=== PATIENT | male | born 1940 | race Caucasian/White ===

== ENCOUNTER 2020-08-05 11:58 | Outpatient (REF) | payer MEDICARE, SELFPAY | END 2020-08-05 11:59 | disposition home or self-care (01) | LOC: HO.LAB 11:58 | PROVIDERS: PCP Internal Medicine; Visit Provider Internal Medicine | DX: Z20.828 Contact with and (suspected) exposure to other viral communicable diseases (principal) | CPT/HCPCS: 87635 ==

== ENCOUNTER → 2020-08-10 12:46 | Outpatient (BNVA) | payer MEDICARE, SELFPAY | PROVIDERS: PCP Internal Medicine; Referring Provider Internal Medicine; Visit Provider Orthopaedic Surgery | DX: Z47.1 Aftercare following joint replacement surgery (principal); Z96.652 Presence of left artificial knee joint | CPT/HCPCS: 99212 ==

== ENCOUNTER 2020-08-11 08:59 | Outpatient (REF) | payer MEDICARE, SELFPAY ==
[2020-08-11 10:17] LABS: Hematocrit 42.2 % (42-52); Mean Corpuscular HGB Conc 33.2 g/dl (31.0-36.0); Mean Corpuscular Hemoglobin 32.9 pg (27.0-33.0); Mean Corpuscular Volume 99.1 fL (80-98); Mean Platelet Volume 9.6 fL (9.4-12.4); Platelet Count 250 X10*3/uL (160-400); Red Blood Count 4.26 X10*6/uL (4.60-5.80); Red Cell Distribution Width 12.8 % (11.0-16.0)
[2020-08-11 11:07] LABS: Anion Gap 12 (12-20); Blood Urea Nitrogen 12 mg/dL (9-16); Carbon Dioxide 28 mmol/L (22-29); Chloride 103 mmol/L (96-108); Estimated Glomerular Filt Rate > 60; Glucose Random 94 mg/dL (60-115); Potassium 4.2 mmol/l (3.3-5.1); Sodium 139 mmol/L (135-145)
== END 2020-08-11 09:00 | disposition home or self-care (01) ==
LOC: HO.LAB 08:59
PROVIDERS: PCP Internal Medicine; Visit Provider Physician Assistant
DX: R42 Dizziness and giddiness (principal)
CPT/HCPCS: 36415; 80048; 85027

== ENCOUNTER 2020-08-24 15:00 | Outpatient (RCR) | payer MEDICARE, SELFPAY ==
--- NOTE | 2020-07-27 14:00 | MHC.PT.EP ---
[facility] [place] [facility] [place] [facility] [place] [facility] [address] Gutierrez Oquendo [address] [phone] F: [phone] F: [phone] F: [phone] F: [phone] Physical Therapy Plan of Care Date of Evaluation: 07/27/20 Date of Surgery: 06/27/20 Diagnosis: s/p L TKA Assessment: 79 y/o male s/p L TKA 06/27/2020. Currently reports difficulty with ambulating > 0.5miles, ascending/descending stairs, and running. Examination shows decreased knee AROM 0-102, decreased L knee HS/quad/hip strength, increased swelling, and decreased patella mobility. Recommend PT 2x/week for 4 weeks to address impairments, implement HEP, and optimize functional mobility. Frequency and Duration: The patient will be seen 2x/week for 4 weeks Short Term Goals: 2 weeks: 1. I with HEP 2. Demonstrate 0-120 L knee AROM Tool Specialist Goals: 4 weeks: 1. Pt will ambulate >2miles with L knee pain < 3/10 2. Pt will ascend/descend stairs in step through pattern with pain < 3/10 Treatment Plan: Modalities to reduce pain, spasms and effusion. Manual therapy to restore motion and function. Therapeutic exercise to improve strength and flexibility. Neuromuscular re-education for posture and balance. Therapeutic activities to return to functional activities of daily living. Please sign and return to therapist. Thank you for your referral.
--- NOTE | 2020-08-24 15:55 | MHC.PT.DC ---
[facility] [place] Office [place] [facility] [place] [facility] [address] Gutierrez Oquendo [address] [phone] F: [phone] F: [phone] F: [phone] F: [phone] Physical Therapy Discharge Report Diagnosis: L TKA Date of Surgery: 06/27/20 Date of Evaluation: 07/27/20 Date of Discharge: 08/24/20 Treatments to Date: 4 Cancellations to Date: 4 No Shows to Date: 0 Discharge Status: Achieved Goals Discharge Summary: Pt has been making good progress and is now able to ascend/descend stairs in step through pattern and is walking over a mile/day. He has no pain in L knee, AROM 0-118 and I with HEP. We reviewed importance of continuing with strengthening and performing HEP with intent (slowly emphasizing eccentric control.) Electronically signed by: Roxane Bernstein, PT, DPT Please sign and return to therapist. Thank you for your referral.
== END 2020-08-24 15:56 | disposition other institution (70) ==
LOC: HO.PT 15:00
PROVIDERS: PCP Internal Medicine; Visit Provider Orthopaedic Surgery
DX: Z47.1 Aftercare following joint replacement surgery (principal); Z96.652 Presence of left artificial knee joint
CPT/HCPCS: 97110; 97161; 97530

== ENCOUNTER 2020-09-21 09:00 | Outpatient (REF) | payer MEDICARE, SELFPAY ==
--- NOTE | 2020-09-21 09:16 | XR_ITS ---
EXAMINATION: BILATERAL AP KNEE STANDING AND LEFT KNEE CLINICAL INFORMATION: Pain right knee. COMPARISON: AP bilateral knee 06/28/2020 and left knee 06/22/2020 TECHNIQUE: AP bilateral knee standing and left knee 1 view. FINDINGS: AP bilateral knee: There is a total left knee prosthesis with prosthetic components in satisfactory alignment. There is moderate loss of medial and mild loss of lateral compartment joint space right knee with periarticular spurring. No loose bodies or bony erosive changes seen. Left knee: There is mild suprapatellar joint effusion left knee on lateral view with superior and inferior cartilage heights. There is mild infrapatellar soft tissue swelling.. XR/XR knee standing BI IMPRESSION: Left knee prosthesis in satisfactory alignment. Moderate to severe degenerative arthritic changes medial compartment and mild arthritic changes lateral compartment right knee. There is moderate joint effusion left knee. The prosthetic components in satisfactory alignment. Also visualized is mild and inferior patellar soft tissue swelling.
--- NOTE | 2020-09-21 09:16 | XR_ITS ---
EXAMINATION: BILATERAL AP KNEE STANDING AND LEFT KNEE CLINICAL INFORMATION: Pain right knee. COMPARISON: AP bilateral knee 06/28/2020 and left knee 06/22/2020 TECHNIQUE: AP bilateral knee standing and left knee 1 view. FINDINGS: AP bilateral knee: There is a total left knee prosthesis with prosthetic components in satisfactory alignment. There is moderate loss of medial and mild loss of lateral compartment joint space right knee with periarticular spurring. No loose bodies or bony erosive changes seen. Left knee: There is mild suprapatellar joint effusion left knee on lateral view with superior and inferior cartilage heights. There is mild infrapatellar soft tissue swelling.. XR/XR knee LT 2V IMPRESSION: Left knee prosthesis in satisfactory alignment. Moderate to severe degenerative arthritic changes medial compartment and mild arthritic changes lateral compartment right knee. There is moderate joint effusion left knee. The prosthetic components in satisfactory alignment. Also visualized is mild and inferior patellar soft tissue swelling.
== END 2020-09-21 09:01 | disposition home or self-care (01) ==
LOC: HO.HOSX 09:00
PROVIDERS: Visit Provider Orthopaedic Surgery
DX: M25.562 Pain in left knee (principal); M25.561 Pain in right knee; Z96.652 Presence of left artificial knee joint
CPT/HCPCS: 73560; 73565; 99212

== ENCOUNTER → 2021-03-24 09:26 | Outpatient (BNVA) | payer MEDICARE, SELFPAY | PROVIDERS: PCP Internal Medicine; Visit Provider Orthopaedic Surgery | DX: M17.11 Unilateral primary osteoarthritis, right knee (principal) | CPT/HCPCS: 99212 ==

== ENCOUNTER → 2021-05-17 11:55 | Outpatient (BNVA) | payer MEDICARE, SELFPAY | PROVIDERS: PCP Internal Medicine; Visit Provider Physician Assistant | DX: M17.11 Unilateral primary osteoarthritis, right knee (principal) | CPT/HCPCS: 99212 ==

== ENCOUNTER 2021-05-22 05:55 | Day surgery (SDC) | payer MEDICARE, SELFPAY ==
--- NOTE | 2021-05-09 10:42 | ECG_ITS ---
Test Reason : PREOP Blood Pressure : / mmHG Vent. Rate : 062 BPM Atrial Rate : 062 BPM P-R Int : 208 ms QRS Dur : 096 ms QT Int : 406 ms P-R-T Axes : 060 -43 042 degrees QTc Int : 412 ms Normal sinus rhythm Left axis deviation Abnormal ECG When compared with ECG of 27-MAY-2020 13:10, No significant change was found Referred By: Syeda Instrum Electronically Signed By:KAHLIL SCHNEIDER
[2021-05-09 11:41] LABS: MANUAL DIFF FLAG NO
[2021-05-09 11:49] LABS: Basophils Percent Auto 0.7 % (0-2); Eosinophils Absolute Auto 0.1 X10*3/uL (0.0-0.4); Eosinophils Percent Auto 1.3 % (0-4); Hematocrit 41.2 % (42-52); Hemoglobin 14.1 g/dl (14.0-18.0); Imm Gran Abs Auto 0.01 X10*3/uL (0.00-0.03); Imm Gran Pct Auto 0.2 % (0.0-0.4); Lymphocytes Absolute Auto 1.5 X10*3/uL (1.2-4.9); Lymphocytes Percent Auto 26.8 % (20-40); Mean Corpuscular HGB Conc 34.2 g/dl (31.0-36.0); Mean Corpuscular Hemoglobin 33.3 pg (27.0-33.0); Mean Corpuscular Volume 97.2 fL (80-98); Mean Platelet Volume 10.4 fL (9.4-12.4); Monocytes Absolute Auto 0.5 X10*3/uL (0.1-1.2); Monocytes Percent Auto 9.2 % (2-11); Neutrophils Absolute Auto 3.4 X10*3/uL (2.0-8.3); Neutrophils Percent Auto 61.8 % (45-73); Platelet Count 176 X10*3/uL (160-400); Red Blood Count 4.24 X10*6/uL (4.60-5.80); Red Cell Distribution Width 12.5 % (11.0-16.0); White Blood Count 5.6 X10*3/uL (4.8-10.8)
[2021-05-09 12:08] LABS: Alanine Aminotransferase 20 U/L (0-40); Albumin Level 4.3 g/dL (3.5-5.0); Alkaline Phosphatase 72 U/L (39-117); Anion Gap 11 (12-20); Aspartate Amino Transferase 19 U/L (5-37); Bilirubin Total 0.7 mg/dL (0.0-1.0); Blood Urea Nitrogen 17 mg/dL (9-16); Calcium 9.3 mg/dL (8.4-10.2); Carbon Dioxide 27 mmol/L (22-29); Chloride 107 mmol/L (96-108); Cholesterol 163 mg/dL; Estimated Glomerular Filt Rate > 60; Glucose Random 92 mg/dL (60-115); HDL Cholesterol 34 mg/dL; LDL Cholesterol Calculated 80 mg/dl; Potassium 4.9 mmol/L (3.3-5.1); Sodium 140 mmol/L (135-145); Total Protein 7.4 g/dL (6.5-8.0); Triglycerides 245 mg/dL; Uric Acid 5.6 mg/dL (3.4-7.0)
[2021-05-09 12:29] LABS: Free T4 (Free Thyroxine) 0.95 ng/dL (0.71-1.85); Thyroid Stimulating Hormone 2.81 uIU/mL (0.32-4.0)
[2021-05-09 13:20] LABS: Folate 18.1 ng/mL (> or = 4.0); Vitamin B12 635 pg/mL (200-900)
[2021-05-11 11:45] VITALS: BP 119/69; PULSE 76; RESP 16; O2SAT 98; BMI 24.7
--- NOTE | 2021-05-11 12:12 | P.CONAN_ITS ---
Documented by User: Florinda Brittney 05/19/21 08:12 HPI - Anesthesia Eval Consult details Narrative: 80yo M for Right Total Knee Replacement No blood or blood products r/t gnosticism* [facility] Active Problems Active Problems: All Active Problems (Updated 03/24/21 @ 09:53 by Syeda Butts MD) Status post total knee replacement, left (Acute) Dizziness (Acute) BPPV (benign paroxysmal positional vertigo) (Acute) Primary osteoarthritis of right knee (Acute) Past Medical History Medical History Ganglion cyst of wrist Osteoarthritis of right knee Family History Family History Father No problems noted. Mother Diabetes Family history of problems with anesthesia: No Surgical History Surgical History H/O wrist surgery History of blepharoplasty History of inguinal hernia repair History of lumbar surgery Hx of colonoscopy Status post total left knee replacement (~06/27/20) History of Problems with Anesthesia: No Social History Social History Housing: House Are you a primary resident care spec to a significant other at home: No Do you presently have visiting nurse or other home services: No Alcohol intake: current Alcohol intake frequency: holidays/special occasions only Patient Tobacco Use Status: Former Tobacco user Quit Date: 1966 Tobacco use type: Cigarette e-Cigarette/Vaping Use: Never Used Second Hand Smoke Exposure: No Have you been hit, kicked, punched, or otherwise hurt by someone within the past year? If so, by whom?: No Yazdanism Healthcare Practices: Yarsanism-no blood products Are you DNR?: No Advance Directives: Yes Advance Directives Information Provided: Yes Advance Directives on File: Yes Advance Directives Date on File: 07/27/20 Recently lost weight without trying: No Poor oral hygiene: No service: Yes Current occupational status: retired Current occupation: Right Handed Narrative Narrative: No recent illness >4 mets with walking or stationar bike regularly No recent vertigo symptoms Meds Allergies Allergy/AdvReac Type Severity Reaction Status Date / Time naproxen [Aleve] Allergy Unknown nausea and Verified 05/22/21 06:07 vomiting Home Medications Medication Instructions Recorded Confirmed Last Taken Type celecoxib 200 mg capsule (Celebrex) 200 mg PO DAILY PRN 05/11/21 05/11/21 Unknown History glucosamine 750 mg-chondroitin 600 1 tab PO DAILY 05/11/21 05/11/21 Unknown History mg chewable tablet iron 18 mg tablet 18 mg PO DAILY 05/11/21 05/11/21 Unknown History axkbshonyyva-ytw-xbfpp acid-vit 1 tab PO DAILY 05/11/21 05/11/21 Unknown History K-lycop 400 mcg-20 mcg-370 mcg tablet (One-A-Day Amiato's 50 Plus) Exam Exam Date and Time: May 11, 2021 1212 Height,Weight and Vital Signs: Height 5 ft 5 in Weight 67.3 kg Last Vital Signs Pulse 76 05/11/21 11:45 Resp 16 05/11/21 11:45 BP 119/69 05/11/21 11:45 Pulse Ox 98 05/11/21 11:45 Pertinent Lab Results Pertinent Lab Results: Laboratory Tests 05/09/21 05/09/21 05/09/21 11:01 11:01 11:01 WBC 5.6 RBC 4.24 L Hgb 14.1 Hct 41.2 L MCV 97.2 MCH 33.3 H MCHC 34.2 RDW 12.5 Plt Count 176 D MPV 10.4 Immature Gran % (Auto) 0.2 Neut % (Auto) 61.8 Lymph % (Auto) 26.8 [place] % (Auto) 9.2 Eos % (Auto) 1.3 Baso % (Auto) 0.7 Lymph # (Auto) 1.5 [place]eman # (Auto) 0.5 Eos # (Auto) 0.1 Baso # (Auto) 0.0 Abs Immat Gran (auto) 0.01 Absolute Neuts (auto) 3.4 Absolute Nucleated RBC 0.000 Nucleated RBC % (auto) 0.0 Sodium 140 Potassium 4.9 Chloride 107 Carbon Dioxide 27 Anion Gap 11 L BUN 17 H Creatinine 0.86 Estim Creat Clear Calc TNP Estimated GFR > 60 Random Glucose 92 Uric Acid 5.6 Calcium 9.3 Total Bilirubin 0.7 AST 19 ALT 20 Alkaline Phosphatase 72 Total Protein 7.4 Albumin 4.3 Triglycerides 245 Cholesterol 163 LDL Cholesterol, Calc 80 HDL Cholesterol 34 Vitamin B12 635 Folate 18.1 TSH 2.81 Free T4 0.95 Narrative Narrative: EKG 04/2021 NSR @ 62 LAD No change from 05/2020 Airway Mallampati Class: I Neck ROM: Full Loose/Missing/Broken Teeth: No Heart: RRR Lungs: CTAB Assessment and Plan Assessment Anesthesia Assessment: Anesthesia Plan Discussed and PAT Visit Final Anesthetic Review Family History of Problems with Anesthesia: No History of Problems with Anesthesia: No Documented by User: Tamiko Fisher MD 05/22/21 07:11 [facility] Past Medical History Medical History Ganglion cyst of wrist Osteoarthritis of right knee Family History Family History Father No problems noted. Mother Diabetes Surgical History Surgical History H/O wrist surgery History of blepharoplasty History of inguinal hernia repair History of lumbar surgery Hx of colonoscopy Status post total left knee replacement (~06/27/20) Social History Social History Housing: House Are you a primary resident care spec to a significant other at home: No Do you presently have visiting nurse or other home services: No Alcohol intake: current Alcohol intake frequency: holidays/special occasions only Patient Tobacco Use Status: Former Tobacco user Quit Date: 1966 Tobacco use type: Cigarette e-Cigarette/Vaping Use: Never Used Second Hand Smoke Exposure: No Have you been hit, kicked, punched, or otherwise hurt by someone within the past year? If so, by whom?: No Yazdanism Healthcare Practices: Yarsanism-no blood products Are you DNR?: No Advance Directives: Yes Advance Directives Information Provided: Yes Advance Directives on File: Yes Advance Directives Date on File: 07/27/20 Recently lost weight without trying: No Poor oral hygiene: No service: Yes Current occupational status: retired Current occupation: Right Handed Meds Allergies Allergy/AdvReac Type Severity Reaction Status Date / Time naproxen [Aleve] Allergy Unknown nausea and Verified 05/22/21 06:07 vomiting Home Medications Medication Instructions Recorded Confirmed Last Taken Type celecoxib 200 mg capsule (Celebrex) 200 mg PO DAILY PRN 05/11/21 05/11/21 Unknown History glucosamine 750 mg-chondroitin 600 1 tab PO DAILY 05/11/21 05/11/21 Unknown History mg chewable tablet iron 18 mg tablet 18 mg PO DAILY 05/11/21 05/11/21 Unknown History cezaqoyxqpdp-zda-zlyam acid-vit 1 tab PO DAILY 05/11/21 05/11/21 Unknown History K-lycop 400 mcg-20 mcg-370 mcg tablet (One-A-Day Men's 50 Plus) Assessment and Plan Final Anesthetic Review NPO: Yes ASA Class: II Final Preanesthetic Review: No Changes in Pt Med Stat, Meds/Allgs Chart Reviewed, Consent Obtained/Reviewed and Anes Risks/Benef Reviewed Patient Risk: Low Procedure Risk: Intermediate Assessment/Block/Sedation in SS: Assess/Block/Sedation-SS Anesthetic Plan Anesthetic Plan: Spinal and Regional Block
[2021-05-11 15:15] LABS: MRSA Nasal PCR NEGATIVE (Negative); SA Nasal PCR NEGATIVE (Negative)
[2021-05-22] VITALS (12 sets, daily range): BP systolic 89–149; BP diastolic 60–81; PULSE 56–79; RESP 16–20; TEMP 35.8–37; O2SAT 96–100
--- NOTE | ~2021-05-22 | XR_ITS ---
EXAMINATION: XR KNEE, RIGHT CLINICAL INFORMATION: Postop. COMPARISON: Standing AP knees 09/21/2020, radiographs right knee 05/12/2019 TECHNIQUE: Portable AP and portable cross-table lateral views of the right knee. FINDINGS: There has been total knee arthroplasty. Hardware is intact. There is no acute fracture or dislocation or destructive process. There are overlying skin ilana. Knee effusion and subcutaneous emphysema is present, as expected. XR/XR knee RT 2V IMPRESSION: Status post right total knee arthroplasty.
[2021-05-22 06:50] LABS: COVID-19 Test Negative (Negative); IDNOW Serial# 9DD0AD1C
[2021-05-22] MEDS: Lactated Ringers 1,000 ML 80 ML IVCONT ×2 (06:59→21:35)
--- NOTE | 2021-05-22 07:36 | MHC.SHP ---
Pre-Procedural Eval Section A Date of Service: 05/22/21 The patient is an INPATIENT: No The History & Physical has been completed within 30 days and I have reviewed it.: Yes Section B Chief Complaint: Osteoarthritis Right knee Allergies: Allergies Allergy/AdvReac Type Severity Reaction Status Date / Time naproxen [Aleve] Allergy Unknown nausea and Verified 05/22/21 06:07 vomiting Plan I have reviewed the history and physical and performed a pertinent physical examination on my patient. No changes have occurred unless specified.
--- NOTE | 2021-05-22 09:16 | W.PM.OPN ---
Operative Note Operative Note Date of Service: 05/22/21 Narrative: SURGEON: Dr Syeda Scanlon) Beckie HEATON DRUM HANDLER: Lacey ANAND PREOP DIAGNOSIS: Osteoarthritis right knee POSTOP DIAGNOSIS: Same OPERATIVE PROCEDURE: Right Total knee arthroplasty - TARUN NEXGEN CRFlex size F, 6 x 12 mmtibial component, 32 mm mm patella component CLINICAL NOTE: This individual comes in today in regards to their knee. Has osteoarthritis. Has failed non operative management. Therefore after explaining the risks benefits and alternatives and answering all the questions it was mutually agreed upon care following procedure OPERATIVE DETAILS With of regional and spinal anesthetic the patient was placed supine on the operating table. Pneumatic tourniquet cuff was placed around the upper thigh and inflated to 300 mm of mercury at the beginning of the case. The leg was then prepped and draped in standard fashion with the leg free. Surgical time-out was then performed. The patient was identified. He is noted to be a Restorationism and therefore no blood products. confirmed. Site confirmed. Medical and allergy history reviewed. Preoperative antibiotics were given. Standard DVT prophylaxis in place. Transexamic acid was given as well. All other items were discussed and agreed upon. Standard small midline incision was made. Was taken down through the subcutaneous tissues. Hemostasis achieved along the way using electrocautery. This brought us to the extensor mechanism where a medial parapatellar arthrotomy in a subvastus technique was performed. The patella was retracted into the lateral gutter. The soft tissues were elevated from the anterior aspect of the femur. At the level of the tibia the soft tissue elevated medially excising a portion of the meniscus as well as protecting the medial-sided soft tissues. Similarly on the lateral side a portion of the fat pad, portion of the meniscus were excised. The lateral-sided soft tissues were elevated protecting them as well. The ACL was resected. We turned our attention then to the femur. Standard Intermedullary hole was established. The cutting guide was set for 5 degrees of valgus with a standard cut. It was held in place with pins and the surface resected flat. The sizing guide was then used. The femur was sized to a F. The 3 degree external rotation pins were set. The all in 1 cutting guide for this size was placed the pins and centered over the distal cut. Following this the anterior and anterior chamfer cuts, the posterior and posterior chamfer cuts, the patellar recess cuts, as well as the lug holes were made. The guide was removed. The bony fragments removed and we turned our attention to the tibia. The remainder of the medial and lateral menisci were excised. The extramedullary guide was then used in standard fashion referencing the tibial tubercle, the subcutaneous border of the tibia, and the middle of the ankle. The slope was then set. The cut was referenced from the more worn size for a minimal cut. The surface was then resected. The bony segment removed. The tibia was then trialed to a size 6. It was aligned as the extramedullary guide had been. A 12 mm trial insert was put into place. The femoral trial was also applied with good fit. The alignment of the leg was excellent. The knee was then placed through a range of motion which demonstrated full extension full flexion stable medially and laterally at 0, 30, 60, and 90 degrees of flexion. Patella tracked centrally. Turning our attention to the patella. The soft tissues were elevated circumferentially. The surface was resected flat. It sized to 32 mm . the lug hole was drilled in standard fashion. The trial component was put into place with excellent fit. It tracked nicely through flexion and extension. Therefore the trial sizes were appropriate and therefore the permanent components were selected and brought up onto the table. The trial components were then all removed after the peg holes for the tibia were made. The Aqua Mantis was then used in order to try and cauterize all potential bleeders up. The tourniquet was then let down with total tourniquet time of 49. The area of the lateral geniculate artery was identified and cauterized. Any excessive bleeding points were also cauterized. The knee was then thoroughly irrigated. The permanent components were brought up onto the table. The tibia followed by the femur followed by the patella were all Press-Fit into place. The knee was placed through range of motion. It had full flexion and extension. It was stable medial and laterally in all positions. Patella tracked centrally. And therefore we proceeded to closure. Wound was thoroughly irrigated. The extensor mechanism was closed with #2 Quill suture. The skin was approximated with 2-0 Polysorb suture. The skin was closed with ilana. Sterile dressing was then applied. The patient was then transferred supine to the room bed and taken to the recovery room in good condition. Intraoperatively a 2nd unit a transxemic acid was given at the time of closure. There was approximately 50 cc blood loss. No intraop transfusions or complications. .
[2021-05-22] MEDS: oxyCODONE HCl Immed Release 5 MG TABLET 10 MG PO ×3 (10:35→22:48)
--- NOTE | 2021-05-22 12:02 | P.CONIM_ITS ---
History of Present Illness Data of Consult Service Date: 05/22/21 Primary Care Provider: Maribell Jacinto MD [facility] Reason for consult: Medical evaluation 80 year old male with no singicant medicl problem other that what is listed below. He undewent elective knee replacement today due to OA that has not responded to conservative management. Presently without any complaint. Review of Systems Review of Systems: Gen: no fever Resp: no sob, no cough CV: no chest, no CHAN, no leg edema GI: No n/v, no abd pain Neuro: No confusion [facility] Medical History Ganglion cyst of wrist Osteoarthritis of right knee Family History Father No problems noted. Mother Diabetes Surgical History H/O wrist surgery History of blepharoplasty History of inguinal hernia repair History of lumbar surgery Hx of colonoscopy Status post total left knee replacement (~06/27/20) Social History Housing: House Are you a primary day care aide to a significant other at home: No Do you presently have visiting nurse or other home services: No Alcohol intake: current Alcohol intake frequency: holidays/special occasions only Patient Tobacco Use Status: Former Tobacco user Quit Date: 1966 Tobacco use type: Cigarette e-Cigarette/Vaping Use: Never Used Second Hand Smoke Exposure: No Have you been hit, kicked, punched, or otherwise hurt by someone within the past year? If so, by whom?: No Congregation Healthcare Practices: Church-no blood products Are you DNR?: No Advance Directives: Yes Advance Directives Information Provided: Yes Advance Directives on File: Yes Advance Directives Date on File: 07/27/20 Recently lost weight without trying: No Poor oral hygiene: No service: Yes Current occupational status: retired Current occupation: Right Handed Meds Allergies Allergy/AdvReac Type Severity Reaction Status Date / Time naproxen [Aleve] Allergy Unknown nausea and Verified 05/22/21 06:07 vomiting Active Medications: Current Medications Generic Name Dose Route Start Last Admin Trade Name Freq PRN Reason Stop Dose Admin Acetaminophen 650 mg 05/22/21 15:00 Acetaminophen 325 Mg Tablet PO Q6H [facility] Aspirin 325 mg 05/23/21 10:00 Aspirin 325 Mg Tablet PO BID@1000,2200 [facility] Lactated Ringer's 1,000 mls @ 80 mls/hr 05/22/21 06:00 05/22/21 10:11 Lr IVCONT Infused .[id number] [facility] Infusion Cefazolin Sodium 2 gm/ Sodium 50 mls @ 100 mls/hr 05/22/21 14:00 Chloride IV 05/22/21 14:29 POSTOP ONE Ketorolac Tromethamine 15 mg 05/22/21 15:00 Ketorolac Tromethamine 15 Mg/Ml Vial IVPUSH Q6H [facility] Morphine Sulfate 2 mg 05/22/21 09:23 Morphine Sulfate 2 Mg/Ml Cartridge IVPUSH Q2H PRN Pain, Severe (Pain Scale 7-10) Naloxone HCl 0.2 mg 05/22/21 09:23 Naloxone Hcl 0.4 Mg/Ml Vial IVPUSH Q2M PRN Excessive sedation or RR < 8 Ondansetron HCl 4 mg 05/22/21 09:23 Ondansetron Hcl 4 Mg/2 Ml Vial IVPUSH Q8H PRN Nausea and Vomiting Oxycodone HCl 10 mg 05/22/21 10:00 05/22/21 10:35 Oxycodone Hcl Immed Release 5 Mg Tablet PO 10 mg Q6H [facility] Administration Sodium Chloride 3 ml 05/22/21 16:00 0.9 % Sodium Chloride Flush 3 Ml Syringe IVFLUSH QSHIFT [facility] Home Medications Medication Instructions Recorded Confirmed Last Taken Type celecoxib 200 mg capsule (Celebrex) 200 mg PO DAILY PRN 05/11/21 05/11/21 Unknown History glucosamine 750 mg-chondroitin 600 1 tab PO DAILY 05/11/21 05/11/21 Unknown History mg chewable tablet iron 18 mg tablet 18 mg PO DAILY 05/11/21 05/11/21 Unknown History ajdsjhyanhqj-vse-xftzs acid-vit 1 tab PO DAILY 05/11/21 05/11/21 Unknown History K-lycop 400 mcg-20 mcg-370 mcg tablet (One-A-Day Men's 50 Plus) Physical Exam Vital Signs and Narrative: Vital Signs: Last Vital Signs Temp 96.8 F 05/22/21 10:45 Pulse 79 05/22/21 10:45 Resp 18 05/22/21 10:45 BP 116/63 05/22/21 10:45 Pulse Ox 100 05/22/21 10:45 Body Mass Index 24.7 Results Labs CBC and Chem 7: 05/09/21 11:01 05/09/21 11:01 Labs: Laboratory Results - last 24 hr 05/22/21 06:10 COVID-19 ([facility]ÍAS) Negative COVID-19 Clin Com See Note Assessment and Plan (1) Primary osteoarthritis of right knee: Status: Acute s/p Right TKR, no no medical issues. Continue post op care. Will sing off at this time.
--- NOTE | 2021-05-22 13:09 | MHC.CM.PN ---
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 PT HAS A CANE AND A WALKER BUT DOES NOT USUALLY NEED TO USE THEM. PT CONFIRMS HIS PCP IS JAYDE BEAR AND HE HAS A HCP ON FILE. PER PT, PT WILL NEED HOME PT AT DC. [facility] PER PT STATED PREFERENCE. DCP IS HOME WITH [facility] FOR PT FAMILY TO TRANPSORT
[2021-05-22] MEDS: Acetaminophen 325 MG TABLET 650 MG PO ×2 (14:17→21:18)
[2021-05-22] MEDS: Ketorolac Tromethamine 15 MG/ML VIAL IVPUSH ×2 (14:18→21:19)
[2021-05-22] MEDS: Morphine Sulfate 2 MG/ML CARTRIDGE IVPUSH (15:47)
[2021-05-23] VITALS (8 sets, daily range): BP systolic 108–136; BP diastolic 54–65; PULSE 53–63; RESP 18–20; TEMP 36.6–36.9; O2SAT 96–100
[2021-05-23] MEDS: Ketorolac Tromethamine 15 MG/ML VIAL IVPUSH ×2 (03:19→09:07)
[2021-05-23] MEDS: Acetaminophen 325 MG TABLET 650 MG PO ×2 (03:20→09:00)
[2021-05-23] MEDS: oxyCODONE HCl Immed Release 5 MG TABLET 10 MG PO ×2 (04:59→09:01)
[2021-05-23 07:43] LABS: Hematocrit 29.7 % (42-52); Hemoglobin 10.3 g/dl (14.0-18.0)
--- NOTE | 2021-05-23 07:58 | P.PNOP_ITS ---
Subjective Subjective Date of Service: 05/23/21 Interval history: POD1 s/p RTKA with Dr. Butts. No overnight events. Pain is well managed. No additional complaints. Physical Exam Vital Signs: Vital Signs: Last Vital Signs Temp 98.5 F 05/23/21 07:55 Pulse 53 05/23/21 07:55 Resp 20 05/23/21 07:55 BP 136/65 05/23/21 07:55 Pulse Ox 100 05/23/21 07:55 Body Mass Index 24.7 Const: General: cooperative, healthy appearing and no acute distress Resp: Effort & Inspection: normal respiratory effort and able to speak in comp lete sentences Cardio: Rate: regular rate Peripheral pulses: Peripheral pulses 2+ throughout GI: Palpation (GI): Soft to palpation Skin: Lesions: no lesions Rashes: no rashes Extrem: Other: Right knee no ecchymosis, redness, or drainage. Aquacel dressing is clean, dry, and intact. NVI. Procedures Date of Service Date of Service: 05/23/21 Progress Note: A&P Assessment and plan (1) Status post total knee replacement, right: Status: Acute Assessment and Plan: Continue pain mgmnt Begin ASA for dvt ppx begin PT for RTKA Dispo planning-Pending PT eval, pain mgmnt Fall Risk Details Current Medications: Current Medications Generic Name Dose Route Start Last Admin Trade Name Freq PRN Reason Stop Dose Admin Acetaminophen 650 mg 05/22/21 15:00 05/23/21 03:20 Acetaminophen 325 Mg Tablet PO 650 mg Q6H SAMANTA Administration Aspirin 325 mg 05/23/21 10:00 Aspirin 325 Mg Tablet PO BID@1000,2200 SAMANTA Lactated Ringer's 1,000 mls @ 80 mls/hr 05/22/21 06:00 05/22/21 21:35 Lr IVCONT 80 mls/hr .[id number] SAMANTA Administration Ketorolac Tromethamine 15 mg 05/22/21 15:00 05/23/21 03:19 Ketorolac Tromethamine 15 Mg/Ml Vial IVPUSH 15 mg Q6H SAMANTA Administration Morphine Sulfate 2 mg 05/22/21 09:23 05/22/21 15:47 Morphine Sulfate 2 Mg/Ml Cartridge IVPUSH 2 mg Q2H PRN Administration Pain, Severe (Pain Scale 7-10) Naloxone HCl 0.2 mg 05/22/21 09:23 Naloxone Hcl 0.4 Mg/Ml Vial IVPUSH Q2M PRN Excessive sedation or RR < 8 Ondansetron HCl 4 mg 05/22/21 09:23 Ondansetron Hcl 4 Mg/2 Ml Vial IVPUSH Q8H PRN Nausea and Vomiting Oxycodone HCl 10 mg 05/22/21 10:00 05/23/21 04:59 Oxycodone Hcl Immed Release 5 Mg Tablet PO 10 mg Q6H SAMANTA Administration Sodium Chloride 3 ml 05/22/21 16:00 05/23/21 00:49 0.9 % Sodium Chloride Flush 3 Ml Syringe IVFLUSH Not Given QSHIFT SAMANTA Time Spent With Patient Time: Total time spent is greater than 50% in coordination of care (as documented) at patient's floor/unit and/or counseling patient: Time with patient: less than 15 minutes Quality Stroke Does the patient have a stroke diagnosis?: No VTE Prior VTE?: No VTE Risk Level:: Surgical - high VTE Device Contraindication: N/A - Device Ordered VTE Drug Contraindication: N/A - Med Ordered
--- NOTE | 2021-05-23 08:18 | PM.DS ---
DS: Providers Provider Date of Service: 05/23/21 Primary care physician: Maribell Jacinto MD Consults: 05/22/21 09:23 Consult to Hospitalist Routine Consulting Provider: Hospitalist Reason For Exam: medical issues DS: Diagnosis Discharge Diagnosis (1) Status post total knee replacement, right: Status: Acute DS: Medications Discharge Medications Home Medications: Home Medications Medication Instructions Recorded Confirmed celecoxib 200 mg capsule (Celebrex) 200 mg PO DAILY PRN 05/11/21 05/11/21 glucosamine 750 mg-chondroitin 600 1 tab PO DAILY 05/11/21 05/11/21 mg chewable tablet iron 18 mg tablet 18 mg PO DAILY 05/11/21 05/11/21 [id number] acid-vit 1 tab PO DAILY 05/11/21 05/11/21 K-lycop 400 mcg-20 mcg-370 mcg tablet (One-A-Day Men's 50 Plus) Previous Rx's Medication Instructions Recorded acetaminophen 325 mg tablet 650 mg PO Q6H 30 Days #240 tab 05/23/21 aspirin 325 mg tablet 325 mg PO BID@1000,2200 14 Days 05/23/21 #28 tab docusate sodium 100 mg capsule 100 mg PO BID 30 Days #60 cap 05/23/21 (Colace) oxycodone 5 mg tablet 10 mg PO Q6H 7 Days #56 tab 05/23/21 DS: Summary Hospital Course Hospital Course: Mr Perez is a 81 yo male who presented to the office with ongoing right knee pain. 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 He continued to have difficulty with ambulation and daily activities; therefore he consented to move forward with Right total knee arthroplasty.? The patient underwent a successful Right total knee arthroplasty, she was transferred to PACU and then to the floor to recover. During their stay, their vitals were stable, afebrile at 98.2.. Labs were unremarkable, H/H 10.3/29.7. POD 1 he was started on Aspirin 325mg po bid for DVT ppx, they also received PhysicalTherapy services twice a day. Prior to discharge, their dressing was changed, incision clean dry and intact, new Aquacel dressing applied and the plan was to be discharged home with VNA services. Time Spent with Patient Time attestation: Total time spent providing and/or coordinating discharge services: Discharge coordination time: Less than 30 minutes Quality: Stroke Does the patient have a stroke diagnosis?: No Physical Exam Vital Signs: Vital Signs: Last Vital Signs Temp 98.5 F 05/23/21 07:55 Pulse 53 05/23/21 08:04 Resp 20 05/23/21 07:55 BP 136/65 05/23/21 08:04 Pulse Ox 100 05/23/21 08:04 Body Mass Index 24.7 Const: General: cooperative, healthy appearing and no acute distress Resp: Effort & Inspection: normal respiratory effort and able to speak in complete sentences Cardio: Rate: regular rate Peripheral pulses: Peripheral pulses 2+ throughout GI: Palpation (GI): Soft to palpation Skin: Lesions: no lesions Rashes: no rashes Extrem: Other: Right knee no ecch ymosis, redness, o r drainage. Aquace l dressing is caden n, dry, and intact . NVI. DS: Data Data Completed and Pending Pending studies at discharge: Pending at discharge 05/22/21 08:57 Surgical [PTH] Routine Labs on day of discharge: Laboratory Results - last 24 hr 05/23/21 07:06 Hgb 10.3 L D Hct 29.7 L D Discharge Plan Discharge Patient Disposition: Home, Self-Care Referrals: Lacey Netwon PA-C [Physician Plastic Surgery Manager] - 1 Week (06/07/21 @ 1:00pm) Po,Maribell Stein MD [Primary Care Provider] - 1 Week Discharge Medications: New acetaminophen 325 mg Tablet 650 mg PO Q6H 30 Days Qty: 240 RF: 0 aspirin 325 mg Tablet 325 mg PO BID@1000,2200 14 Days Qty: 28 RF: 0 oxycodone 5 mg Tablet 10 mg PO Q6H 7 Days Qty: 56 RF: 0 docusate sodium [Colace] 100 mg capsule 100 mg PO BID 30 Days Qty: 60 RF: 0 Continued celecoxib [Celebrex] 200 mg capsule 200 mg PO DAILY PRN (Reason: Pain) RF: 0 iron 18 mg Tablet 18 mg PO DAILY RF: 0 One-A-Day Men's 50 Plus 400-20-370 mcg Tablet 1 tab PO DAILY RF: 0 glucosamine-chondroitin 750-600 mg Tablet,Chewable 1 tab PO DAILY RF: 0 Discharge Orders: Discharge Order (Routine); Ordered 05/23/21 Ordered By: Nury Dangelo Activity Restrictions/Additional Instructions: Physical Therapy for ROM 0-120, quad strength, gait training. Use walker for ambulation Limit stair climbing, No shower, No tub bath, No driving Continue anticoagulant Keep Aquacel dressing clean, dry and intact. Follow up with orthopedics in 2 weeks
--- NOTE | 2021-05-23 08:44 | MHC.CM.PN ---
PT DISCHARGING TODAY HOME W/HVNA FOR PT, FAMILY FOR TRANSPORT, PT WILL D/C'D ON ASA 325MG BID X 14DAYS.
--- NOTE | 2021-05-23 08:47 | P.F2F_ITS ---
Service Date Service Date: 05/23/21 Encounter Date of encounter: 05/23/21 Reasons for Services Reason for physical therapy: home safety and mobility, therapeutic exercises, restore joint function, gait/transfer training, assess need for DME and ADL training Reason for occupational therapy: home safety and mobility, therapeutic exercises, restore joint function, gait/transfer training, assess need for DME and ADL training Homebound: Leaving the home is medically contraindicated at this time without the asist of a device and/or another person due th the listed conditions above and below. Reason homebound: unsteady gait / fall risk, leg weakness, pain with ambulation, pain with transfers and unable to drive Homebound supporting statement: Pt. is considered homebound due to recent surgery. Unable to drive, poor balance, poor gait mechanics. Certification: Based on the above findings, I certify that this patient is confined to the home and needs intermittent [facility] care, physical therapy and/or speech therapy, or continues to need occupational therapy. The patient is under my care, and I have initiated the establishment of the plan of care. The patient will be followed by a physician who will periodically review the plan of care.
[2021-05-23] MEDS: Aspirin 325 MG TABLET PO (09:02)
[2021-05-23] MEDS: 0.9 % Sodium Chloride Flush 3 ML SYRINGE IVFLUSH (09:07)
--- NOTE | 2021-05-23 11:12 | HO.POSTANES ---
Post Anesthesia Evaluation Post Anesthesia Evaluation Vital Signs: Vital Signs Temp Pulse Resp BP Pulse Ox 05/23/21 09:52 53 136/65 100 05/23/21 08:04 53 136/65 100 05/23/21 07:55 98.5 F 53 20 136/65 100 05/23/21 06:25 18 05/23/21 04:26 18 05/23/21 04:00 98.2 F 59 18 111/57 L 97 05/23/21 00:36 20 05/23/21 00:00 97.9 F 63 19 108/54 L 96 Anesthesia: Spinal and Nerve Block Mental Status: Awake Pain Control: Satisfactory Nausea/Vomiting: None Hydration: Adequate Anesthesia-Related Issues: No Anes. Related Issues
--- NOTE | 2021-05-23 11:58 | PC.NURSE ---
pt discharged home . Iv removed instructions given and understood. pt agrees with discharge plan
== END 2021-05-23 11:58 | disposition home or self-care (01) ==
LOC: HO.SSS 05:55 → HO.S3 09:21
PROVIDERS: Physician Assistant; PCP Internal Medicine; Visit Provider Orthopaedic Surgery
PROC: (CPT 27447; principal; 2021-05-22 07:30)
DX: M17.11 Unilateral primary osteoarthritis, right knee (principal); M25.561 Pain in right knee; Z96.652 Presence of left artificial knee joint; Z79.899 Other long term (current) drug therapy; Z20.822 Contact with and (suspected) exposure to COVID-19; Z87.891 Personal history of nicotine dependence
CPT/HCPCS: 27447; 36415; 73560; 80053; 80061; 82607; 82746; 84439; 84443; 84550; 85014; 85018; 85025; 87635; 87640; 87641; 88305; 88311; 93005; 97110; 97116; 97162; 97165; C1776; J0131; J0690; J1100; J1885; J2250; J2270; J2370; J2405; J3010

== ENCOUNTER → 2021-05-30 11:09 | Outpatient (BNVA) | payer MEDICARE, SELFPAY | PROVIDERS: PCP Internal Medicine; Visit Provider Orthopaedic Surgery ==

== ENCOUNTER → 2021-06-07 12:51 | Outpatient (BNVA) | payer MEDICARE, SELFPAY | PROVIDERS: PCP Internal Medicine; Visit Provider Orthopaedic Surgery | DX: Z47.1 Aftercare following joint replacement surgery (principal); Z96.651 Presence of right artificial knee joint | CPT/HCPCS: 99212 ==

== ENCOUNTER 2021-07-03 08:00 | Outpatient (RCR) | payer MEDICARE, SELFPAY ==
--- NOTE | 2021-06-16 16:22 | MHC.PT.EP ---
[facility] [place] Office [place] Office [place] Office [address] [phone] F: [phone] F: [phone] F: [phone] F: [phone] Physical Therapy Plan of Care Date of Evaluation: Date of Surgery: 05/22/21 Diagnosis: RIGHT TKA Assessment: Pt IS 80 YO M S/P R TKR ON 05/22/[address] MAR. IN HOSPITAL OVERNIGHT THEN HOME AND HOME PT. PRESENTS WITHOUT AD WITH ONLY MINIMAL LIMP, GOOD ROM WITHOUT SIGNIF SWELLING, DECENT QUAD CONTRACTION (ABLE TO PERF SLR WITHOUT QUAD LAG). HD L TKR ABOUT 2 YEARS AGO. GOOD PT CANDIDATE FOR PT TO PROGRESS EX AND PROPRIOCEPTION. Pt WOULD LIKE TO GET BACK TO USING STATIONARY BIKE AND TM Frequency and Duration: The patient will be seen 2X/WK X 3 WEEKS THEN 1X/WK X 2 WKS Short Term Goals: 1. I HEP WITH DC EX PLAN 2. R KNEE ROM 0-120 3. INCREASED AWARENESS KNEE CARE 4. NEG LIMP WITH GT 5. STAIR NEGOTIATION STEP OVER STEP (Pt REPORTS ONE STEP AT A TIME) Fpc Goals: 1. DECREASED R KNEE PAIN AT LEAST 50% WITH ADLS 2. DECREASED R KNEE SWELLING 1/4 INCH 3. R KNEE ROM 0-125 Treatment Plan: Modalities to reduce pain, spasms and effusion. Manual therapy to restore motion and function. Therapeutic exercise to improve strength and flexibility. Neuromuscular re-education for posture and balance. Therapeutic activities to return to functional activities of daily living. Electronically signed by: ANJALI GILLESPIE PT Please sign and return to therapist. Thank you for your referral.
--- NOTE | 2021-07-26 15:51 | MHC.PT.DC ---
[facility] [place] Office [place] Office [place] Office [address] Gutierrez Oquendo [address] [phone] F: [phone] F: [phone] F: [phone] F: [phone] Physical Therapy Discharge Report Diagnosis: RIGHT TKA Date of Surgery: 05/22/21 Date of Evaluation: 06/16/21 Date of Discharge: 07/26/21 Treatments to Date: 4 Cancellations to Date: No Shows to Date: Discharge Status: Achieved Goals Improved Function Independent with HEP Discharge Summary: HAS MET PT GOALS, HAS HEP, TO SEE ORTHO ON SAT. PLAN IS TO DC ( LONG OK WITH ORTHO (Pt TO CALL TO CX LAST APPT IF OK WITH ORTHO). NO FURTHER APPTS PER Pt Electronically signed by: ANJALI GILLESPIE PT Please sign and return to therapist. Thank you for your referral.
== END 2021-07-26 15:52 | disposition home or self-care (01) ==
LOC: HO.PT 08:00
PROVIDERS: PCP Internal Medicine; Visit Provider Orthopaedic Surgery
DX: Z96.651 Presence of right artificial knee joint (principal)
CPT/HCPCS: 97110; 97161; 97530

== ENCOUNTER → 2021-07-05 10:32 | Outpatient (BNVA) | payer MEDICARE, SELFPAY | PROVIDERS: PCP Internal Medicine; Visit Provider Physician Assistant | DX: Z47.1 Aftercare following joint replacement surgery (principal); Z96.651 Presence of right artificial knee joint | CPT/HCPCS: 99212 ==

== ENCOUNTER 2021-08-17 09:53 | Outpatient (REF) | payer MEDICARE, SELFPAY ==
--- NOTE | ~2021-08-17 | XR_ITS ---
EXAMINATION: XR KNEE, BILATERAL AP STANDING XR KNEE, RIGHT CLINICAL INFORMATION: Pain. COMPARISON: Right knee radiographs dated 05/23/2021. Left knee radiographs dated 09/21/2020. TECHNIQUE: Standing AP view of both knees and lateral and sunrise views of the right knee. FINDINGS: RIGHT KNEE: Total right knee arthroplasty. No acute hardware or osseous fracture. No perihardware lucency to suggest loosening or infection. Small joint effusion. Small focus of dystrophic ossification versus an ossified loose body along the posterior aspect of the tibial plateau measuring up to 1.2 cm. LEFT KNEE: Total left knee arthroplasty. No acute hardware or osseous fracture. No perihardware lucency to suggest loosening or infection. No abnormal soft tissue calcification. XR/XR knee RT 2V IMPRESSION: Right knee: Total right knee arthroplasty without evidence of hardware complication. Posterior dystrophic ossification versus loose body measuring 1.2 cm. Small joint effusion. Left knee: Total left knee arthroplasty without evidence of complication.
--- NOTE | ~2021-08-17 | XR_ITS ---
EXAMINATION: XR KNEE, BILATERAL AP STANDING XR KNEE, RIGHT CLINICAL INFORMATION: Pain. COMPARISON: Right knee radiographs dated 05/23/2021. Left knee radiographs dated 09/21/2020. TECHNIQUE: Standing AP view of both knees and lateral and sunrise views of the right knee. FINDINGS: RIGHT KNEE: Total right knee arthroplasty. No acute hardware or osseous fracture. No perihardware lucency to suggest loosening or infection. Small joint effusion. Small focus of dystrophic ossification versus an ossified loose body along the posterior aspect of the tibial plateau measuring up to 1.2 cm. LEFT KNEE: Total left knee arthroplasty. No acute hardware or osseous fracture. No perihardware lucency to suggest loosening or infection. No abnormal soft tissue calcification. XR/XR knee standing BI IMPRESSION: Right knee: Total right knee arthroplasty without evidence of hardware complication. Posterior dystrophic ossification versus loose body measuring 1.2 cm. Small joint effusion. Left knee: Total left knee arthroplasty without evidence of complication.
== END 2021-08-17 09:54 | disposition home or self-care (01) ==
LOC: HO.HOSX 09:53
PROVIDERS: PCP Internal Medicine; Visit Provider Orthopaedic Surgery
DX: Z47.1 Aftercare following joint replacement surgery (principal); Z96.651 Presence of right artificial knee joint
CPT/HCPCS: 73560; 73565; 99212

== ENCOUNTER 2021-09-18 07:33 | Outpatient (REF) | payer MEDICARE, SELFPAY ==
[2021-09-18 08:40] LABS: Baso%MD 0.5 %; Eos%MD 1.4 %; Hematocrit 43.8 % (42.0-52.0); Hemoglobin 14.8 g/dl (14.0-18.0); IG%MD 0.2 %; Lymph%MD 27.6 %; Mean Corpuscular HGB Conc 33.8 g/dl (31.0-36.0); Mean Corpuscular Hemoglobin 32.4 pg (27.0-33.0); Mean Corpuscular Volume 95.8 fL (80.0-98.0); Mean Platelet Volume 9.8 fL (9.4-12.4); Mono%MD 9.2 %; Neut%MD 61.1 %; Platelet Count 206 X10*3/uL (160-400); Red Blood Count 4.57 X10*6/uL (4.60-5.80); Red Cell Distribution Width 12.2 % (11.0-16.0); White Blood Count 5.8 X10*3/uL (4.8-10.8)
[2021-09-18 08:48] LABS: Estimated Average Glucose 103 mg/dL; Hemoglobin A1C 124.5905 umol/L; Hemoglobin A1c % 5.2 %
[2021-09-18 09:11] LABS: Alanine Aminotransferase 20 U/L (0-40); Albumin Level 4.2 g/dL (3.5-5.0); Alkaline Phosphatase 80 U/L (39-117); Anion Gap 11 (12-20); Aspartate Amino Transferase 22 U/L (5-37); Bilirubin Total 0.7 mg/dL (0.0-1.0); Blood Urea Nitrogen 14 mg/dL (9-16); Calcium 9.7 mg/dL (8.4-10.2); Carbon Dioxide 30 mmol/L (22-29); Chloride 105 mmol/L (96-108); Cholesterol 157 mg/dL; Estimated Glomerular Filt Rate > 60; Glucose Fasting 90 mg/dL (60-99); HDL Cholesterol 32 mg/dL; LDL Cholesterol Calculated 73 mg/dl; Sodium 141 mmol/L (135-145); Total Protein 7.4 g/dL (6.5-8.0); Triglycerides 264 mg/dL
[2021-09-18 09:22] LABS: Band Neutrophils Percent 0 % (3-5); Basophils Abs Manual 0.2 X10*3/uL (0.0-0.2); Basophils Percent Manual 3 % (0-2); Eosinophils Absolute Manual 0.2 X10*3/uL (0.0-0.4); Eosinophils Percent Manual 3 % (0-4); Lymphocytes Percent Manual 18 % (20-40); Monocytes Absolute Manual 0.2 X10*3/uL (0.1-1.2); Monocytes Percent Manual 4 % (2-11); Neutrophils Absolute Manual 4.2 X10*3/uL (2.0-8.3); Neutrophils Percent Manual 72 % (45-73)
[2021-09-18 09:23] LABS: Platelet Estimate NORMAL (NORMAL); Platelet Morphology Comment NORMAL; RBC Morphology NORMAL
[2021-09-18 09:34] LABS: Prostate Specific Antigen Scr 0.74 ng/mL (<0.05-4.0)
== END 2021-09-18 07:34 | disposition home or self-care (01) ==
LOC: HO.LAB 07:33
PROVIDERS: PCP Internal Medicine; Visit Provider Nurse Practitioner Acute Care
DX: Z01.812 Encounter for preprocedural laboratory examination (principal); Z13.1 Encounter for screening for diabetes mellitus; Z13.220 Encounter for screening for lipoid disorders; Z12.5 Encounter for screening for malignant neoplasm of prostate
CPT/HCPCS: 36415; 80048; 80053; 80061; 83036; 84153; 85007; 85027

== ENCOUNTER 2021-09-28 09:44 | Outpatient (REF) | payer MEDICARE, SELFPAY ==
--- NOTE | ~2021-09-28 | MM_ITS ---
EXAMINATION: BONE DENSITOMETRY CLINICAL INDICATION: Encounter for screening for osteoporosis. COMPARISON: This is the patient's baseline examination. TECHNIQUE: Using a [employer] DXA System (software version: 13.1) manufactured by [employer], dual-energy x-ray absorptiometry was performed of the lumbar spine and left hip. The images are of good technical quality. Summary results are attached. FINDINGS: AP SPINE L1-L3 (excluding L4): The data of L1-L4 has been changed to exclude the L4 vertebral body, because hardware or other artifact at this level may cause overestimation of lumbar spine density. BMD 1.044 g/cm2, Z-score -0.3, T-score -1.4, osteopenia. LEFT FEMUR, NECK: BMD 0.829 g/cm2, Z-score 0.0, T-score -1.9, osteopenia. LEFT FEMUR, TOTAL: BMD 0.996 g/cm2, Z-score 0.6, T-score -0.7, normal. IDENTIFIED RISK FACTORS: None listed. HISTORY OF FRACTURE: None listed. MEDICATIONS: Calcium supplements or multivitamin, vitamin D. MM/XR DEXA axial skeleton IMPRESSION: 1. DIAGNOSIS: Osteopenia based on the lowest T-score value of -1.9 in the femoral neck applying World Health Organization criteria. 2. 10-YEAR FRACTURE RISK PREDICTION, FRAX: Major osteoporotic fracture (clinical spine, forearm, hip or shoulder) 5.3%. Hip fracture 2.0%. 3. Treatment Recommendations: NOF guidelines recommend consideration for treatment in postmenopausal women and men age 50 and older presenting with the following: -A hip or vertebral (clinical or morphometric) fracture. -T-score less than or equal to -2.5 at the femoral neck or spine after appropriate evaluation to exclude secondary causes. -Low bone mass at the hip or spine and a 10-year fracture probability by FRAX of greater than or equal to 3% for hip fracture or greater than or equal to 20% for major osteoporotic fracture based on the [place] adapted WHO algorithm. 4. Other Recommendations: All treatment decisions require clinical judgment and consideration of individual patient factors, including patient preferences, comorbidities, previous drug use, risk factors not captured in the FRAX model (e.g. frailty, falls, vitamin D deficiency, increased bone turnover, interval significant decline in bone density) and possible under or overestimation of fracture risk by FRAX. Additional medical evaluation for secondary cause of low bone mineral density may be appropriate. FUTURE SCAN RECOMMENDATION: People with diagnosed cases of osteoporosis or at high risk for fracture should have regular bone mineral density tests. For patients eligible for Medicare, routine testing is allowed once every 2 years. The testing frequency can be increased to one year for patients who have rapidly progressing disease, those who are receiving or discontinuing medical therapy to restore bone mass, or have additional risk factors.
== END 2021-09-28 09:45 | disposition home or self-care (01) ==
LOC: HO.MAMMO 09:44
PROVIDERS: PCP Internal Medicine; Visit Provider Nurse Practitioner Acute Care
DX: Z13.820 Encounter for screening for osteoporosis (principal); M85.80 Other specified disorders of bone density and structure, unspecified site; Z79.899 Other long term (current) drug therapy
CPT/HCPCS: 77080

== ENCOUNTER 2022-07-03 06:49 | Outpatient (REF) | payer MEDICARE, SELFPAY ==
[2022-07-03 06:59] LABS: MANUAL DIFF FLAG NO
[2022-07-03 07:17] LABS: Basophils Absolute Auto 0.1 X10*3/uL (0.0-0.2); Basophils Percent Auto 0.8 % (0-2); Eosinophils Absolute Auto 0.1 X10*3/uL (0.0-0.4); Eosinophils Percent Auto 1.2 % (0-4); Hematocrit 43.4 % (42.0-52.0); Hemoglobin 15.1 g/dl (14.0-18.0); Imm Gran Abs Auto 0.02 X10*3/uL (0.00-0.03); Imm Gran Pct Auto 0.3 % (0.0-0.4); Immature Retic Fraction 12.2 % (2.3-13.4); Lymphocytes Absolute Auto 1.7 X10*3/uL (1.2-4.9); Lymphocytes Percent Auto 26.2 % (20-40); Mean Corpuscular HGB Conc 34.8 g/dl (31.0-36.0); Mean Corpuscular Hemoglobin 33.2 pg (27.0-33.0); Mean Corpuscular Volume 95.4 fL (80.0-98.0); Mean Platelet Volume 9.4 fL (9.4-12.4); Monocytes Absolute Auto 0.5 X10*3/uL (0.1-1.2); Monocytes Percent Auto 7.7 % (2-11); Neutrophils Absolute Auto 4.1 x10*3/uL (2.0-8.3); Neutrophils Percent Auto 63.8 % (45-73); Platelet Count 212 X10*3/uL (160-400); Red Blood Count 4.55 X10*6/uL (4.60-5.80); Red Cell Distribution Width 12.5 % (11.0-16.0); Retic HGB Equivalent 38.7 pg (30.0-35.0); Reticulocyte Percent 1.4 % (0.5-1.8); Reticulocytes Absolute 0.064 X10*6/uL (0.026-0.095); White Blood Count 6.5 X10*3/uL (4.8-10.8)
[2022-07-03 07:57] LABS: Alanine Aminotransferase 23 U/L (0-40); Albumin Level 4.3 g/dL (3.5-5.0); Alkaline Phosphatase 76 U/L (39-117); Anion Gap 14 (12-20); Aspartate Amino Transferase 25 U/L (5-37); Blood Urea Nitrogen 13 mg/dL (9-16); Calcium 9.4 mg/dL (8.4-10.2); Carbon Dioxide 28 mmol/L (22-29); Chloride 103 mmol/L (96-108); Cholesterol 157 mg/dL; Estimated Glomerular Filt Rate > 60; Glucose Random 98 mg/dL (60-115); HDL Cholesterol 35 mg/dL; Iron 140 mcg/dL (45-160); LDL Cholesterol Calculated 82 mg/dl; Potassium 4.3 mmol/L (3.3-5.1); Sodium 141 mmol/L (135-145); Total Protein 7.5 g/dL (6.5-8.0); Triglycerides 202 mg/dL
[2022-07-03 08:09] LABS: Percent Iron Saturation 42 % (15-50); Total Iron Binding Capacity 337 mcg/dL (228-428); Unsaturated Iron Binding 197 ug/dL
[2022-07-03 08:15] LABS: Ferritin 63 ng/mL (20-250); Free T4 (Free Thyroxine) 0.91 ng/dL (0.71-1.85); Thyroid Stimulating Hormone 2.63 uIU/mL (0.32-4.0)
[2022-07-03 08:25] LABS: Folate 16.5 ng/mL (> or = 4.0); Vitamin B12 841 pg/mL (200-900)
== END 2022-07-03 06:50 | disposition home or self-care (01) ==
LOC: HO.LAB 06:49
PROVIDERS: Orthopaedic Surgery; PCP Internal Medicine; Visit Provider Internal Medicine
DX: Z01.812 Encounter for preprocedural laboratory examination (principal); E78.00 Pure hypercholesterolemia, unspecified; Z96.651 Presence of right artificial knee joint
CPT/HCPCS: 36415; 80053; 80061; 82607; 82728; 82746; 83540; 84439; 84443; 85025; 85045

== ENCOUNTER 2022-09-17 | Outpatient (REF) | payer MEDICARE, SELFPAY ==
--- NOTE | ~2022-09-17 | XR_ITS ---
EXAMINATION: XR KNEE, STANDING AP XR KNEE, RIGHT CLINICAL INFORMATION: Knee pain COMPARISON: Standing AP knees and right knee radiographs 08/17/2021. TECHNIQUE: Standing AP view of both knees is performed. Additional lateral and axial patella views of the right knee are also obtained. FINDINGS: Right: There is been prior total knee arthroplasty. Hardware is intact. There is no fracture, dislocation, destructive process, or osteolysis. Axial view patella shows no lateralization or tilting. There is moderate suprapatellar effusion. Small oval corticated ossicle again is seen overlying the posterior central knee joint similar in location to prior exam. Left: Status post prior knee arthroplasty. Hardware intact. No destructive process or osteolysis. XR/XR knee RT 2V IMPRESSION: Right: -Status post total knee arthroplasty. Hardware intact. No destructive process or osteolysis. -Corticated ossicle or dystrophic ossification posterior central joint, stable. -Moderate suprapatellar effusion. No lateralization or tilting patella. Left: -Status post knee arthroplasty. Hardware intact. No destructive process or osteolysis.
--- NOTE | ~2022-09-17 | XR_ITS ---
EXAMINATION: XR KNEE, STANDING AP XR KNEE, RIGHT CLINICAL INFORMATION: Knee pain COMPARISON: Standing AP knees and right knee radiographs 08/17/2021. TECHNIQUE: Standing AP view of both knees is performed. Additional lateral and axial patella views of the right knee are also obtained. FINDINGS: Right: There is been prior total knee arthroplasty. Hardware is intact. There is no fracture, dislocation, destructive process, or osteolysis. Axial view patella shows no lateralization or tilting. There is moderate suprapatellar effusion. Small oval corticated ossicle again is seen overlying the posterior central knee joint similar in location to prior exam. Left: Status post prior knee arthroplasty. Hardware intact. No destructive process or osteolysis. XR/XR knee standing BI IMPRESSION: Right: -Status post total knee arthroplasty. Hardware intact. No destructive process or osteolysis. -Corticated ossicle or dystrophic ossification posterior central joint, stable. -Moderate suprapatellar effusion. No lateralization or tilting patella. Left: -Status post knee arthroplasty. Hardware intact. No destructive process or osteolysis.
== END 2022-09-17 00:01 | disposition home or self-care (01) ==
LOC: HO.HOSX
PROVIDERS: Visit Provider Orthopaedic Surgery
DX: T84.84XA Pain due to internal orthopedic prosthetic devices, implants and grafts, initial encounter (principal); Z96.651 Presence of right artificial knee joint
CPT/HCPCS: 73560; 73565; 99212

== ENCOUNTER 2022-11-05 08:00 | Outpatient (RCR) | payer OTHER, SELFPAY ==
[2022-11-02 08:01] VITALS: BP 130/72; PULSE 79
--- NOTE | 2022-11-02 08:55 | MHC.PT.EP ---
[facility] [place] Office [place] Office [place] Office [address] Gutierrez Oquendo [address] [phone] F: [phone] F: [phone] F: [phone] F: [phone] Physical Therapy Plan of Care Date of Evaluation: Date of Surgery: NA Diagnosis: BPPV Assessment: Onel is a 82 year old male who is referred to PT for BPPV . He reports of having sudden onset of room spinning dizziness about 3 weeks back. His symptoms are present with rolling to R, looking up and down. They last only for a few seconds. Denies any nausea or vomiting. On PT examination he presented with intact smooth pursuit, visual tracking, saccades, DVA and negative VBI. He presented with good static and dynamic balance. He was positive for nystagmus and vertigo in R christina pike. L christina pike and B roll test not tested. He is independent with ADLS however moves slowly through certain position to avoid dizziness. He would benefit from skilled PT to address the aforementioned impairments and improve tolerance to functional activities. Frequency and Duration: The patient will be seen 2/week for 4 weeks Short Term Goals: Long-Term Goals: Patient to be educated on symptoms and indications to return to therapy when needed min 4 weeks. Pt will be negative for nystagmus or reports of vertigo in all diagnostic positions bilaterally to resolution of BPPV in 4 weeks. Patient to be able to functionally move in all planes and directions without provocation of dizziness to show return to PLOF in 4 weeks. Treatment Plan: Modalities to reduce pain, spasms and effusion. Manual therapy to restore motion and function. Therapeutic exercise to improve strength and flexibility. Neuromuscular re-education for posture and balance. Therapeutic activities to return to functional activities of daily living. Electronically signed by: Flores Alfaro PT DPT Please sign and return to therapist. Thank you for your referral.
--- NOTE | 2022-12-10 11:52 | MHC.PT.DC ---
[facility] [place] Office [place] Office [place] Office [address] [phone] F: [phone] F: [phone] F: [phone] F: [phone] Physical Therapy Discharge Report Diagnosis: BPPV Date of Surgery: NA Date of Evaluation: 11/02/22 Date of Discharge: 12/10/22 Treatments to Date: 2 Cancellations to Date: 0 No Shows to Date: 0 Discharge Status: Achieved Goals Improved Function Independent with HEP Discharge Summary: Onel has not had symptoms of vestibular dysfunction in over a month. He has therefore been d/c from PT. Electronically signed by: Flores Alfaro PT DPT Please sign and return to therapist. Thank you for your referral.
== END 2022-12-10 11:52 | disposition home or self-care (01) ==
LOC: HO.PT 08:00
PROVIDERS: PCP Internal Medicine; Visit Provider Otolaryngology
DX: H81.10 Benign paroxysmal vertigo, unspecified ear (principal)
CPT/HCPCS: 95992; 97112; 97161

== ENCOUNTER 2023-04-11 07:50 | Emergency (ER) | payer OTHER, MEDICARE, SELFPAY ==
--- NOTE | ~2023-04-11 | US_ITS ---
EXAMINATION: US VENOUS ULTRASOUND WITH DOPPLER LOWER EXTREMITY, LEFT CLINICAL INFORMATION: Left lower extremity pain. COMPARISON: None available. TECHNIQUE: Ultrasound of the deep veins is performed from the hip to the calf with compression sonography and color and pulse Doppler assessment. Spectral analysis with color-flow imaging is performed. FINDINGS: There is normal venous compression and respiratory variation and augmented flow. The visualized common femoral vein, superficial femoral vein, profunda femoral vein, popliteal vein, and the trifurcation region shows no evidence of deep venous thrombosis. A probable small anechoic left popliteal cyst measures approximately 2.5 x 0.3 x 2.1 cm. Color Doppler showed no abnormal vascular flow. The subcutaneous soft tissues are unremarkable. If the patient's symptoms persist, followup ultrasound in 5 days 7 days might be of value to exclude proximal propagation from a non-visualized calf vein. US/US venous duplex LE IMPRESSION: 1. No evidence for deep venous thrombosis in the visualized veins of the left lower extremity. 2. Probable small left popliteal cyst.
--- NOTE | ~2023-04-11 | US_ITS ---
EXAMINATION: NONINVASIVE ASSESSMENT OF THE ARTERIES OF BOTH LOWER EXTREMITIES INCLUDING BILATERAL LOWER EXTREMITY DUPLEX. CLINICAL INFORMATION: Grayscale, pain, decreased pulses COMPARISON: None TECHNIQUE: duplex Doppler techniques with wave form analysis and measurement of velocities in the left common femoral, profunda femoral, superficial femoral, popliteal, tibial and peroneal arteries. The study was performed only at rest. FINDINGS: There is atherosclerotic disease. LEFT LEG: Common femoral artery: 109 cm/s, Multiphasic Profunda femoris artery: 73 cm/s, Multiphasic Superficial femoral artery (proximal): 101 cm/s, Multiphasic Superficial femoral artery (mid): 75 cm/s, Multiphasic Superficial femoral artery (distal): 63 cm/s, Multiphasic Proximal Popliteal artery: 73 cm/s, Multiphasic Mid posterior tibial artery: 55 cm/s, Multiphasic US/US arterial duplex LE LT IMPRESSION: No hemodynamically significant stenosis in the left lower extremity.
[2023-04-11 08:05] VITALS: BP 115/74; PULSE 74; RESP 16; TEMP 36.7; O2SAT 99; BMI 24.1
--- NOTE | 2023-04-11 09:05 | ED_ITS ---
HPI - Extremity Injury (Lower) General Chief Complaint: Extremity Injury, Lower Stated Complaint: left leg pain Time Seen by Provider: 04/11/23 09:04 Source: patient, RN notes reviewed and old records reviewed Mode of arrival: ambulatory History of Present Illness HPI Narrative: 82-year-old male with a past medical history of osteoarthritis, HLD, BPPV, presenting to the ED complaining of left lower extremity pain x months worsening over the past week. Admits was seen by his PCP at the [facility] & told he has poor circulation in his leg and was going to be referred for ultrasound. Admits to intermittent left foot erythema and looking pale. Denies pain being worse with exertion, fever/chills, injury, numbness, tingling, weakness, history of clots. Denies taking AC Related Data Home Medications Medication Instructions Recorded Confirmed iron 18 mg tablet 18 mg PO DAILY 05/11/21 01/23/22 [id number]-sgx-tsura acid-vit 1 tab PO DAILY 05/11/21 01/23/22 K-lycop 400 mcg-20 mcg-370 mcg tablet (One-A-Day Men's 50 Plus (with vitamin K)) Previous Rx's Medication Instructions Recorded amoxicillin 500 mg tablet 2,000 mg PO ONCE 1 day #4 tabs 12/24/22 Allergies Allergy/AdvReac Type Severity Reaction Status Date / Time naproxen [Aleve] Allergy Unknown nausea and Verified 04/11/23 08:09 vomiting Review of Systems Review of Systems: Constitutional: No Fever, No Chills ENT/Mouth: No Ear Pain, No Nasal Congestion, No sore throat, No Rhinorrhea, No Swallowing Difficulty Cardiovascular: No Chest Pain, No SOB Respiratory: No Cough, No Sputum Gastrointestinal: No Nausea, No Vomiting, No Abdominal pain Genitourinary: No Dysuria, No Urinary Frequency, No Flank Pain Musculoskeletal: + joint pain, No Myalgias, No Joint Swelling, +intermittent pale LLE Skin: No Skin Lesions, No rash Neuro: No Weakness, No Numbness, No Paresthesias Yes all other systems are reviewed and are negative Constitutional: Constitutional: Reports as per [facility] Past Medical History Attestation statement: The following information was validated with the patient. Source: old records reviewed Medical History Ganglion cyst of wrist Osteoarthritis of right knee Primary osteoarthritis of right knee Surgical History H/O wrist surgery History of blepharoplasty History of inguinal hernia repair History of knee replacement procedure of left knee History of knee replacement procedure of right knee History of lumbar surgery Hx of colonoscopy Status post total left knee replacement (~06/27/20) Family History Family History Father No problems noted. Mother Diabetes Social History Social History Housing: House Are you a primary post acute care nurse practitioner to a significant other at home: No Do you presently have visiting nurse or other home services: No Alcohol intake: current Alcohol intake frequency: does not drink Patient Tobacco Use Status: Former Tobacco user Quit Date: 1966 Tobacco use type: Cigarette Years Smoked: quit 26 years old Smoked in Last 30 Days: No e-Cigarette/Vaping Use: Never Used Second Hand Smoke Exposure: No Use of substances other than those prescribed or required for medical reasons: No Advance Directives: Yes Advance Directives on File: Yes Advance Directives Date on File: 07/27/20 service: Yes Current occupational status: retired Current occupation: Right Handed Cognitive needs: No Hearing needs: No Vision needs: Yes Physical Exam Vital Signs: Vital Signs: Last Vital Signs Temp 98.1 F 04/11/23 08:05 Pulse 65 04/11/23 09:13 Resp 18 04/11/23 09:13 BP 138/74 04/11/23 09:13 Pulse Ox 99 04/11/23 08:05 O2 Del Method Room Air 04/11/23 08:05 BMI result Body Mass Index 24.1 Const: General: cooperative, healthy appearing, no acute distress, alert and awake Orientation/consciousness: patient oriented x3 Limitations: no limitations HEENT: Head: Yes normal to inspection and Yes atraumatic Ears: hearing grossly normal bilaterally General nose exam: Normal external nose present Face and sinus: Yes normal facial exam Eyes: General: appearance normal, both eyes and all related structures EOM: EOMs intact bilaterally Neck: Neck: Yes normal visual inspection and Yes no meningeal signs Resp: Effort & Inspection: normal respiratory effort and no respiratory distress Cardio: Rate: regular rate Heart sounds: S1 normal heart sound present and S2 normal heart sound present Peripheral pulses: posterior tibial pulses present on the left (Decreased compared to right) and dorsalis pedis present on the left (Decreased compared to right) GI: Inspection: Yes normal to inspection Skin: Rashes: no rashes Wounds: no wounds Neuro: General: patient oriented x3, tone normal and no meningeal signs Gait exam (Neuro): Normal gait present Extrem: Other: Left lower extremity pink, warm, no mottling, not pale, cap refill WNL, no josue ing edema General: Yes normal to inspection Course Course Course Narrative: US venous duplex LE LT IMPRESSION: 1.? No evidence for deep venous thrombosis in the visualized veins of the left lower extremity. 2.? Probable small left popliteal cyst. 1207--US arterial duplex LE LT IMPRESSION: No hemodynamically significant stenosis in the left lower extremity. Results discussed with patient including worrisome signs and symptoms and strict return precautions, and when to return to the emergency department. They verbalized understanding and feel safe for discharge at this time. Medical Decision Making Medical Decision Making MDM Narrative: 82-year-old male with a past medical history of osteoarthritis, HLD, BPPV, presenting to the ED complaining of left lower extremity pain x months worsening over the past week. On exam vital signs stable, NAD, nontoxic appearing, physical exam as above. Left lower extremity without appreciable edema, erythema/warmth, paleness or pallor. Distal pulses intact, slightly decreased from contralateral side. Concern for PAD vs possible DVT. Lower suspicion for cellulitis, fracture, CHF Plan: Arterial and venous duplex ultrasound Please refer to course for remaining clinical decision making, interpretation of labs/imaging results, and discussions with consultants and/or family members. Differential Diagnosis Differential Diagnoses: The differential diagnosis associated with the presentation includes As above Admission/Observation Consideration of admission/observation: Escalation of care including admission/observation considered Independent Interpretation I performed an independent interpretation of an: Ultrasound Radiology Impression Discussion of test interpretation with radiology: I have reviewed the radiologist's reading. External Record Review External record reviewed: Inpatient record, Office record, Outpatient record, Prior outpatient labs, Prior outpatient radiology, Primary care record and Outside ED record Tests considered The following testing was considered but not selected: Labs considered although not needed at this time Discharge Plan Discharge Clinical Impression: Pain in left lower leg Patient Disposition: Home, Self-Care Instructions: Leg Pain (ED) Additional Instructions: Your ultrasounds do not show any evidence of a blood clot or significant stenosis in your extremity Please close follow-up with your doctor If symptoms persist or worsen you develop constant/unbearable pain, swelling, redness, fever, or weakness return to the ED Prescriptions: No Action amoxicillin 500 mg tablet 2,000 mg PO ONCE 1 Days Qty: 4 3RF Rx Instructions: take 4 capsules 1 hr prior to dental procedure iron 18 mg Tablet 18 mg PO DAILY Patient Comments: takes in liquid form One-A-Day Men's 50 Plus(vit K) 400-20-370 mcg Tablet 1 tab PO DAILY Referrals: [facility] [Provider Group] Po,Maribell Stein MD [Primary Care Provider] - Interventions: ED Discharge Assessment Last Done: 04/11/23 12:16 Discharge Date/Time: 04/11/23 12:16
[2023-04-11 09:13] VITALS: BP 138/74; PULSE 65; RESP 18
== END 2023-04-11 12:16 | disposition home or self-care (01) ==
PROVIDERS: Emergency Provider Emergency Medicine; PCP Internal Medicine
DX: M79.605 Pain in left leg (principal); R60.0 Localized edema
CPT/HCPCS: 93926; 93971; 99284

== ENCOUNTER 2023-06-04 09:10 | Outpatient (AMB) | payer OTHER, MEDICARE, SELFPAY ==
[2023-06-04 09:10] VITALS: BP 138/80; PULSE 71; O2SAT 96; BMI 24.1
--- NOTE | 2023-06-04 09:10 | A.OFFVIS_ITS ---
Intake Vital Signs 06/04/23 09:10 Height 5 ft 5 in Weight 145 lb BMI 24.1 BP 138/80 Blood Pressure Location Lt brachial Position Sitting Pulse 71 Pulse Source Pulse Oximeter Pulse Oximetry (%) 96 Oxygen Delivery Method Room Air Intake Visit Reasons: ED referral PVD Intake Note: Pt presents to the office today for a ED referral for PVD. Pt states that his left is feeling better since his ER visit. He states he has tingling in his lower left leg but denies numbness and swelling in his left leg.Pt states he has no concerns with his right leg. Pt states the tingling occurs after he sits for a while but it doesn't happen everytime. He does not wear compression stockings. Allergies naproxen [Aleve] Allergy (Unknown, Verified 06/04/23 09:10) nausea and vomiting HPI ED referral PVD HPI Details Very pleasant 82-year-old gentleman presents for evaluation regarding his lower extremities. He had actually received in insurance well check where they did a home portable STERLING which was done on 03/11/2023. STERLING at that time on the left was noted to be 0.22 and on the right of 1.09. The became extremely concerned about his left lower extremity. He got to the point where he developed some leg cramps and went to the emergency room. He underwent left lower extremity arterial ultrasound. He now presents to us for vascular evaluation. Of note he has had bilateral knee replacements. In addition upon discussion with him he is very active and actually walks to and 1/2 miles 4 times a week. [facility] Medical History Ganglion cyst of wrist Osteoarthritis of right knee Primary osteoarthritis of right knee Surgical History H/O wrist surgery History of blepharoplasty History of inguinal hernia repair History of knee replacement procedure of left knee History of knee replacement procedure of right knee History of lumbar surgery Hx of colonoscopy Status post total left knee replacement (~06/27/20) Family History Father No problems noted. Mother Diabetes Social History Housing: House Are you a primary chronic care nurse to a significant other at home: No Do you presently have visiting nurse or other home services: No Alcohol intake: current Alcohol intake frequency: does not drink Patient Tobacco Use Status: Former Tobacco user Quit Date: 1966 Tobacco use type: Cigarette Years Smoked: quit 26 years old e-Cigarette/Vaping Use: Never Used Second Hand Smoke Exposure: No Advance Directives Date on File: 07/27/20 service: Yes Current occupational status: retired Current occupation: Right Handed Cognitive needs: No Hearing needs: No Vision needs: Yes Review of Systems Const All systems reviewed & are unremarkable except as noted in HPI and below Reports no additional complaints ENT Reports Normal hearing present Card Denies chest pain, Denies chest pain at rest, Denies chest pain with activity and Denies pedal edema Resp Denies cough GI Denies abdominal pain Musc Denies abnormal gait, Denies muscle cramps and Denies radiating pain into limb Skin/Breast Denies skin ulcer and Denies wounds Neuro Reports Normal hearing present and Denies abnormal gait Psych Reports no additional complaints Physical Exam Vital Signs: Last Vital Signs Pulse 71 06/04/23 09:10 BP 138/80 06/04/23 09:10 Pulse Ox 96 06/04/23 09:10 Oxygen Delivery Method Room Air 06/04/23 09:10 BMI result Body Mass Index 24.1 Const General: cooperative, healthy appearing and comfortable Orientation/consciousness: oriented to person, oriented to place and oriented to time HEENT Head: Yes normal to inspection Neck Neck: Yes normal visual inspection Carotids: no bruits Chest Chest palpation & inspection: normal inspection of the chest Resp Effort & Inspection: normal respiratory effort and able to speak in complete sentences Auscultation: clear to auscultation bilaterally, no crackles, no rales, no rhonchi and no wheezes Cardio Rate: regular rate Rhythm: regular rhythm Heart sounds: S1 normal heart sound present and S2 normal heart sound present Bruits: no carotid bruits Peripheral pulses: Peripheral pulses 2+ throughout GI Inspection: Yes normal to inspection Skin Wounds: no wounds Hair: normal Neuro General: oriented to person, oriented to place and oriented to time Cranial nerves: Yes CN's II-XII intact bilaterally and Yes Normal hearing present Cognition (Neuro): normal cognition Motor exam (neuro): 5/5 motor strength present throughout Extrem Other: venous exam: No significant superficial varicosities or spider telangiectasias, minimal edema General: No clubbing, No cyanosis and No edema Psych Appearance: grossly normal Mental Status: mental status grossly normal Speech and movement: Normal speech and movement present Results Reviewed Results Reviewed: Noninvasive arterial testing dated 04/11/2023 was negative for any significant hemodynamic stenosis of the left lower extremity. Written report and images were reviewed. Assessment & Plan Assessment & Plan (1) PAD (peripheral artery disease): Code(s): I73.9 - Peripheral vascular disease, unspecified Plan: In short the patient is negative for any significant PA D. Our ultrasound along with palpable arterial pulses bilaterally DP does not indicate any significant arterial disease. In addition he is quite an active healthy gentleman. I do believe that the insurance read was a false-positive. Thigh did discuss the pathophysiology and did reassure him that he did not have any significant arterial disease. We did go over risk factor modification and the importance of exercise. He will follow up with us on an as-needed basis. Thank you for allowing us to assist in his care. If there are any questions or concerns please do not hesitate to contact us. Coding Level of Care Code New Pt Level 4 (28522) Diagnoses PAD (peripheral artery disease) I73.9
== END 2023-06-04 09:36 | disposition home or self-care (01) ==
PROVIDERS: PCP Internal Medicine; Visit Provider Surgery Vascular Surgery
DX: R20.2 Paresthesia of skin (principal)
CPT/HCPCS: 99203

== ENCOUNTER → 2023-06-04 09:10 | Outpatient (BNVA) | payer OTHER, MEDICARE, SELFPAY | PROVIDERS: PCP Internal Medicine; Visit Provider Surgery Vascular Surgery | DX: I73.9 Peripheral vascular disease, unspecified (principal) | CPT/HCPCS: 99202 ==

== ENCOUNTER 2023-06-13 07:01 | Outpatient (REF) | payer MEDICARE, SELFPAY ==
[2023-06-13 07:11] LABS: MANUAL DIFF FLAG NO
[2023-06-13 08:02] LABS: Basophils Percent Auto 0.6 % (0-2); Eosinophils Absolute Auto 0.1 X10*3/uL (0.0-0.4); Eosinophils Percent Auto 1.3 % (0-4); Hematocrit 43.5 % (42.0-52.0); Hemoglobin 14.8 g/dl (14.0-18.0); Imm Gran Abs Auto 0.02 X10*3/uL (0.00-0.03); Imm Gran Pct Auto 0.3 % (0.0-0.4); Lymphocytes Absolute Auto 1.5 X10*3/uL (1.2-4.9); Lymphocytes Percent Auto 24.6 % (20-40); Mean Corpuscular Hemoglobin 33.4 pg (27.0-33.0); Mean Corpuscular Volume 98.2 fL (80.0-98.0); Monocytes Absolute Auto 0.5 X10*3/uL (0.1-1.2); Monocytes Percent Auto 7.2 % (2-11); Neutrophils Absolute Auto 4.1 x10*3/uL (2.0-8.3); Platelet Count 240 X10*3/uL (160-400); Red Blood Count 4.43 X10*6/uL (4.60-5.80); Red Cell Distribution Width 12.8 % (11.0-16.0); White Blood Count 6.2 X10*3/uL (4.8-10.8)
[2023-06-13 09:37] LABS: Alanine Aminotransferase 19 U/L (0-40); Albumin Level 4.1 g/dL (3.5-5.0); Alkaline Phosphatase 60 U/L (39-117); Anion Gap 10 (12-20); Aspartate Amino Transferase 23 U/L (5-37); Bilirubin Total 0.7 mg/dL (0.0-1.0); Blood Urea Nitrogen 18 mg/dL (9-16); Calcium 9.5 mg/dL (8.4-10.2); Carbon Dioxide 28 mmol/L (22-29); Chloride 106 mmol/L (96-108); Cholesterol 142 mg/dL (<200); Estimated Glomerular Filt Rate > 60; Glucose Random 82 mg/dL (60-115); HDL Cholesterol 36 mg/dL (>40); LDL Cholesterol Calculated 79 mg/dL (<100); Potassium 4.4 mmol/L (3.3-5.1); Sodium 140 mmol/L (135-145); Total Protein 7.3 g/dL (6.5-8.0); Triglycerides 137 mg/dL (<150)
[2023-06-13 09:52] LABS: Free T4 (Free Thyroxine) 0.95 ng/dL (0.71-1.85); Thyroid Stimulating Hormone 2.64 uIU/mL (0.32-4.0)
[2023-06-13 10:08] LABS: Folate 12.7 ng/mL (> or = 4.0); Vitamin B12 1276 pg/mL (200-900)
== END 2023-06-13 07:02 | disposition home or self-care (01) ==
LOC: HO.LAB 07:01
PROVIDERS: PCP Internal Medicine; Visit Provider Internal Medicine
DX: E78.00 Pure hypercholesterolemia, unspecified (principal)
CPT/HCPCS: 36415; 80053; 80061; 82607; 82746; 84439; 84443; 85025

== ENCOUNTER 2023-06-20 09:54 | Outpatient (AMB) | payer MEDICARE, SELFPAY ==
--- NOTE | 2023-06-20 10:01 | A.OFFPC_ITS ---
Vital Signs 06/20/23 10:14 Height 5 ft 5 in Weight 1432 lb BMI 238.3 BP 100/70 Blood Pressure Location Lt brachial Position Sitting Pulse 59 Pulse Source Pulse Oximeter Pulse Oximetry (%) 94 Oxygen Delivery Method Room Air Intake Visit Reasons: PE Intake Note: Patient is here today for a physical. Fur Stretcher Required: No Administrative Operations Coordinator: Not Required per policy Accompanied by: Self / Same As Patient Allergies naproxen [Aleve] Allergy (Unknown, Verified 06/20/23 10:02) nausea and vomiting Tobacco use date assessed: 06/20/23 Fall risk assessment: No Falls in past year Last assessed Fall Risk: 06/20/23 HPI HPI Comments History of Present Illness Details 82-year-old male past medical history si gnificant for PAD, BPPV, hypercholesteremia. Patient of Dr. Jacinto presents today for physical exam. Review of the notes patient insurance company ultrasound completed suggest PAD, patient subsequently went to the emergency room for leg cramping venous Duplex scan unremarkable. Patient was seen by Dr. Rey vascular surgery stating patient is negative for any significant PAD, patient has palpable bilateral pedal pulses and ultrasound unremarkable. Believes insurance read was false positive. Complete blood work reviewed with patient in office. Eye exam: September 2022 Immunizations: [facility] Medical History (Updated 06/20/23 @ 10:50 by MINI Chaidez) PAD (peripheral artery disease) Primary osteoarthritis of right knee Osteoarthritis of right knee Ganglion cyst of wrist Surgical History History of knee replacement procedure of left knee History of knee replacement procedure of right knee Hx of colonoscopy History of blepharoplasty History of lumbar surgery H/O wrist surgery History of inguinal hernia repair Status post total left knee replacement (~06/27/20) Family History Father No problems noted. Mother Diabetes Social History Housing: House Are you a primary career based intervention coordinator to a significant other at home: No Do you presently have visiting nurse or other home services: No Alcohol intake: current Alcohol intake frequency: does not drink Patient Tobacco Use Status: Former Tobacco user Quit Date: 1964 Tobacco use type: Cigarette Years Smoked: quit 26 years old e-Cigarette/Vaping Use: Never Used Second Hand Smoke Exposure: No Advance Directives Date on File: 07/27/20 service: Yes Current occupational status: retired Current occupation: Right Handed Cognitive needs: No Hearing needs: No Vision needs: Yes Questionnaire Thrive Questionnaire Date Thrive assessed: 01/23/22 MAYRA-7 AMB Questionnaire MAYRA-7 Date MAYRA - 7 assessed: 01/23/22 Source: Developed by Drs. Roni Amaya, Maricruz Farah, Denzel Easton and colleagues, with an educational keri from [employer]. Review of Systems Const Denies chills, Denies fatigue, Denies fever(s) and Denies poor appetite Eyes Denies no additional complaints ENT Reports Normal hearing present Card Denies chest pain, Denies syncope, Denies rapid heart rate and Denies dyspnea Resp Denies cough and Denies dyspnea GI Denies change in stool character, Denies constipation, Denies diarrhea, Denies nausea and Denies vomiting Denies dysuria, Denies urinary frequency and Denies urinary urgency Neuro Reports Normal hearing present, Denies confusion and Denies syncope Psych Denies confusion Endo Denies fatigue Physical exam (Primary Care) Vital Signs: Last Vital Signs Pulse 59 06/20/23 10:14 BP 100/70 06/20/23 10:14 Pulse Ox 94 06/20/23 10:14 Oxygen Delivery Method Room Air 06/20/23 10:14 BMI result Body Mass Index 238.3 Tobacco/Smoking Status: Tobacco use Status Tobacco use date assessed 06/20/23 06/20/23 10:03 Patient Tobacco Use Status Former Tobacco user 06/20/23 10:01 Tobacco use type Cigarette 06/20/23 10:01 e-Cigarette/Vaping Use Never Used 06/20/23 10:01 Thrive Assessment: Date of Thrive Assessment Date Thrive assessed 01/23/22 06/20/23 10:01 Const General: No confusion Orientation/consciousness: No confusion HENMT Head: Yes normocephalic and Yes atraumatic Ears: external ears normal and TM's normal bilaterally General nose exam: Normal external nose present and Normal nasal mucous membranes and turbinates present Face and sinus: Yes normal facial exam and Yes sinuses nontender Mouth: moist mucous membranes Throat: Yes tonsils normal Eyes Conjunctivae: conjunctivae normal Sclerae: sclerae normal Pupils: Equal, round and reactive pupils present and Pupils normal by confrontation EOM: EOMs intact bilaterally Direct Ophthalmoscopy: normal light reflex Neck Neck: Yes no lymphadenopathy and Yes supple Thyroid: Thyroid normal Chest Chest palpation & inspection: normal inspection of the chest Resp Effort & Inspection: normal respiratory effort Auscultation: clear to auscultation bilaterally, no crackles, no rhonchi and no wheezes Cardio Rate: regular rate Rhythm: regular rhythm Peripheral pulses: radial pulses present and dorsalis pedis present GI Inspection: Yes normal to inspection Palpation (GI): Soft to palpation, nontender and No hepatosplenomegaly present Auscultation: normoactive bowel sounds Skin General skin exam: no rashes or lesions noted Neuro General: No confusion Cranial nerves: Yes Equal, round and reactive pupils present and Yes Normal hearing present Cognition (Neuro): normal cognition Gait exam (Neuro): Normal gait present Motor exam (neuro): 5/5 motor strength present throughout Deep tendon reflexes (DTR's): Right brachioradialis reflex intensity grade: 2+, Left brachioradialis reflex intensity grade: 2+, Right patellar reflex intensity grade: 2+ and Left patellar reflex intensity grade: 2+ Extrem General: No edema Assessment and Plan Assessment & Plan (1) Hypercholesterolemia: Code(s): E78.00 - Pure hypercholesterolemia, unspecified Plan: Avoid fried foods, chicken skin, eggs, butter,margarine, pastries and? red meat. LDL: 73 (2) Annual physical exam: Code(s): Z00.00 - Encounter for general adult medical examination without abnormal findings Plan: Follow-up in 1 year Plan Follow-up in 1 year sooner needed. Coding Level of Care Code Est Pt Prev Care >65y(02331) Diagnoses Hypercholesterolemia E78.00 Annual physical exam Z00.00
[2023-06-20 10:14] VITALS: BP 100/70; PULSE 59; O2SAT 94; BMI 238.3
== END 2023-06-20 10:49 | disposition home or self-care (01) ==
PROVIDERS: PCP Internal Medicine; Visit Provider Nurse Practitioner Family
DX: E78.00 Pure hypercholesterolemia, unspecified (principal); Z00.00 Encounter for general adult medical examination without abnormal findings
CPT/HCPCS: 99397

== ENCOUNTER 2024-06-11 06:35 | Outpatient (REF) | payer MEDICARE, SELFPAY ==
[2024-06-11 06:48] LABS: MANUAL DIFF FLAG NO
[2024-06-11 07:47] LABS: Basophils Percent Auto 0.7 % (0-2); Eosinophils Absolute Auto 0.1 X10*3/uL (0.0-0.4); Eosinophils Percent Auto 1.5 % (0-4); Hematocrit 42.2 % (42.0-52.0); Hemoglobin 14.5 g/dl (14.0-18.0); Imm Gran Abs Auto 0.01 X10*3/uL (0.00-0.03); Imm Gran Pct Auto 0.2 % (0.0-0.4); Lymphocytes Absolute Auto 1.4 X10*3/uL (1.2-4.9); Mean Corpuscular HGB Conc 34.4 g/dl (31.0-36.0); Mean Corpuscular Hemoglobin 33.3 pg (27.0-33.0); Mean Platelet Volume 9.9 fL (9.4-12.4); Monocytes Absolute Auto 0.5 X10*3/uL (0.1-1.2); Monocytes Percent Auto 8.8 % (2-11); Neutrophils Absolute Auto 3.5 x10*3/uL (2.0-8.3); Neutrophils Percent Auto 63.8 % (45-73); Platelet Count 195 X10*3/uL (160-400); Red Blood Count 4.35 X10*6/uL (4.60-5.80); Red Cell Distribution Width 13.2 % (11.0-16.0); White Blood Count 5.5 X10*3/uL (4.8-10.8)
[2024-06-11 08:28] LABS: Alanine Aminotransferase 22 U/L (0-40); Alkaline Phosphatase 65 U/L (39-117); Anion Gap 10 (12-20); Aspartate Amino Transferase 25 U/L (5-37); Bilirubin Total 0.6 mg/dL (0.0-1.0); Blood Urea Nitrogen 9 mg/dL (9-16); Calcium 9.2 mg/dL (8.4-10.2); Carbon Dioxide 27 mmol/L (22-29); Chloride 106 mmol/L (96-108); Cholesterol 151 mg/dL (<200); Estimated Glomerular Filt Rate > 60; Glucose Random 84 mg/dL (60-115); HDL Cholesterol 39 mg/dL (>40); LDL Cholesterol Calculated 89 mg/dL (<100); Potassium 4.2 mmol/L (3.3-5.1); Sodium 139 mmol/L (135-145); Triglycerides 115 mg/dL (<150)
[2024-06-11 08:49] LABS: Free T4 (Free Thyroxine) 0.86 ng/dL (0.71-1.85); Thyroid Stimulating Hormone 3.28 uIU/mL (0.32-4.0)
[2024-06-11 08:50] LABS: Folate 12.7 ng/mL (> or = 4.0); Vitamin B12 1150 pg/mL (200-900)
== END 2024-06-11 06:36 | disposition home or self-care (01) ==
LOC: HO.LAB 06:35
PROVIDERS: PCP Internal Medicine; Visit Provider Internal Medicine
DX: E78.00 Pure hypercholesterolemia, unspecified (principal)
CPT/HCPCS: 36415; 80053; 80061; 82607; 82746; 84439; 84443; 85025

== ENCOUNTER 2024-06-22 08:45 | Outpatient (AMB) | payer MEDICARE, SELFPAY ==
[2024-06-22 08:50] VITALS: BP 110/62; PULSE 63; O2SAT 97; BMI 24.0
--- NOTE | 2024-06-22 08:50 | A.OFFPC_ITS ---
Vital Signs 06/22/24 08:50 Height 5 ft 5 in Weight 144 lb BMI 24.0 BP 110/62 Blood Pressure Location Lt brachial Position Sitting Pulse 63 Pulse Source Pulse Oximeter Pulse Oximetry (%) 97 Oxygen Delivery Method Room Air Intake Visit Reasons: pe Manager Post Required: No Accompanied by: Self / Same As Patient Allergies naproxen [Aleve] Allergy (Unknown, Verified 06/22/24 08:51) nausea and vomiting Medication List - Last Reconciled 06/22/24 by Maribell Jacinto MD calcium carb,lactat-vitamin D3 200 mg-6.25 mcg (250 unit) tabs PO BID yxwryrhf-wdb-tlnxd-vit K-lycop 400-20-370 mcg (One-A-Day Men's 50 Plus (with vitamin K)) 1 tab PO DAILY Tobacco use date assessed: 06/22/24 Fall risk assessment: No Falls in past year Last assessed Fall Risk: 06/22/24 Dental Screening Dental Screen Date: 06/22/24 Did you have a dental visit in the last 12 months?: Yes Did you have a dental problem in the last 6 months where you did not have access to dental care?: No Was dental information given to patient?: Patient has dentist HPI pe HPI Details 83-year-old male with hypercholesterolem ia coming in for physical exam last seen last year. complains of having winter PFSH Medical History (Updated 06/22/24 @ 09:20 by Maribell Jacinto MD) PAD (peripheral artery disease) Primary osteoarthritis of right knee Osteoarthritis of right knee Ganglion cyst of wrist Surgical History History of knee replacement procedure of left knee History of knee replacement procedure of right knee Hx of colonoscopy History of blepharoplasty History of lumbar surgery H/O wrist surgery History of inguinal hernia repair Status post total left knee replacement (~06/27/20) Family History Father No problems noted. Mother Diabetes Social History (Updated 06/22/24 @ 09:01 by Maribell Jacinto MD) Housing: House Are you a primary acute care surgeon to a significant other at home: No Do you presently have visiting nurse or other home services: No Alcohol intake: never Patient Tobacco Use Status: Former Tobacco user Tobacco use type: Cigarette Years Smoked: quit 26 years old e-Cigarette/Vaping Use: Never Used Second Hand Smoke Exposure: No Advance Directives Date on File: 07/27/20 service: Yes Current occupational status: retired Current occupation: Right Handed Cognitive needs: No Hearing needs: No Vision needs: Yes Questionnaire PHQ-9 Over the last 2 weeks, how often have you been bothered by any of the following problems? 1. Little interest or pleasure in doing things: not at all 2. Feeling down, depressed, or hopeless: not at all 3. Trouble falling or staying asleep, or sleeping too much: not at all 4. Feeling tired or having little energy: not at all 5. Poor appetite or overeating: not at all 6. Feeling bad about yourself - or that you are a failure or have let yourself or your family down: not at all 7. Trouble concentrating on things, such as reading the newspaper or watching television: not at all 8. Moving or speaking so slowly that other people could have noticed. Or the opposite - being so fidgety or restless that you have been moving around a lot more than usual: not at all 9. Thoughts that you would be better off or of hurting yourself in some way: not at all Total score: 0 Source: Developed by Drs. Roni Amaya, Maricruz Farah, Denzel Easton and colleagues, with an educational keri from [employer]. Thrive Questionnaire Date Thrive assessed: 06/22/24 I am a: Patient What is your living situation today?: I have a steady place to live Within the past 12 months, did the food you bought not last and you didn't have the money to get more?: Never true Within the past 12 months, did you worry whether your food would run out before you got money to buy more?: Never true Do you have trouble paying for medicines?: No Do you have trouble getting transportation to medical appointments?: No Do you have trouble paying your heating and electricity bill?: No Do you have trouble taking care of your child, family member or friend?: No Do you have trouble with day-to-day activities such as bathing, preparing meals, shopping, managing finances, etc.?: No Are you currently unemployed and looking for a job?: No Are you interested in more education?: No Please select the resources that you would like help with: None Currently or been in a relationship where the following occur: I choose not to answer THRIVE Score: 0 AUDIT C Alcohol Use Questionnaire (AUDIT-C) 1. How often do you have a drink containing alcohol?: Never Total Score: 0 MAYRA-7 AMB Questionnaire MAYRA-7 Date MAYRA - 7 assessed: 06/22/24 Feeling nervous, anxious, or on edge: 0 = Not at all Not being able to stop or control worryin = Not at all Worrying too much about different things: 0 = Not at all Trouble relaxin = Not at all Being so restless that it is hard to sit still: 0 = Not at all Becoming easily annoyed or irritable: 0 = Not at all Feeling afraid as if something awful might happen: 0 = Not at all Total MAYRA-7 score (0-4 normal; 5-9 mild; 10-14 moderate; 15-21 severe): 0 Source: Developed by Drs. Roni Amaya, Maricruz Farah, Denzel Easton and colleagues, with an educational keri from [employer]. Review of Systems Const Denies poor appetite and Denies weakness Eyes Denies no additional complaints ENT Reports Normal hearing present, Denies dizziness, Denies nasal congestion, Denies tinnitus and Denies sore throat Card Denies chest pain, Denies syncope, Denies rapid heart rate and Denies dyspnea Resp Denies cough and Denies dyspnea GI Denies change in stool character, Reports constipation, Denies diarrhea, Denies nausea and Denies vomiting Denies dysuria and Denies urinary frequency Neuro Reports Normal hearing present, Denies confusion, Denies dizziness, Denies syncope and Denies weakness Psych Denies confusion Physical exam (Primary Care) Vital Signs: Oxygen Delivery Method Room Air 06/22/24 08:50 BMI result Body Mass Index 24.0 Tobacco/Smoking Status: Tobacco use Status Tobacco use date assessed 06/20/23 06/20/23 10:03 Patient Tobacco Use Status Former Tobacco user 06/20/23 10:01 Tobacco use type Cigarette 06/20/23 10:01 e-Cigarette/Vaping Use Never Used 06/20/23 10:01 Thrive Assessment: Date of Thrive Assessment Date Thrive assessed 01/23/22 06/20/23 10:01 Currently or been in a relationship where the following occur: I choose not to answer Const General: No confusion Orientation/consciousness: No confusion HENMT Head: Yes normocephalic Ears: external ears normal and TM's normal bilaterally Face and sinus: Yes normal facial exam Mouth: moist mucous membranes Throat: Yes tonsils normal Eyes Conjunctivae: conjunctivae normal Pupils: Equal, round and reactive pupils present and Pupil accommodation reflex normal Direct Ophthalmoscopy: normal light reflex Neck Neck: No lymphadenopathy Thyroid: Thyroid normal Chest Chest palpation & inspection: normal inspection of the chest Resp Effort & Inspection: normal respiratory effort and no audible wheezes Auscultation: clear to auscultation bilaterally, no crackles, no wheezes and lung sounds not diminished Cardio Rate: regular rate Rhythm: regular rhythm Peripheral pulses: radial pulses present and dorsalis pedis present GI Other: guaiac negative pedal pulse weak but equal , prostate N Palpation (GI): no masses Auscultation: normal bowel sounds and normoactive bowel sounds Skin General skin exam: no rashes or lesions noted Rashes: no rashes Neuro General: No confusion Cranial nerves: Yes Equal, round and reactive pupils present and Yes Normal hearing present Cognition (Neuro): normal cognition Gait exam (Neuro): Normal gait present Motor exam (neuro): 5/5 motor strength present throughout Deep tendon reflexes (DTR's): Right brachioradialis reflex intensity grade: 2+, Left brachioradialis reflex intensity grade: 2+, Right patellar reflex intensity grade: 2+ and Left patellar reflex intensity grade: 2+ Extrem General: No edema Assessment and Plan Assessment & Plan (1) Annual physical exam: Code(s): Z00.00 - Encounter for general adult medical examination without abnormal findings Plan: Patient is advised to eat healthy, keep well hydrated, keep active and have adequate sleep. (2) Hypercholesterolemia: Code(s): E78.00 - Pure hypercholesterolemia, unspecified Plan: Avoid fried foods, chicken skin, eggs, butter margarine, pastries and meat. Be it pork or beef they have a lot of cholesterol LDL goal of less than 130 and triglyceride of less than 150 (3) Atherosclerosis of arteries: Code(s): I70.90 - Unspecified atherosclerosis Orders: Orders Lipid Panel 3 Months E78.00 - Pure hypercholesterolemia, unspecified, I70.90 - Unspecified atherosclerosis Comprehensive Met. Panel 3 Months I70.90 - Unspecified atherosclerosis Medications: New simvastatin 5 mg PO BEDTIME 30 tabs 4RF I70.90 - Unspecified atherosclerosis Coding Level of Care Code Est Pt Prev Care >65y(35437) Diagnoses Annual physical exam Z00.00 Hypercholesterolemia E78.00 Atherosclerosis of arteries I70.90
== END 2024-06-22 09:29 | disposition home or self-care (01) ==
PROVIDERS: PCP Internal Medicine; Visit Provider Internal Medicine
DX: Z00.00 Encounter for general adult medical examination without abnormal findings (principal); E78.00 Pure hypercholesterolemia, unspecified; I70.90 Unspecified atherosclerosis
CPT/HCPCS: 99397

== ENCOUNTER 2024-10-09 06:38 | Outpatient (REF) | payer MEDICARE, SELFPAY ==
--- OUTSIDE RECORDS SUMMARY | 2024-10-09 06:41 | XMS_ITS | Encounter Summary ---
Author Name [facility] [place] [facility] [place] Address [address] [place] [id number] Care Team Providers Care Director Of Business Development Name Role Phone ANSLEY CONTRERAS Primary Care Provider Unava ilable Insurance Providers: All historical and current Section Date Range: From patient's date of to the date document was created. This section includes the names of all active insurance providers for the patient. Insurance Provider Type of Coverage Plan Name Start of Policy Coverage End of Policy Coverage Group Number Member ID Insurance Provider's Telephone Number Policy Cornelius's Name Patient's Relationship to Policy Cornelius [facility] ([facility]) MEDICARE ADVANTAGE MCR ([facility]) Oct 14, 2022 [id number] [phone] MINA REZA PATIENT [facility] ([facility]) MEDICARE ADVANTAGE MCR ([facility]) Oct 14, 2016 [id number] MINA REZA PATIENT [facility] ([facility]) MEDICARE ADVANTAGE MCR ([facility]) Oct 14, 2022 [id number] [phone] MINA REZA PATIENT Selected Encounter This section includes the information on record at [place] for the Encounter. Date/Time Encounter Type Encounter Description Reason Pro vider Source Sep 21, 2024 09:46 AM Outpatient Encounter PRIMARY CARE/MEDICINE IHE Encounter Template Text not used by [facility] Advance Directives: All historical and current Section Date Range: From patient's date of to the date document was created. This section includes ALL of a patient's completed or amended VA Advance and Rescinded Directives. The entries below indicate that a directive exists for the patient, but an actual copy is not included with this document. The data comes from all [place] facilities. Date Advance Directives Provider Source Mar 29, 2022 ADVANCE DIRECTIVE ERIC LAO Eulalia MARTINS [facility] Encounter Notes: All associated encounter notes This section contains the clinical notes associated to the Encounter. Date/Time Encounter Note(s) Provider Source Sep 21, 2024 09:46 AM PRIMARY CARE NOTE: LOCAL TITLE: WALK-IN NOTE PRIMARY CARE (T) STANDARD TITLE: PRIMARY CARE NOTE DATE OF NOTE: SEP 21, 2024@09:46 ENTRY DATE: SEP 21, 2024@09:46:24 AUTHOR: KAVITHA BOWER EXP COSIGNER: URGENCY: STATUS: COMPLETED <====Click to Start Advanced Medical Support presents to the Primary Care clinic with the following request: [ ]Medication Renewal/Refill [ ]Consultation with Team RN [ ]Symptoms [ X ]Other The [place] states they are: [ ]Waiting [ X ]Not Waiting No Walk in visit scheduled with PACT Nurse [ X ] At this encounter the [place]'s demographics were verified. [ X ] At this encounter the [place]'s Insurance information was verified. [ X ] At this encounter the below scheduled visits for the [place] were discussed and appointment reminder card was offered. Future appointments: 04/05/2025 10:00 CWM/SO/PACT 9 Vet requesting his medications be sent to [address] [id number] it is closer to home. /audrey/ KAVITHA MONTES Signed: 09/21/2024 09:47 KAVITHA BOWER [place]
--- OUTSIDE RECORDS SUMMARY | 2024-10-09 06:41 | XMS_ITS | Encounter Summary ---
Author Name [facility] [place] Address [address] [place] [address] Care Team Providers Care Forestry Fire Aid Name Role Phone ANSLEY CONTRERAS Primary Care Provider Unava ildevorah Insurance Providers: All historical and current Section Date Range: From patient's date of to the date document was created. This section includes the names of all active insurance providers for the patient. Insurance Provider Type of Coverage Plan Name Start of Policy Coverage End of Policy Coverage Group Number Member ID Insurance Provider's Telephone Number Policy Cornelius's Name Patient's Relationship to Policy Cornelius [facility] ([facility]) MEDICARE ADVANTAGE MCR ([facility]) Oct 14, 2022 [id number] [phone] MINA REZA PATIENT [facility] ([facility]) MEDICARE ADVANTAGE MCR ([facility]) Oct 14, 2016 [id number] MINA REZA PATIENT [facility] ([facility]) MEDICARE ADVANTAGE [facility] ([facility]) Oct 14, 2022 [id number] MINA REZA PATIENT Selected Encounter This section includes the information on record at [place] for the Encounter. Date/Time Encounter Type Encounter Description Reason Provider Source May 04, 2024 09:00 AM ELECTROCARDIOGRAM TRACING EKG ICD-10-CM I10 Essential (primary) hypertension ALIA MIXON Encounter Template Text not used by VA Assessments - Encounter Diagnoses This section includes the primary and secondary diagnoses documented for the Encounter. Date/Time Primary/Secondary Diagnosis Diagnosis Name Provider Source May 04, 2024 10:54 AM PRIMARY Essential (primary) hypertension ROSENDO MIXON Social History: Smoking Status (Most current) and Tobacco Use (All prior to encounter date) This section includes the most current, and the historical, smoking and tobacco- related health factors from the [place] facility where the Encounter took place. Current Smoking Status This section includes the most current smoking, or tobacco-related health factor, from the [place] facility where the Encounter took place. Date/Time Current Smoking Status Comment Facil ity Apr 06, 2024 10:00 AM VA-TOBACCO FORMER USER [facility] Tobacco Use History This section includes a history of the smoking, or tobacco-related health factors, that were collected on or before the date of the Encounter. The data comes from the [place] facility where the Encounter took place. Date/Time Smoking Status/Tobacco Use Comment F acility Apr 06, 2024 10:00 AM VA-TOBACCO QUIT 15 YRS OR MORE [facility] Apr 03, 2023 09:00 AM VA-TOBACCO NEVER USED [facility] Mar 29, 2022 02:00 PM VA-TOBACCO NEVER USED [facility] Advance Directives: All historical and current Section Date Range: From patient's date of to the date document was created. This section includes ALL of a patient's completed or amended [place] Advance and Rescinded Directives. The entries below indicate that a directive exists for the patient, but an actual copy is not included with this document. The data comes from all [place] facilities. Date Advance Directives Provider Source Mar 29, 2022 ADVANCE DIRECTIVE ERIC LAO [facility] Encounter Notes: All associated encounter notes This section contains the clinical notes associated to the Encounter. Date/Time Encounter Note(s) Provider Source May 04, 2024 10:53 AM CARDIOLOGY DIAGNOS TIC STUDY CONSULT: LOCAL TITLE: CONSULT REPORT/EKG STANDARD TITLE: CARDIOLOGY DIAGNOSTIC STUDY CONSULT DATE OF NOTE: MAY 04, 2024@10:53 ENTRY DATE: MAY 04, 2024@10:53:41 AUTHOR: ROSENDO MIXON EXP COSIGNER: URGENCY: STATUS: COMPLETED EKG tracing was performed for diagnosis of essential (primary) hypertension ordered by ANSLEY CONTRERAS. Current PC Provider: ANSLEY CONTRERAS Current PC Team: MARLO PACT 9 *WH* Current Pat. Status: Outpatient UCID: [id number] Primary Eligibility: NSC(VERIFIED) Patient Type: NSC OEF/OIF: NO Order Information To Service: EKG TRACING/SPOPC OUTPT From Service: CWM/SO/PACT 9 Requesting Provider: ANSLEY CONTRERAS Service is to be rendered on an OUTPATIENT basis Place: Die Grinder's choice Urgency: Routine Clinically Ind. Date: May 06, 2024 DST ID: Orderable Item: EKG TRACING/SPOPC OUTPT Consult: Consult Request Provisional Diagnosis: Essential (Primary) Hypertension(ICD-10-CM I10.) Reason For Request: Reason for EKG: hyperlipidemia Age:83 [place] Height:65 in [165.1 cm] (04/06/2024 10:19) [place] Weight:145.6 lb [66.04 kg] (04/06/2024 10:19) /audrey/ ROSENDO MIXON LPN LPN Signed: 05/04/2024 10:55 ROSENDO MIXON [facility]
--- OUTSIDE RECORDS SUMMARY | 2024-10-09 06:41 | XMS_ITS | Encounter Summary ---
Author Name [facility] [place] [facility] [place] [facility] [place] [facility] [place] Address [address] [place] [address] Care Team Providers Care Web Machine Tender Name Role Phone ANSLEY CONTRERAS Primary Care [...] Cornelius's Name Patient's Relationship to Policy Cornelius [facility] ([facility]) MEDICARE ADVANTAGE M[facility] ([facility]) Oct 14, 2022 [id number] MINA ERZA PATIENT [facility] ([facility]) MEDICARE ADVANTAGE MCR ([facility]) Oct 14, 2016 [id number] [phone] MINA REZA PATIENT [facility] ([facility]) MEDICARE [facility] ([facility]) Oct 14, 2022 [id number] MINA REZA PATIENT Selected Encounter This section includes the information on record at NH for the Encounter. Date/Time Encounter Type Encounter Description Reason Provider Source Apr 06, 2024 10:00 AM OFFICE O/P EST MOD 30 MIN PRIMARY CARE/MEDICINE ICD-10-CM Z00.00 Encntr for general adult medical exam w/o abnormal findings MAYELA CONTRERAS Encounter Template Text not used by [facility] Assessments - Encounter Diagnoses This section includes the primary and secondary diagnoses documented for the Encounter. Date/Time Primary/Secondary Diagnosis Diagnosis Name Provider Source Apr 06, 2024 10:55 AM PRIMARY Encntr for general adult medical exam w/o abnormal findings DIANEMAYELA [facility] Apr 06, 2024 10:55 AM SECONDARY Age-related osteoporosis w/o current pathological fracture DIANEMAYELA HERNÁNDEZ [facility] Apr 06, 2024 10:55 AM SECONDARY Hyperlipidemia, unspecified DIANEMAYELA FISHER [facility] Plan of Treatment: Future Appointments (+ 6 months) and Future Tests (+/- 45 days) The Plan of Treatment section includes future care activities for the [facility] This section includes future appointments and future orders which are active, pending or scheduled. Future Appointments This section includes appointments that were scheduled to occur 6 months from the date of the Encounter, up to a maximum of 20 appointments. The data comes from all [place] treatment facilities. Appointment Date/Time Appointment Type Appointme nt Facility Name May 04, 2024 09:00 AM AMBULATORY - MEDICINE [facility] Lab Results: +/- 30 days of the encounter This section includes the Chemistry and Hematology Lab Results on record with NH for the patient. Radiology Reports and Pathology Reports are provided separately, in subsequent sections. Lab Results This section contains the Chemistry/Hematology Results that were resulted 30 days before or 30 daysafter the date of the Encounter. Date/Time Source Result Type Result - Unit Interpretation Reference Range Comment Mar 24, 2024 07:48 AM [facility] BASIC METABOLIC PANEL (fasting) Specimen Type: SERUM No comment entered. Ordering Provider: MAYELA CONTRERAS Report Released Date/Time: Apr 03, 2023 09:31 AM Reporting Lab: [facility] [address] [id number] Performing Lab: [facility] [address] [address] UREA NITROGEN 15 mg/dL 7-25 GLUCOSE 81 mg/dL 65-100 SODIUM 135 mmol/L 135-145 POTASSIUM 4.1 mmol/L 3.5-5.0 CHLORIDE 104 mmol/L 100-110 CO2 26 meq/L 20-30 CREATININE, Serum 0.80 mg/dL 0.50-1.40 eGFR(CKD-EPI 2020) 88 mL/min >60 Mar 24, 2024 07:48 AM [facility] LIPID PANEL FASTING Specimen Type: SERUM No comment entered. Ordering Provider: MAYELA CONTRERAS Report Released Date/Time: Apr 03, 2023 09:31 AM Reporting Lab: [facility] [address] [address] Performing Lab: [facility] [address] [address] CHOLESTEROL 135 mg/dL TRIGLYCERIDE 111 mg/dL 0-150 LDL calculated 77 mg/dL 0-129 CHOL/HDL 3.8 HDL CHOLESTEROL 36 mg/dL L 40-60 Mar 24, 2024 07:48 AM [facility] LIVER FUNCTION Specimen Type: SERUM No comment entered. Ordering Provider: MAYELA CONTRERAS Report Released Date/Time: Apr 03, 2023 09:31 AM Reporting Lab: [facility] [address] [address] Performing Lab: [address] [address] PROTEIN,TOTAL 6.8 g/dL 6.0-8.3 ALBUMIN 3.8 g/dL 3.5-5.0 ALKALINE PHOSPHATASE 61 U/L 40-150 AST 23 U/L 5-34 ALT 22 U/L BILIRUBIN, TOTAL 0.8 mg/dL 0.2-1.2 Mar 24, 2024 07:48 AM [facility] CBC AND DIFF (AUTO) Specimen Type: BLOOD No comment entered. Ordering Provider: MAYELA CONTRERAS Report Released Date/Time: Apr 03, 2023 09:31 AM Reporting Lab: [facility] [address] [address] Performing Lab: [address] [address] WBC 6.29 10*3/uL 4.50-11.00 RBC 4.35 10*6/uL 4.23-5.66 HGB 14.2 g/dL 12.8-17 HCT 42.0 39.2-50.4 MCV 96.6 fL 82-99 MCHC 33.8 g/dL 30.8-35.1 PLT 207 10*3/uL 140-360 RDW-CV 12.8 12.0-16.0 York, Abs 0.48 10*3/uL 0.30-1.10 MCH 32.6 pg 26.2-32.6 Neut % 66.0 43.7-75.8 Lymph % 25.1 14.0-42.3 York % 7.6 5.1-13.7 Eos % 0.5 0.4-6.8 Baso % 0.5 0.1-2.0 Neut, Abs 4.15 10*3/uL 2.20-7.60 Lymph, Abs 1.58 10*3/uL 1.00-3.20 Eos, Abs 0.03 10*3/uL 0.03-0.44 Baso, Abs 0.03 10*3/uL 0.01-0.13 Immature Gran % 0.3 0.0-0.7 Immature Gran, Abs 0.02 10*3/uL 0.00-0.06 Mar 24, 2024 07:48 AM [facility] HEMOGLOBIN A1C PANEL Specimen Type: BLOOD Comment: Values obtained from A1C measurements can vary. For atypical A1C assays, a reported value of 7.0 could actually be between 6.72 and 7.28 if measured by a reference method. A reported value of 9.0 could actually be between 8.73 and 9.27. Ref: http://www.ngs p.org/CAPdata. asp Ordering Provider: MAYELA CONTRERAS Report Released Date/Time: Apr 03, 2023 09:31 AM Reporting Lab: [facility] [address] [address] Performing Lab: [address] [address] HEMOGLOBIN A1C 5.0 4.0-5.6 Mar 24, 2024 07:48 AM [facility] TSH Specimen Type: SERUM No comment entered. Ordering Provider: MAYELA CONTRERAS Report Released Date/Time: Apr 03, 2023 09:31 AM Reporting [facility] [place] [facility] [address] [address] Performing Lab: [place] [facility] [place] [facility] [address] [address] TSH 3.15 u[IU]/mL 0.35-5.00 Mar 24, 2024 07:48 AM [facility] [place] [facility] CALCIUM Specimen Type: SERUM No comment entered. Ordering Provider: MAYELA CONTRERAS Report Released Date/Time: Apr 03, 2023 09:31 AM Reporting Lab[facility] [place] [facility] [address] [address] Performing Lab: [facility] [place] [facility] [address] [address] CALCIUM 8.4 mg/dL L 8.5-10.2 Mar 24, 2024 07:48 AM [facility] VITAMIN D (25-[place]) Specimen Type: SERUM No comment entered. Ordering Provider: MAYELA CONTRERAS Report Released Date/Time: Apr 03, 2023 09:31 AM Reporting Lab: [facility] [place] [facility] [address] [address] Performing Lab: [facility] [place] [address] [address] VITAMIN D (25-OH) 45 ng/mL 20-50 Social History: Smoking Status (Most current) and Tobacco Use (All prior to encounter date) This section includes the most current, and the historical, smoking and tobacco- related health factors from the NH facility where the Encounter took place. Current Smoking Status This section includes the most current smoking, or tobacco-related health factor, from the NH facility where the Encounter took place. Date/Time Current Smoking Status Comment David neeyl Apr 06, 2024 10:00 AM NH-TOBACCO FORMER USER [facility] Tobacco Use History This section includes a history of the smoking, or tobacco-related health factors, that were collected on or before the date of the Encounter. The data comes from the NH facility where the Encounter took place. Date/Time Smoking Status/Tobacco Use Comment F [email or web address] Apr 06, 2024 10:00 AM VA-TOBACCO QUIT 15 YRS OR MORE [facility] Apr 03, 2023 09:00 AM VA-TOBACCO NEVER USED [facility] Mar 29, 2022 02:00 PM VA-TOBACCO NEVER USED [facility] Advance Directives: All historical and current Section Date Range: From patient's date of to the date document was created. This section includes ALL of a patient's completed or amended [place] Advance and Rescinded Directives. The entries below indicate that a directive exists for the patient, but an actual copy is not included with this document. The data comes from all [place] facilities. Date Advance Directives Provider Source Mar 29, 2022 ADVANCE DIRECTIVE ERIC LAO [facility] Encounter Notes: All associated encounter notes This section contains the clinical notes associated to the Encounter. Date/Time Encounter Note(s) Provider Source Apr 06, 2024 10:19 AM PREVENTIVE MEDICIN E NURSING NOTE: LOCAL TITLE: CLINICAL REMINDERS/NURSING STANDARD TITLE: PREVENTIVE MEDICINE NURSING NOTE DATE OF NOTE: APR 06, 2024@10:19 ENTRY DATE: APR 06, 2024@10:19:56 AUTHOR: MORIAH WIGGINS COSIGNER: URGENCY: STATUS: COMPLETED Advance Directive Screen MH AD: The Patient's Advance Directive requires updating. A consult to to Social Work Services was entered at this visit so an appointment can be made with the patient to review and update the Advance Directive. The patient received education about Advance Directives and written notification of his/her rights. Suicide Screen: C-SSRS Screening [place] Suicide Severity Rating Scale (C-SSRS) screener 1. Over the past month, have you wished you were or wished you could go to sleep and not wake up? No 2. Over the past month, have you had any actual thoughts of killing yourself? No 3. Over the past month, have you been thinking about how you might do this? Response not required due to responses to other questions. 4. Over the past month, have you had these thoughts and had some intention of acting on them? Response not required due to responses to other questions. 5. Over the past month, have you started to work out or worked out the details of how to kill yourself? Response not required due to responses to other questions. 6. If yes, at any time in the past month did you intend to carry out this plan? Response not required due to responses to other questions. 7. In your lifetime, have you ever done anything, started to do anything, or prepared to do anything to end your life (for example, collected pills, obtained a gun, gave away valuables, went to the roof but didn't jump)? No 8. If YES, was this within the past 3 months? Response not required due to responses to other questions. Homelessness/Food Insecurity Screen: In the past 2 months, have you been living in stable housing that you own, rent, or stay in as part of a household? Yes - Living in stable housing. Are you worried or concerned that in the next 2 months you may NOT have stable housing that you own, rent, or stay in as part of a household? No - Not worried about housing near future The [place] reports the following: Within the past 12 months, you worried whether your food would run out before you got money to buy more. Never true Within the past 12 months, the food you bought just didn't last and you didn't have money to get more. Never true Depression Screening: Perform PHQ-2 A PHQ-2 screen was performed. The score was 0 which is a negative screen for depression. Over the past two weeks, how often have you been bothered by the following problems? 1. Little interest or pleasure in doing things Not at all 2. Feeling down, depressed, or hopeless Not at all Falls & Incontinence Screen: Falls Screen: During the past 12 months, did the patient report any falls? 4. No falls within the past year. Incontinence Screen: During the past 12 months, has the patient has any characteristics of incontinence (ability, voiding, leakage, etc.)? No incontinence. Tobacco Use Screening: The patient is a former tobacco user. The patient quit fifteen or more years ago. Alcohol Use Screen (AUDIT-C): Alcohol Screen: SCREEN FOR ALCOHOL (AUDIT-C) An alcohol screening test (AUDIT-C) was negative (score=0). 1. How often did you have a drink containing alcohol in the past year? Consider a drink to be a 12 ounce can or bottle of regular beer, 8 ounces of malt liquor, a 5 ounce glass of table wine, or a 1.5 ounce shot of liquor (like scotch, gin, or vodka). Never 2. How many drinks containing alcohol did you have on a typical day when you were drinking in the past year? Response not required due to responses to other questions. 3. How often did you have six or more drinks on one occasion in the past year? Response not required due to responses to other questions. COVID-19 Immunization: Refused Moderna Monovalent COVID-19 vaccine Immunization: COVID-19 (MODERNA), MRNA, LNP-S, PF, 50 MCG/0.5 ML (AGES 12+ YEARS) Refusal Reason: PATIENT DECISION Patient refuses all immunization(s) in the COVID-19 group Comment: us up tp date with vaccine. see Immunization record Date Documented: 04/06/24 10:24 RHS Screen: RHS Screen Session Format: Face to Face Environmental Check Upon inquiry, the individual reports that the environment is safe to proceed. Informed Consent to Screen and Document The individual consents to proceed with screening. The individual consents to documentation of responses. PRIMARY SCREEN: In the past 12 months, how often did a current or former intimate partner (e.g., boyfriend, girlfriend, , , sexual partner): 1. Scream or curse at you Never 2. Insult or talk down to you Never 3. Threaten you with harm Never 4. Physically hurt you Never 5. Force or pressure you to have sexual contact against your will, or when you were unable to say no Never ?? The HITS tool (items 1-4 above) is [place] copyright protected by Luís Appiah MD, and the user has full rights to use it throughout the [place] system. PRIMARY SCREEN RESULT: The Primary Screen is NEGATIVE. The individual answered never to all forms of IPV above (i.e., answered never to all 5 items) The individual accepts education and/or resources: No EDUCATION: The individual indicated readiness to learn. Education offered during this session as noted above. The individual indicated understanding by asking relevant questions and making appropriate comments. No barriers to learning were observed or identified MED LIST REVIEWED WITH . PROVIDER COMPLETED MED REC DURING THE VISIT. /audrey/ MORIAH WIGGINS LPN LPN Signed: 04/06/2024 10:26 MORIAH WIGGINS Apr 06, 2024 08:18 AM PHYSICIAN NOTE: LOCAL TITLE: MD NOTE STANDARD TITLE: PHYSICIAN NOTE DATE OF NOTE: APR 06, 2024@08:18 ENTRY DATE: APR 06, 2024@08:18:16 AUTHOR: ANSLEY CONTRERAS EXP COSIGNER: URGENCY: STATUS: COMPLETED CC: 83 year old WHITE MALE SERVICE CONNECTED % - NONE FOUND HPI: Doing well; has not been taking fish oil for the last six months. Rperts increased fish intake and healthier protein sources. Lives with spouse. No smoking/drinking. Active in caodaism. Problem list and medications reviewed. Last Labs: Mar 2024 - WNL Last seen Jul 2023 (edited exerpt): ...ASSESSMENT & PLAN: 82 year old MALE SERVICE CONNECTED % - NONE FOUND presents for 2-month history of persistent productive cough post-COVID without associated fever/chills/night sweats/shortness of breath. Noted rhonchi on inspiration. Expected post COVID versus bronchitis versus allergies. Discussed options with the patient. We can treat for atypical pneumonia along with antitussives. CXR if persistent. Discussed access of care including Urgent Care with XR over the weekend. Otherwise [facility] study in place. RTC 1 week Active problems - Computerized Problem List is the source for the followin. Osteoporosis bisphosphonate tx initiated 04/2023 (-04/2028) DXA repeat 04/2025 2. Triglyceride level - finding 3. CoManagement Dr. Jacinto 4. H/O: multiple allergies on monthly immunotheraphy 5. Cramp in muscle Right thigh 6. Degeneration of lumbosacral intervertebral disc 7. History of lumbar laminectomy 8. History of inguinal hernia surgery Left 9. History of total knee replacement of both knees 10. Wrist surgery Right 11. Family history: Diabetes mellitus Brother, mother, sister 12. Family history of hypertension Brother, mother, sister 13. Family history: Alzheimer's disease Brother, sister PHYSICAL EXAMINATION/DIRECTED EXAM: BP:122/74 (04/06/2024 10:19) Resp:20 (04/06/2024 10:19) Temp:97.1 F [36.2 C] (04/06/2024 10:19) Pulse:68 (04/06/2024 10:19) WEIGHT 04/06/2024 10:19 145.6(66.04)[24] 08/12/2023 10:21 146.2(66.32)[24] 04/03/2023 09:15 148.2(67.22)[25] Comfortable S1S2 RRR lungs CTA Benign abdomen No edema ASSESSMENT & PLAN: 83 year old MALE [facility] Comanaged presents annual follow-up. Unremarkable interim other than dietary changes with sustaine contorl of triglycerides. Tolerating osteoporosis treatment No longer following outside PCP. Osteoporosis - continue Reviewed wellness recommendations including but not exclusively focus on sleep quality, stress management, healthy diet and adequate hydration. Discuss healthy weight goals including age-appropriate exercises which incorporates/considers present orthopedic issues and increased stress of adequate recovery times/nutrition/upper body/core strength/flexibility and balance along with cardiovascular fitness. Health Care Maintenance (HCM) for age- and gender-specific routine screens (including eye and dental)/laboratory investigations. Discussed recommendations for immunizations, general recommendations regarding sleep, stress management, nutrition/hydration as well as balanced exercise regimens to maintain health. Reviewed general overview of mental and medical services available in the [facility] as well as points of access to medical and mental health VA and nonNH contracted services. Plan of care discussed with patient who articulates understanding. Chronic issues reviewed briefly; no changes to management unless specified above. RTC annually and as needed TIME ATTESTATION: Time spent directly with the patient was ( x ) 30 minutes More than 50% of the time spent with the patient included counselling regarding the admission Medical Review, History and Physical Examination, discussion of the findings, both remote and local data in the medical record, management, and patient education for the annotated medical conditions above. Discussed with patient and agrees to plan. VA and Non VA meds were reconciled. Today's documentation was made using voice recognition software. This note may contain spelling/grammatical errors secondary to this software. Patient provided copies of labs/studies and medication list. Upcoming Appointments: 04/06/2024 10:00 CWM/SO/PACT 9 Med Reconciliation: Active Outpatient Medications (including Supplies): Active Outpatient Medications Status 1) ALENDRONATE 70MG TAB TAKE ONE TABLET BY MOUTH ONCE A ACTIVE WEEK FOR OSTEOPOROSIS (TAKE WITH A FULL GLASS OF WATER; REMAIN UPRIGHT FOR 30 MINUTES; NO FOOD OR DRINK FOR 30 MINUTES) 2) CALCIUM 500MG (CA CARB-1.25GM) TAB TAKE TWO TABLETS ACTIVE BY MOUTH ONCE DAILY FOR OSTEOPOROSIS 3) CHOLECALCIF 50MCG (D3-2,000UNIT) TAB TAKE ONE TABLET ACTIVE BY MOUTH ONCE DAILY FOR OSTEOPOROSIS FOR VITAMIN SUPPLEMENTATION Medication (Local) Status FISH OIL 1000MG (500MG DHA/EPA) CAP Directions: TAKE ONE CAPSULE BY MOUTH ONCE DAILY Quantity: 100 for 90 days Provider: ANSLEY CONTRERAS Expires: 04/03/24 Status: Medication (Remote) Status No remote medications found. /audrey/ ANSLEY CONTRERAS MD PHYSICIAN Signed: 04/06/2024 10:55 ANSLEY CONTRERAS [facility]
--- OUTSIDE RECORDS SUMMARY | 2024-10-09 06:41 | XMS_ITS | Encounter Summary ---
Author Name [facility] [place] Address [address] [place] [address] Care Team Providers Care Pit Crew Support Worker Name Role Phone ANSLEY CONTRERAS Primary Care [...] Cornelius's Name Patient's Relationship to Policy Cornelius [facility] ([facility]) MEDICARE ADVANTAGE MCR ([facility]) Oct 14, 2022 [id number] 76 MINA REZA PATIENT [facility] ([facility]) MEDICARE ADVANTAGE MCR ([facility]) Oct 14, 2016 [id number] MINA REZA PATIENT [facility] ([facility]) MEDICARE [facility] ([facility]) Oct 14, 2022 [id number] 76 MINA REZA PATIENT Selected Encounter This section includes the information on record at [place] for the Encounter. Date/Time Encounter Type Encounter Description Reason Provider Source May 04, 2024 09:05 AM ELECTROCARDIOGRAM REPORT EKG ICD-10-CM Z13.6 Encounter for screening for cardiovascular disorders [facility] Encounter Template Text not used by [facility] Assessments - Encounter Diagnoses This section includes the primary and secondary diagnoses documented for the Encounter. Date/Time Primary/Secondary Diagnosis Diagnosis Name Provider Source May 05, 2024 03:31 PM PRIMARY Encounter for screening for cardiovascular disorders MARSHALL SCALES [facility] Advance Directives: All historical and current Section Date Range: From patient's date of to the date document was created. This section includes ALL of a patient's completed or amended [place] Advance and Rescinded Directives. The entries below indicate that a directive exists for the patient, but an actual copy is not included with this document. The data comes from all [place] facilities. Date Advance Directives Provider Source Mar 29, 2022 ADVANCE DIRECTIVE ERIC LAO [facility] Encounter Notes: All associated encounter notes This section contains the clinical notes associated to the Encounter. Date/Time Encounter Note(s) Provider Source May 05, 2024 03:30 PM CARDIOLOGY PROCEDU RE NOTE: LOCAL TITLE: EKG OUTPATIENT RESULT STANDARD TITLE: CARDIOLOGY PROCEDURE NOTE DATE OF NOTE: MAY 05, 2024@15:30 ENTRY DATE: MAY 05, 2024@15:31:04 AUTHOR: MARSHALL SCALES EXP COSIGNER: URGENCY: STATUS: COMPLETED An EKG was done on: Apr Please see [facility] for the EKG result. /audrey/ MARSHALL SCALES ALLEY TENDER Signed: 05/05/2024 15:31 MARSHALL SCALES [facility]
--- OUTSIDE RECORDS SUMMARY | 2024-10-09 06:41 | XMS_ITS | Encounter Summary ---
Author Name [facility] Address [address] [place] [id number] Care Team Providers Care Marketing Database Coordinator Name Role Phone ANSLEY CONTRERAS Primary Care [...] Cornelius's Name Patient's Relationship to Policy Cornelius [facility] ([facility]) MEDICARE ADVANTAGE [facility] ([facility]) Oct 14, 2022 [id number] MINA REZA PATIENT [facility] ([facility]) MEDICARE ADVANTAGE MCR ([facility]) Oct 14, 2016 [id number] MINA REZA PATIENT [facility] ([facility]) MEDICARE [facility] ([facility]) Oct 14, 2022 [id number] MINA REZA PATIENT Selected Encounter This section includes the information on record at [place] for the Encounter. Date/Time Encounter Type Encounter Description Reason Provider Source Oct 16, 2023 09:00 AM OFF/OP EST FEBRUARY X REQ PHY/QHP PRIMARY CARE/MEDICINE ICD-10-CM Z23 Encounter for immunization MAURA LOYA [facility] Encounter Template Text not used by [facility] Assessments - Encounter Diagnoses This section includes the primary and secondary diagnoses documented for the Encounter. Date/Time Primary/Secondary Diagnosis Diagnosis Name Provider Source Oct 16, 2023 09:48 AM PRIMARY Encounter for immunization PAULINA LOYA Plan of Treatment: Future Appointments (+ 6 months) and Future Tests (+/- 45 days) The Plan of Treatment section includes future care activities for the patient from all [place] treatmentfacilities. This section includes future appointments and future orders which are active, pending or scheduled. Future Appointments This section includes appointments that were scheduled to occur 6 months from the date of the Encounter, up to a maximum of 20 appointments. The data comes from all [place] treatment facilities. Appointment Date/Time Appointment Type Appointme nt Facility Name Apr 06, 2024 10:00 AM AMBULATORY - MEDICINE [facility] Lab Results: +/- 30 days of the encounter This section includes the Chemistry and Hematology Lab Results on record with [place] for the patient. Radiology Reports and Pathology Reports are provided separately, in subsequent sections. Lab Results This section contains the Chemistry/Hematology Results that were resulted 30 days before or 30 daysafter the date of the Encounter. Date/Time Source Result Type Result - Unit Interpretation Reference Range Comment Sep 19, 2023 07:39 AM [facility] TRIGLYCERIDE Specimen Type: SERUM No comment entered. Ordering Provider: GIOVANNI CONTRERAS Report Released Date/Time: Apr 03, 2023 09:31 AM Reporting Lab: [facility] [address] [id number] Performing Lab: [facility] [address] [id number] TRIGLYCERIDE 126 mg/dL 0-150 Immunizations: All administered on the encounter date This section contains immunizations associated to the Encounter. Immunization Series Date Issued Reaction Comments COVID-19 (MODERNA), MRNA, LN P-S, PF, 50 MCG/0.5 ML (AGES 12+ YEARS) Oct 16, 2023 RSV, BIVALENT, PROTEIN SUBUN IT RSVPREF, DILUENT RECONSTITUTED, 0.5 ML, PF Oct 16, 2023 Social History: Smoking Status (Most current) and Tobacco Use (All prior to encounter date) This section includes the most current, and the historical, smoking and tobacco- related health factors from the [place] facility where the Encounter took place. Current Smoking Status This section includes the most current smoking, or tobacco-related health factor, from the [place] facility where the Encounter took place. Date/Time Current Smoking Status Comment David ity Apr 03, 2023 09:00 AM [facility]-TOBACCO NEVER USED [facility] Tobacco Use History This section includes a history of the smoking, or tobacco-related health factors, that were collected on or before the date of the Encounter. The data comes from the [place] facility where the Encounter took place. Date/Time Smoking Status/Tobacco Use Comment F acility Mar 29, 2022 02:00 PM [facility]-TOBACCO NEVER USED [facility] Advance Directives: All historical and current Section Date Range: From patient's date of to the date document was created. This section includes ALL of a patient's completed or amended [place] Advance and Rescinded Directives. The entries below indicate that a directive exists for the patient, but an actual copy is not included with this document. The data comes from all [place] facilities. Date Advance Directives Provider Source Mar 29, 2022 ADVANCE DIRECTIVE ERIC LAO [facility] Encounter Notes: All associated encounter notes This section contains the clinical notes associated to the Encounter. Date/Time Encounter Note(s) Provider Source Oct 16, 2023 09:33 AM NURSING NOTE: LOCAL TITLE: PRIMARY CARE NURSE NOTE STANDARD TITLE: NURSING NOTE DATE OF NOTE: OCT 16, 2023@09:33 ENTRY DATE: OCT 16, 2023@09:34 AUTHOR: PAULINA LOYA EXP COSIGNER: URGENCY: STATUS: COMPLETED F: SARJBIT REZA is a 83 yo male presenting to the clinic for a scheduled vaccination of RSV AND COVID-19 per ANSLEY CONTRERAS. Dx: Immunization D/A: Respiratory Syncytial Virus (RSV) Vaccine: RSV vaccine administered today. Administered: RSV, BIVALENT, PROTEIN SUBUNIT RSVPREF, DILUENT RECONSTITUTED, 0.5 ML, PF Date Administered: Oct 16, 2023 09:00 Security Incident Handler: [employer], [employer] Lot: [id number] Exp Date: Jan 10, 2025 [place]: [id number] Admin Route/Site: INTRAMUSCULAR/LEFT DELTOID Dosage: 0.5mL Vaccine Information Statement(s): RSV (RESPIRATORY SYNCYTIAL VIRUS) VACCINE VIS Aug 01, 2023 (KENYAN) Order By: Ansley CONTRERAS Administered By: Paulina Loya Vaccine Information Sheet (VIS) was given to the patient/caregiver, education regarding adverse reactions was discussed, as well as barriers to learning, if any, were acknowledged. COVID-19 Immunization: Moderna Monovalent (Spikevax) Administered: COVID-19 (MODERNA), MRNA, LNP-S, PF, 50 MCG/0.5 ML (AGES 12+ YEARS) Date Administered: Oct 16, 2023 09:00 Series: [employer] Security Incident Handler: [employer]. Lot: [id number] Exp Date: March 12, 2024 [facility]: [phone] Admin Route/Site: INTRAMUSCULAR/RIGHT DELTOID Dosage: 0.5mL Vaccine Information Statement(s): COVID-19 MRNA VACCINE (12+ YRS) VACCINE VIS Aug 01, 2023 (KENYAN) Order By: Policy Administered By: Paulina Loya Vaccine administered without complications. The patient was advised to remain in the facility for 15 minutes post vaccination. PATIENT EDUCATION - SIDE EFFECTS VACCINATION Advised pt of the following POSSIBLE side effects and to call us if any of these symptoms are severe or do not go away: pain at injection site Advised of SERIOUS side effects and to call us immediately or get emergency medical treatment if you experience: wheezing or difficulty breathing shortness of breath cough chest tightness flushing hives swelling of the face, mouth, and tongue difficulty swallowing fainting or dizziness RTC in 0 weeks for next injection. Upcoming Appointments: 04/06/2024 10:00 CWM/SO/PACT 9 No barriers; Patient understands and agrees to current treatment plan. If pt has any questions, concerns, or changes in current health status he will call or [facility] 10 minutes spent in patient care and education NO CLINICAL REMINDERS WERE DUE AT THE TIME OF THIS NURSING VISIT. /audrey/ MARYANN OTT,RN-BC REGISTERED NURSE (RN) Signed: 10/16/2023 09:48 PAULINA LOYA [facility]
--- OUTSIDE RECORDS SUMMARY | 2024-10-09 06:42 | XMS_ITS | Continuity of Care Document ---
Author Organization [facility] Address [address] [place] [address] [address] [place] [address] Phone Care Team Providers Care Export Clerk Name Role Phone Todd HEATON, Matthew Unavailable [...] Copied on Encounter OFFICE/OUTPA TIENT VISIT, NEW [facility], [address], [place], [place], [id number], [place] tel:[phone] [facility] Body mass index (BMI) 22.0-22.9, adultDyspneaHFrE F, NYHA Class IIIOther pulmonary embolism without acute cor pulmonaleParoxys mal atrial fibrillationAnem iaThrombocytopen iaCKDOther secondary pulmonary hypertension 3 Todd Castro. [address], [address], [place], [address], . tel:[phone] Referring Provider: Tal Aguilar, [address], [place], [address] . tel:[phone] Family History Family Member Type Diagnosis Age At Onset No Information Payers Payer name Insurance type Covered alliance party ID Authoriza lory(s) [employer] [place] [facility] Senior Adv [id number] Social History Type Description Quantity Date Captured [...]
[2024-10-09 08:24] LABS: Alanine Aminotransferase 30 U/L (0-40); Albumin Level 4.2 g/dL (3.5-5.0); Alkaline Phosphatase 56 U/L (39-117); Anion Gap 12 (12-20); Aspartate Amino Transferase 39 U/L (5-37); Blood Urea Nitrogen 12 mg/dL (9-16); Calcium 9.4 mg/dL (8.4-10.2); Carbon Dioxide 29 mmol/L (22-29); Chloride 105 mmol/L (96-108); Cholesterol 134 mg/dL (<200); Estimated Glomerular Filt Rate > 60; Glucose Random 87 mg/dL (60-115); HDL Cholesterol 42 mg/dL (>40); LDL Cholesterol Calculated 71 mg/dL (<100); Potassium 4.8 mmol/L (3.3-5.1); Sodium 141 mmol/L (135-145); Total Protein 7.5 g/dL (6.5-8.0); Triglycerides 107 mg/dL (<150)
== END 2024-10-09 06:39 | disposition home or self-care (01) ==
LOC: HO.LAB 06:38
PROVIDERS: PCP Internal Medicine; Visit Provider Internal Medicine
DX: E78.00 Pure hypercholesterolemia, unspecified (principal); I70.90 Unspecified atherosclerosis
CPT/HCPCS: 36415; 80053; 80061

== ENCOUNTER 2024-10-23 08:19 | Outpatient (AMB) | payer MEDICARE, SELFPAY ==
--- OUTSIDE RECORDS SUMMARY | 2024-10-23 08:29 | XMS_ITS | Continuity of Care Document ---
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 Unavailable Unavailable Problems Combined list of problems from Department of Defense and Veterans Affairs facilities. It does not include entries that were removed or entered in error. Problem Status Onset Date Problem Type Date of Resolution Comments Source CoManagement Active Condition Apr 03, 2023 Entered By: LUCY CONTRERAS Comment: Dr. Jacinto [place] Cramp in muscle Active Condition Mar 29, 2022 Entered By: SHANTA MONROE Comment: Right thigh [place] Degeneration of lumbosacral intervertebral disc Active Condition [place] Family history of hypertension Active Condition Mar 29, 2022 Entered By: SHANTA MONROE Comment: Brother, mother, sister [place] Family history: Alzheimer's disease Active Condition Mar 29, 2022 Entered By: SHANTA MONROE Comment: Brother, sister [place] Family history: Diabetes mellitus Active Condition Mar 29 Entered By: SHANTA MONROE Comment: Brother, mother, sister [place] H/O: multiple allergies Active Condition Apr 03, 2023 Entered By: LUCY CONTRERAS Comment: on monthly immunotheraphy [place] History of inguinal hernia surgery Active Condition Mar 29, 2022 Entered By: SHANTA MONROE Comment: Left [place] History of lumbar laminectomy Active Condition [place] History of total knee replacement of both knees Active Condition [place] Osteoporosis Active Condition May 13, 2023 Entered By: LUCY CONTRERAS Comment: bisphosphonate tx initiated 04/2023 (-04/2028)May 13, 2023 Entered By: LUCY CONTRERAS Comment: DXA repeat 04/2025 [place] Triglyceride level - finding Active Condition [place] Wrist surgery Active Condition Mar Entered By: SHANTA MONROE Comment: Right [place] Diagnosis: ICD-10-CM Z13.6 Encounter for screening for cardiovascular disorders Active Diagnosis [facility] Diagnosis: ICD-10-CM I10 Essential (primary) hypertension Active Diagnosis [facility] Diagnosis: ICD-10-CM Z00.00 Encntr for general adult medical exam w/o abnormal findings Active Diagnosis [facility] Diagnosis: ICD-10-CM Z23 Encounter for immunization Active Diagnosis [facility] Diagnosis: ICD-10-CM E78.1 Pure hyperglyceridemia Active Diagnosis [facility] [place] Diagnosis: ICD-10-CM Z09 Encntr for f/u exam aft trtmt for cond oth than malig neoplm Active Diagnosis [facility] Diagnosis: ICD-10-CM R05.3 Chronic cough Active Diagnosis [facility] Diagnosis: ICD-10-CM M81.0 Age-related osteoporosis w/o current pathological fracture Active Diagnosis [facility] Medications Combined list of outpatient medications from Department of Defense and Veterans Affairs facilities.Medications provided include 1) outpatient medications from the last 15 months, and 2) patient-reported medications. Medication Details Route Status Patient Instructions Prescription Expires Prescription Number Last Dispense Date Ordering Provider Order Date Order Qty Source ALENDRONATE 70MG TAB TAKE ONE TABLET BY MOUTH ONCE A WEEK FOR OSTEOPOR OSIS (TAKE WITH A FULL GLASS OF WATER; REMAIN UPRIGHT FOR 30 MINUTES; NO FOOD OR DRINK FOR 30 MINUTES) ORAL ACTIVE 04/07/2025 [id number] 4 ERMELINDA CONTRERAS O 2023 12 [facility] ALENDRONATE 70MG TAB TAKE ONE TABLET BY MOUTH ONCE A WEEK FOR OSTEOPOR OSIS (TAKE WITH A FULL GLASS OF WATER; REMAIN UPRIGHT FOR 30 MINUTES; NO FOOD OR DRINK FOR 30 MINUTES) ORAL DISCONT INUED 05/13/2024 [id number] 4 ERMELINDA CONTRERAS O 2022 12 [facility] AZITHROMYCI N 250MG TAB TAKE TWO TABLETS BY MOUTH NOW FOR 1 DAY, THEN TAKE ONE TABLET ONCE DAILY FOR 4 DAYS ORAL 09/11/2023 [id number] 3 ERMELINDA CONTRERAS O 2022 6 [place] BENZONATATE 100MG CAP TAKE ONE CAPSULE BY MOUTH THREE TIMES DAILY NEEDED FOR COUGH ORAL 09/11/2023 [id number] 3 DIANETAWANA FISHERLINARI O 2022 21 [place] CALCIUM 500MG (CA CARBONATE-1 .25GM) TAB TAKE TWO TABLETS BY MOUTH ONCE DAILY FOR OSTEOPOR OSIS ORAL 05/13/2024 [id number] 4 DIANE, APOLINARI O 2022 180 [place] CHOLECALCIF ARLETTE 50MCG (2,000UNIT) TAB TAKE ONE TABLET BY MOUTH ONCE DAILY FOR OSTEOPOR OSIS FOR VITAMIN SUPPLEME NTATION ORAL 05/13/2024 [id number] 4 DIANE, APOLINARI O 2022 90 [place] FISH OIL 1000MG (500MG DHA/EPA) CAP,ORAL TAKE ONE CAPSULE BY MOUTH ONCE DAILY ORAL 04/03/2024 [id number] 3 DIANE, APOLINARI O 2022 100 [place] THROAT LOZENGE W/BENZOCAIN E,MENTHOL (SF) DISSOLVE 1 LOZENGE BY MOUTH FIVE TIMES A DAY FOR SORE THROAT ORAL 09/11/2023 [id number] DIANE, APOLINARI O 2022 32 [place] Allergies, Adverse Reactions, Alerts Combined list of allergies from Department of Defense and Veterans Affairs facilities. It does not include entries that were removed or entered in error. Substance Category Reaction Severity Reaction type Status Date Reported Comments Source NAPROXEN Propensity to adverse reactions to drug (finding) Weakness present active 2 [facility] Immunizations Combined list of available immunizations from the Department of Defense and Veterans Affairs facilities. Immunization Series Date Given Administered By Site Reaction Lot Number CVX Code Drug Dog Walker Status Comments Source COVID-19 (MODERNA), MRNA, LNP-S, PF, 50 MCG/0.5 ML (AGES 12+ YEARS) 2023 MAURA LOYA RIGHT DELTO ID [id number] 312 complet ed [place] RSV, BIVALENT, PROTEIN SUBUNIT RSVPREF, DILUENT RECONSTITUTED , 0.5 ML, PF 2023 MAURA LOYA H LEFT DELTO ID [id number] 305 complet ed [place] PNEUMOCOCCAL CONJUGATE PCV20, POLYSACCHARID E [id number] CONJUGATE, ADJUVANT, PF 2022 ELENA WIGGINS LEFT DELTO ID [id number] 216 complet ed [place] TDAP 2022 MAURA LOYA LEFT DELTO ID [id number] 115 complet ed [place] ZOSTER RECOMBINANT 2 2022 MAURA LOYA LEFT DELTO ID [id number] 187 complet ed [place] INFLUENZA, UNSPECIFIED FORMULATION 2022 88 complet ed [facility] ZOSTER RECOMBINANT 1 2021 187 complet ed [place] COVID-19 (PFIZER), MRNA, LNP-S, BIVALENT BOOSTER, PF, 30 MCG/0.3 ML DOSE 1 2021 300 complet ed [facility] INFLUENZA, UNSPECIFIED FORMULATION 2021 88 complet ed [facility] PNEUMOCOCCAL POLYSACCHARID E PPV23 2021 33 complet ed [facility] COVID-19 (PFIZER), MRNA, LNP-S, PF, 30 MCG/0.3 ML DOSE 2 2021 208 complet ed [facility] COVID-19 (PFIZER), MRNA, LNP-S, PF, 30 MCG/0.3 ML DOSE 1 2021 208 complet ed [facility] INFLUENZA, UNSPECIFIED FORMULATION 2020 88 complet ed [facility] COVID-19 (PFIZER), MRNA, LNP-S, PF, 30 MCG/0.3 ML DOSE 3 2020 208 complet ed [facility] COVID-19 (PFIZER), MRNA, LNP-S, PF, 30 MCG/0.3 ML DOSE 2 2020 208 complet ed [facility] COVID-19 (PFIZER), MRNA, LNP-S, PF, 30 MCG/0.3 ML DOSE 1 2020 208 complet ed [facility] Results Combined list of recent chemistry, hematology and other laboratory results from Department of Defense and Veterans Affairs, ranging from 15 months to all on record, depending upon the facility. Order Name Results Value Reference Range Date Interpretation Specimen Comments Source BASIC METABOLIC PANEL (fasting) UREA NITROGEN [MASS/VOLUM E] IN SERUM OR PLASMA 15 mg/dL 7 - 25 03/24 Specimen Type: SERUM No comment entered. Ordering Provider: EVELINA CONTRERAS Report Released Date/Time: Apr 03, 2023 09:31 AM Reporting Lab: [facility] [address] [facility] [address] Performing Lab: [facility]ITALRBAPT[facility]THN [facility]USE[address] [address] [facility] BASIC METABOLIC PANEL (fasting) GLUCOSE [MASS/VOLUM E] IN SERUM OR PLASMA 81 mg/dL 65 - 100 03/24 Specimen Type: SERUM No comment entered. Ordering Provider: EVELINA CONTRERAS Report Released Date/Time: Apr 03, 2023 09:31 AM Reporting Lab: [facility] [address] [address] Performing Lab: [facility]ITALRBAPT[facility]OUTHN [facility]USE[address] [address] [facility] BASIC METABOLIC PANEL (fasting) SODIUM [MOLES/VOLU ME] IN SERUM OR PLASMA 135 mmol/L 135 - 145 03/24 Specimen Type: SERUM No comment entered. Ordering Provider: EVELINA CONTRERAS Report Released Date/Time: Apr 03, 2023 09:31 AM Reporting Lab: [facility] [address] [address] Performing Lab: [facility]OSPITALRUAB MED[facility] WESTTRN [facility]USE[address] [address] [facility] BASIC METABOLIC PANEL (fasting) POTASSIUM [MOLES/VOLU ME] IN SERUM OR PLASMA 4.1 mmol/L 3.5 - 5.0 03/24 Specimen Type: SERUM No comment entered. Ordering Provider: EVELINA CONTRERAS Report Released Date/Time: Apr 03, 2023 09:31 AM Reporting Lab: [facility]ITALRBAPT[facility]THN [facility]USE[address] [address] Performing Lab: [facility]ITALRL [place] [facility] [address] [facility] [address] [facility]ITALRL [facility]N [facility] SYSTEMUSE [facility] BASIC METABOLIC PANEL (fasting) CHLORIDE [MOLES/VOLU ME] IN SERUM OR PLASMA 104 mmol/L 100 - 110 03/24 Specimen Type: SERUM No comment entered. Ordering Provider: EVELINA CONTRERAS Report Released Date/Time: Apr 03, 2023 09:31 AM Reporting Lab: [facility] [place] [place] [facility] [address] [facility] [address] Performing Lab: [facility]ITALRL W[facility]N [facility] SYSTEMUSENICHOL[facility] [address] [facility] [address] [facility]OSPITALRUAB MEDICAL WESTTRN [facility] SYSTEMUSE [facility] BASIC METABOLIC PANEL (fasting) CARBON DIOXIDE, TOTAL [MOLES/VOLU ME] IN SERUM OR PLASMA 26 meq/L 20 - 30 03/24 Specimen Type: SERUM No comment entered. Ordering Provider: EVELINA CONTRERAS Report Released Date/Time: Apr 03, 2023 09:31 AM Reporting Lab: [facility]ITALRL [facility] [address] [facility] [address] Performing Lab: [facility]ITALRL [facility]N [facility] SYSTEMUSENICHOL[facility] [address] [facility] [address] [facility]OS[facility]ITALRL TRN [facility] BASIC METABOLIC PANEL (fasting) CREATININE [MASS/VOLUM E] IN SERUM OR PLASMA 0.80 mg/dL 0.50 - 1.40 03/24 Specimen Type: SERUM No comment entered. Ordering Provider: EVELINA CONTRERAS Report Released Date/Time: Apr 03, 2023 09:31 AM Reporting Lab: [facility]ITALRL [place] [facility] [address] [facility] [address] Performing Lab: [facility] [place] [facility] [address] [facility] [address] [facility]ITALRL [facility]N [facility] SYSTEMUSE [facility] BASIC METABOLIC PANEL (fasting) GLOMERULAR FILTRATION RATE/1.73 SQ M.PREDICTED [VOLUME RATE/AREA] IN SERUM, PLASMA OR BLOOD BY CREATININE- BASED FORMULA (CKD-EPI 2020) 88 mL/min 60 03/24 Specimen Type: SERUM No comment entered. Ordering Provider: EVELINA CONTRERAS Report Released Date/Time: Apr 03, 2023 09:31 AM Reporting Lab: [facility] [place] [facility] [address] [facility] [address] Performing Lab: [facility] [place] [facility] [address] [facility] [address] [facility] [facility] LIPID PANEL FASTING CHOLESTEROL [MASS/VOLUM E] IN SERUM OR PLASMA 135 mg/dL 03/24 Specimen Type: SERUM No comment entered. Ordering Provider: EVELINA CONTRERAS Report Released Date/Time: Apr 03, 2023 09:31 AM Reporting Lab: [facility] [place] [facility] [address] [facility] [address] Performing Lab: [facility] [place] [facility] [address] [facility] [address] [facility]ITALRL WSTRN [place] [facility] LIPID PANEL FASTING TRIGLYCERID E [MASS/VOLUM E] IN SERUM OR PLASMA 111 mg/dL 0 - 150 03/24 Specimen Type: SERUM No comment entered. Ordering Provider: EVELINA CONTRERAS Report Released Date/Time: Apr 03, 2023 09:31 AM Reporting Lab: [facility] [place] [facility] [address] [facility] [address] Performing Lab: [facility] [place] [facility] [address] [facility] [address] [facility]RL [facility] [place] [facility] LIPID PANEL FASTING CHOLESTEROL IN LDL [MASS/VOLUM E] IN SERUM OR PLASMA BY CALCULATION 77 mg/dL 0 - 129 03/24 Specimen Type: SERUM No comment entered. Ordering Provider: EVELINA CONTRERAS Report Released Date/Time: Apr 03, 2023 09:31 AM Reporting Lab: [facility] [place] [facility] [address] [facility] [address] Performing Lab: [facility] [place] [facility] [address] [facility] [address] [facility]ITALRL [facility] [place] [facility] LIPID PANEL FASTING CHOLESTEROL .TOTAL/CHOL ESTEROL IN HDL [MASS RATIO] IN SERUM OR PLASMA 3.8 06/11 /2024 Specimen Type: SERUM No comment entered. Ordering Provider: EVELINA CONTRERAS Report Released Date/Time: Apr 03, 2023 09:31 AM Reporting Lab: [facility] [place] [facility] [address] [facility] [address] Performing Lab: [facility] [place] [facility] [address] [facility] [address] [facility] [place] [facility] LIPID PANEL FASTING CHOLESTEROL IN HDL [MASS/VOLUM E] IN SERUM OR PLASMA 36 mg/dL 40 - 60 03/24 L Specimen Type: SERUM No comment entered. Ordering Provider: EVELINA CONTRERAS Report Released Date/Time: Apr 03, 2023 09:31 AM Reporting Lab: [facility] [place] [facility] [address] [facility] [address] Performing Lab: [facility] [place] [facility] [address] [facility] [address] [facility] [place] [facility] LIVER FUNCTION PROTEIN [MASS/VOLUM E] IN SERUM OR PLASMA 6.8 g/dL 6.0 - 8.3 03/24 Specimen Type: SERUM No comment entered. Ordering Provider: EVELINA CONTRERAS Report Released Date/Time: Apr 03, 2023 09:31 AM Reporting Lab: [facility] [place] [facility] [address] [facility] [address] Performing Lab: [facility] [place] [facility] [address] [facility] [address] [facility] [place] [facility] LIVER FUNCTION ALBUMIN [MASS/VOLUM E] IN SERUM OR PLASMA 3.8 g/dL 3.5 - 5.0 03/24 Specimen Type: SERUM No comment entered. Ordering Provider: EVELINA CONTRERAS Report Released Date/Time: Apr 03, 2023 09:31 AM Reporting Lab: [facility] [place] [facility] [address] [facility] [address] Performing Lab: [facility] [place] [facility] [address] [facility] [address] [facility] [place] [facility] LIVER FUNCTION ALKALINE PHOSPHATASE [ENZYMATIC ACTIVITY/VO LUME] IN SERUM OR PLASMA 61 U/L 40 - 150 03/24 Specimen Type: SERUM No comment entered. Ordering Provider: EVELINA CONTRERAS Report Released Date/Time: Apr 03, 2023 09:31 AM Reporting Lab: [facility] [place] [facility] [address] [facility] [address] Performing Lab: [facility] [place] [facility] [address] [facility] [address] [facility] [place] [facility] LIVER FUNCTION ASPARTATE AMINOTRANSF ERASE [ENZYMATIC ACTIVITY/VO LUME] IN SERUM OR PLASMA 23 U/L 5 - 34 03/24 Specimen Type: SERUM No comment entered. Ordering Provider: EVELINA CONTRERAS Report Released Date/Time: Apr 03, 2023 09:31 AM Reporting Lab: [facility] [place] [facility] [address] [facility] [address] Performing Lab: [facility] [place] [facility] [address] [facility] [address] [facility] [place] [facility] LIVER FUNCTION ALANINE AMINOTRANSF ERASE [ENZYMATIC ACTIVITY/VO LUME] IN SERUM OR PLASMA 22 U/L 03/24 Specimen Type: SERUM No comment entered. Ordering Provider: EVELINA CONTRERAS Report Released Date/Time: Apr 03, 2023 09:31 AM Reporting Lab: [facility] [place] [facility] [address] [facility] [address] Performing Lab: [facility] [place] [facility] [address] [facility] [address] [facility] [place] [facility] LIVER FUNCTION BILIRUBIN.T OTAL [MASS/VOLUM E] IN SERUM OR PLASMA 0.8 mg/dL 0.2 - 1.2 03/24 Specimen Type: SERUM No comment entered. Ordering Provider: EVELINA CONTRERAS Report Released Date/Time: Apr 03, 2023 09:31 AM Reporting Lab: [facility] [place] [facility] [address] [facility] [address] Performing Lab: [facility] [place] [facility] [address] [facility] [address] [facility] [place] [facility] CBC AND DIFF (AUTO) LEUKOCYTES [#/VOLUME] IN BLOOD BY AUTOMATED COUNT 6.29 10*3/u L 4.50 - 11.00 03/24 Specimen Type: BLOOD No comment entered. Ordering Provider: EVELINA CONTRERAS Report Released Date/Time: Apr 03, 2023 09:31 AM Reporting Lab: [facility] [place] [address] [facility] [address] Performing Lab: [facility] [place] [facility] [address] [facility] [address] [facility] [place] [facility] CBC AND DIFF (AUTO) ERYTHROCYTE S [#/VOLUME] IN BLOOD BY AUTOMATED COUNT 4.35 10*6/u L 4.23 - 5.66 03/24 Specimen Type: BLOOD No comment entered. Ordering Provider: EVELINA CONTRERAS Report Released Date/Time: Apr 03, 2023 09:31 AM Reporting Lab: [facility] [place] [facility] [address] [facility] [address] Performing Lab: [facility] [place] [facility] [address] [facility] [address] [facility] [place] [facility] CBC AND DIFF (AUTO) HEMOGLOBIN [MASS/VOLUM E] IN BLOOD 14.2 g/dL 12.8 - 17 03/24 Specimen Type: BLOOD No comment entered. Ordering Provider: EVELINA CONTRERAS Report Released Date/Time: Apr 03, 2023 09:31 AM Reporting Lab: [facility] [place] [facility] [address] [facility] [address] Performing Lab: [facility] [place] [place] [facility] [address] [facility] [address] [facility] [place] [facility] CBC AND DIFF (AUTO) HEMATOCRIT [VOLUME FRACTION] OF BLOOD BY AUTOMATED COUNT 42.0 39.2 - 50.4 03/24 Specimen Type: BLOOD No comment entered. Ordering Provider: EVELINA CONTRERAS Report Released Date/Time: Apr 03, 2023 09:31 AM Reporting Lab: [facility] [address] [facility] [address] Performing Lab: [facility] [address] [facility] [address] [facility] CBC AND DIFF (AUTO) MCV [ENTITIC VOLUME] BY AUTOMATED COUNT 96.6 fL 82 - 99 03/24 Specimen Type: BLOOD No comment entered. Ordering Provider: EVELINA CONTRERAS Report Released Date/Time: Apr 03, 2023 09:31 AM Reporting Lab: [facility] [address] [facility] [address] Performing Lab: [facility] [place] [address] [facility] [address] [facility] CBC AND DIFF (AUTO) MCHC [MASS/VOLUM E] BY AUTOMATED COUNT 33.8 g/dL 30.8 - 35.1 03/24 Specimen Type: BLOOD No comment entered. Ordering Provider: EVELINA CONTRERAS Report Released Date/Time: Apr 03, 2023 09:31 AM Reporting Lab: [facility] [address] [facility] [address] Performing Lab: [facility] [place] [facility] [address] [facility] [address] [facility] CBC AND DIFF (AUTO) PLATELETS [#/VOLUME] IN BLOOD BY AUTOMATED COUNT 207 10*3/u L 140 - 360 03/24 Specimen Type: BLOOD No comment entered. Ordering Provider: EVELINA CONTRERAS Report Released Date/Time: Apr 03, 2023 09:31 AM Reporting Lab: [facility] [address] [facility] [address] Performing Lab: [facility] [address] [facility] [address] [facility] CBC AND DIFF (AUTO) ERYTHROCYTE DISTRIBUTIO N WIDTH [RATIO] BY AUTOMATED COUNT 12.8 12.0 - 16.0 03/24 Specimen Type: BLOOD No comment entered. Ordering Provider: EVELINA CONTRERAS Report Released Date/Time: Apr 03, 2023 09:31 AM Reporting Lab: [facility] [place] [facility] [address] [facility] [address] Performing Lab: [facility] [place] [facility] [address] [facility] [address] [facility] [place] [facility] CBC AND DIFF (AUTO) MONOCYTES [#/VOLUME] IN BLOOD BY AUTOMATED COUNT 0.48 10*3/u L 0.30 - 1.10 03/24 Specimen Type: BLOOD No comment entered. Ordering Provider: EVELINA CONTRERAS Report Released Date/Time: Apr 03, 2023 09:31 AM Reporting Lab: [facility] [place] [facility] [address] [facility] [address] Performing Lab: [facility] [place] [facility] [address] [facility] [address] [facility] [place] [facility] CBC AND DIFF (AUTO) MCH [ENTITIC MASS] BY AUTOMATED COUNT 32.6 pg 26.2 - 32.6 03/24 Specimen Type: BLOOD No comment entered. Ordering Provider: EVELINA CONTRERAS Report Released Date/Time: Apr 03, 2023 09:31 AM Reporting Lab: [facility] [place] [facility] [address] [facility] [address] Performing Lab: [facility] [place] [facility] [address] [facility] [address] [facility] [place] [facility] CBC AND DIFF (AUTO) NEUTROPHILS /100 LEUKOCYTES IN BLOOD BY AUTOMATED COUNT 66.0 43.7 - 75.8 03/24 Specimen Type: BLOOD No comment entered. Ordering Provider: EVELINA CONTRERAS Report Released Date/Time: Apr 03, 2023 09:31 AM Reporting Lab: [facility] [place] [facility] [address] [facility] [address] Performing Lab: [facility] [place] [facility] [address] [facility] [address] [facility] [place] [facility] CBC AND DIFF (AUTO) LYMPHOCYTES /100 LEUKOCYTES IN BLOOD BY AUTOMATED COUNT 25.1 14.0 - 42.3 03/24 Specimen Type: BLOOD No comment entered. Ordering Provider: EVELINA CONTRERAS Report Released Date/Time: Apr 03, 2023 09:31 AM Reporting Lab: [facility] [place] [facility] [address] [facility] [phone] Performing Lab: [facility] [place] [facility] [address] [facility] [phone] [facility] [place] [facility] CBC AND DIFF (AUTO) MONOCYTES/1 00 LEUKOCYTES IN BLOOD BY AUTOMATED COUNT 7.6 5.1 - 13.7 03/24 Specimen Type: BLOOD No comment entered. Ordering Provider: EVELINA CONTRERAS Report Released Date/Time: Apr 03, 2023 09:31 AM Reporting Lab: [facility] [place] [address] [address] Performing Lab: [facility] [place] [address] [address] [facility] CBC AND DIFF (AUTO) EOSINOPHILS /100 LEUKOCYTES IN BLOOD BY AUTOMATED COUNT 0.5 0.4 - 6.8 03/24 Specimen Type: BLOOD No comment entered. Ordering Provider: EVELINA OCNTRERAS Report Released Date/Time: Apr 03, 2023 09:31 AM Reporting Lab: [facility] [place] [address] [address] Performing Lab: [facility] [place] [facility] [address] [facility] [address] [facility] CBC AND DIFF (AUTO) BASOPHILS/1 00 LEUKOCYTES IN BLOOD BY AUTOMATED COUNT 0.5 0.1 - 2.0 03/24 Specimen Type: BLOOD No comment entered. Ordering Provider: EVELINA CONTRERAS Report Released Date/Time: Apr 03, 2023 09:31 AM Reporting Lab: [facility] [place] [address] [address] Performing Lab: [facility] [place] [facility] [address] [facility] [address] [facility] CBC AND DIFF (AUTO) NEUTROPHILS [#/VOLUME] IN BLOOD BY AUTOMATED COUNT 4.15 10*3/u L 2.20 - 7.60 03/24 Specimen Type: BLOOD No comment entered. Ordering Provider: EVELINA CONTRERAS Report Released Date/Time: Apr 03, 2023 09:31 AM Reporting Lab: [facility] [place] [facility] [address] [facility] [address] Performing Lab: [facility] [place] [facility] [address] [facility] [address] [facility] CBC AND DIFF (AUTO) LYMPHOCYTES [#/VOLUME] IN BLOOD BY AUTOMATED COUNT 1.58 10*3/u L 1.00 - 3.20 03/24 Specimen Type: BLOOD No comment entered. Ordering Provider: EVELINA CONTRERAS Report Released Date/Time: Apr 03, 2023 09:31 AM Reporting Lab: [facility] [place] [facility] [address] [facility] [address] Performing Lab: [facility] [place] [facility] [address] [facility] [address] [facility] [place] [facility] CBC AND DIFF (AUTO) EOSINOPHILS [#/VOLUME] IN BLOOD BY AUTOMATED COUNT 0.03 10*3/u L 0.03 - 0.44 03/24 Specimen Type: BLOOD No comment entered. Ordering Provider: EVELINA CONTRERAS Report Released Date/Time: Apr 03, 2023 09:31 AM Reporting Lab: [facility] [place] [facility] [address] [facility] [address] Performing Lab: [facility] [place] [facility] [address] [facility] [address] [facility] [place] [facility] CBC AND DIFF (AUTO) BASOPHILS [#/VOLUME] IN BLOOD BY AUTOMATED COUNT 0.03 10*3/u L 0.01 - 0.13 03/24 Specimen Type: BLOOD No comment entered. Ordering Provider: EVELINA CONTRERAS Report Released Date/Time: Apr 03, 2023 09:31 AM Reporting Lab: [facility] [address] [facility] [address] Performing Lab: [facility] [address] [facility] [address] [facility] CBC AND DIFF (AUTO) IMMATURE GRANULOCYTE S/100 LEUKOCYTES IN BLOOD BY AUTOMATED COUNT 0.3 0.0 - 0.7 03/24 Specimen Type: BLOOD No comment entered. Ordering Provider: EVELINA CONTRERAS Report Released Date/Time: Apr 03, 2023 09:31 AM Reporting Lab: [facility] [address] [facility] [address] Performing Lab: [facility] [address] [address] [facility] CBC AND DIFF (AUTO) IMMATURE GRANULOCYTE S [#/VOLUME] IN BLOOD 0.02 10*3/u L 0.00 - 0.06 03/24 Specimen Type: BLOOD No comment entered. Ordering Provider: EVELINA CONTRERAS Report Released Date/Time: Apr 03, 2023 09:31 AM Reporting Lab: [facility] [address] [facility] [address] Performing Lab: [address] [address] [facility] HEMOGLOBI N A1C PANEL HEMOGLOBIN A1C/HEMOGLO BIN.TOTAL IN BLOOD BY HPLC 5.0 4.0 - 5.6 03/24 Specimen Type: BLOOD Comment: Values obtained from A1C measurement s can vary. For atypical A1C assays, a reported value of 7.0 could actually be between 6.72 and 7.28 if measured by a reference method. A reported value of 9.0 could actually be between 8.73 and 9.27. Ref: http://www. ngsp.org/[place] Pdata.asp Ordering Provider: EVELINA CONTRERAS Report Released Date/Time: Apr 03, 2023 09:31 AM Reporting Lab: [facility] [place] [facility] [address] [facility] [address] Performing Lab: [facility] TRN [facility] [address] [facility] [address] [facility] TRN [facility]USE [facility] TSH THYROTROPIN [UNITS/VOLU ME] IN SERUM OR PLASMA 3.15 u[IU]/ mL 0.35 - 5.00 03/24 Specimen Type: SERUM No comment entered. Ordering Provider: EVELINA CONTRERAS Report Released Date/Time: Apr 03, 2023 09:31 AM Reporting Lab: [facility]ITALRBAPTIST [facility]THN [facility] [address] [facility] [address] Performing Lab: [facility]OSPITALRUAB [facility] WESTTRN [facility] SYSTEMUSEN[facility] [address] [facility] [address] [facility] CALCIUM CALCIUM [MASS/VOLUM E] IN SERUM OR PLASMA 8.4 mg/dL 8.5 - 10.2 03/24 L Specimen Type: SERUM No comment entered. Ordering Provider: EVELINA CONTRERAS Report Released Date/Time: Apr 03, 2023 09:31 AM Reporting Lab: [facility]PITALRBAPTIST [facility] SOUTHN [facility]USENICH[facility] [address] [facility] [address] Performing Lab: [facility]ITALRL TRN [facility] SYSTEMUSETS [facility] [address] [facility] [address] [facility] SYSTEMUSE [facility] VITAMIN D (25-OH) 25-HYDROXYV ITAMIN D3 [MASS/VOLUM E] IN SERUM OR PLASMA 45 ng/mL 20 - 50 03/24 Specimen Type: SERUM No comment entered. Ordering Provider: EVELINA CONTRERAS Report Released Date/Time: Apr 03, 2023 09:31 AM Reporting Lab: [facility]OSPITALRUAB MEDICAL WESTTRN [facility] SYSTEMUSETS [facility] [address] [facility] [address] Performing Lab: [facility]ITALRL TRN [facility] SYSTEMUSETS [facility] [address] [facility] [address] [facility]ITALRBAPTIST [facility]OUTHN [facility]USE [facility] TRIGLYCER LAURA TRIGLYCERID E [MASS/VOLUM E] IN SERUM OR PLASMA 126 mg/dL 0 - 150 09/19 Specimen Type: SERUM No comment entered. Ordering Provider: EVELINA CONTRERAS Report Released Date/Time: Apr 03, 2023 09:31 AM Reporting Lab: [facility] [place] [facility] [address] [facility] [address] Performing Lab: [facility] [place] [facility] [address] [facility] [address] [facility] [place] [facility] MICROALBU MIN CREATININ E RATIO PANEL MICROALBUMI N/CREATININ E [MASS RATIO] IN URINE cancmg /g 0 - 29.9 03/12 Specimen Type: URINE No comment entered. Ordering Provider: EVELINA CONTRERAS Report Released Date/Time: March 08, 2023 10:25 AM Reporting Lab: [facility] [place] [facility] [address] [facility] [address] Performing Lab: [facility] [place] [facility] [address] [facility] [address] [facility] [place] [facility] MICROALBU MIN CREATININ E RATIO PANEL MICROALBUMI N [MASS/VOLUM E] IN URINE < 0.5mg/ dL 03/12 Specimen Type: URINE No comment entered. Ordering Provider: EVELINA CONTRERAS Report Released Date/Time: March 08, 2023 10:25 AM Reporting Lab: [facility] [place] [facility] [address] [facility] [address] Performing Lab: [facility] [place] [facility] [address] [facility] [address] [facility] [place] [facility] MICROALBU MIN CREATININ E RATIO PANEL CREATININE [MASS/VOLUM E] IN URINE 73.42 mg/dL 03/12 Specimen Type: URINE No comment entered. Ordering Provider: EVELINA CONTRERAS Report Released Date/Time: March 08, 2023 10:25 AM Reporting Lab: [facility] [place] [facility] [address] [facility] [address] Performing Lab: [facility] [place] [facility] [address] [facility] [address] [facility] Vital Signs Combined list of inpatient and outpatient Vital Signs from Department of Defense and Veterans Affairs, ranging from 12 months to all on record, depending upon the facility. Vital Sign Value Date Comments Source SYSTOLIC BLOOD PRESSURE 122 04/06/20 10:19:06 [facility] [place] [facility] DIASTOLIC BLOOD PRESSURE 74 04/06/2 024 10:19:06 [facility] [place] [facility] PULSE OXIMETRY 100 04/06/2024 10:19:06 [facility] [place] WEIGHT 145.6 04/06/2024 10:19:06 [facility] [place] [facility] BMI 24kg/m2 04/06/2024 10:19:06 [facility] [place] [facility] PAIN 0 04/06/2024 10:19:06 [facility] [place] [facility] HEIGHT 65 04/06/2024 10:19:06 [facility] [place] TEMPERATURE 97.1 04/06/2024 10:19:06 [facility] [place] [facility] PULSE 68 04/06/2024 10:19:06 [facility] [place] RESPIRATION 20 04/06/2024 10:19:06 [facility] [place] Encounters Combined list of: 1) Encounters from Department of Veterans Affairs facilities going back up to thelast 18 months. 2) Encounters from the Department of Defense facilities going back up to 280 months. Location Location Details Encounter Type Encounter Number Reason For Visit Attending Provider ADM Date DC Date Status Disposition Source [facility] Encounter [id number] MARY BETH [place] 04/09 [facility] Encounter [id number] 04/25 [facility] [place] Outpatient Encounter 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
DIANE,A POLINARIO 05/13 [place] [facility] Outpatient Encounter [id number] 06/04 [facility] [place] [facility] Outpatient Encounter [id number] BILLYJEAN PIERRE MOREIRAMYRIAM LEXY R 08/12 [facility] [place] [facility] [place] Outpatient Encounter [id number] 08/12 [facility] [place] [facility] [place] OFF[place] O/P EST MOD 30-39 MIN [id number] Diagnos is: ICD-10- CM R05.3 Chronic cough<b r/> DIANE,A POLINARIO 08/12 [place] O/P EST LOW 20-29 MIN [id number] Diagnos is: ICD-10- CM Z09 Encntr for f/u exam aft trtmt for cond oth than malig neoplm< br/> DIANE,A POLINARIO 08/22 [place] O/P EST MOD 30-39 MIN [id number] Diagnos is: ICD-10- CM E78.1 Pure hypergl yceride hali<br/ > DIANE,A POLINARIO 10/03 [place] OFF/OP EST MAY X REQ PHY/QHP [id number] Diagnos is: ICD-10- CM Z23 Encount er for immuniz ation<b r/> SHALINIL SOFIYA H 10/16 [place] O/P EST MOD 30 MIN [id number] Diagnos is: ICD-10- CM Z00.00 Encntr for general adult medical exam w/o abnorma l finding s
DIANE,A POLINARIO 04/06 [facility] ELECTROCAR DIOGRAM TRACING [id number] Diagnos is: ICD-10- CM I10 Essenti al (primar y) hyperte nsion<b r/> APURVA,NI CLAUDINE R 05/04 [facility] IELD [facility] ELECTROCAR DIOGRAM REPORT [id number] Diagnos is: ICD-10- CM Z13.6 Encount er for screeni ng for cardiov ascular disorde rs
Destiny MAXWELL ERILYN 05/04 [facility] [place] [facility] Outpatient Encounter [id number] 09/21 [facility] [place] [facility] Social History Combined list of available smoking, tobacco, and other social history from Department of Defense and Veterans Affairs facilities. Social History Type Response Date Comment Sourc e Tobacco smoking status [facility] FORMER USER 024 [facility] History of tobacco use ME-TOBACCO QUIT 1 5 YRS OR MORE 04/06/2024 [facility] History of tobacco use ME-TOBACCO NEVER USED 04/03/2023 [facility] History of tobacco use ME-TOBACCO NEVER USED 03/29/2022 [facility] Plan of Care List of future care activities from [facility] facilities. Additional future care activities may be listed in the Assessment and Plan section. Date/Time Care Activity Care Activity Detail Facili ty 04/05/2025 AMBULATORY - MEDICINE AMBULATORY - MEDICI [facility] Advance Directives List of completed, amended, or rescinded Advance Directives on record at Department of Veterans Affairs facilities. An actual copy of the Directive is not included. Date Advance Directive Provider Source 03/29/2022 [facility]
[2024-10-23 08:38] VITALS: BP 110/70; PULSE 58; O2SAT 98; BMI 24.3
--- NOTE | 2024-10-23 08:38 | MHC.PC.OV ---
Vital Signs 10/23/24 08:38 Height 5 ft 5 in Weight 146 lb BMI 24.3 BP 110/70 Blood Pressure Location Lt brachial Position Sitting Pulse 58 Pulse Source Pulse Oximeter Pulse Oximetry (%) 98 Oxygen Delivery Method Room Air Intake Visit Reasons: cholesterol Nut Dehydrator Operator Required: No Accompanied by: Self / Same As Patient Allergies naproxen [Aleve] Allergy (Unknown, Verified 10/23/24 08:40) nausea and vomiting Tobacco use date assessed: 10/23/24 Fall risk assessment: No Falls in past year Last assessed Fall Risk: 10/23/24 Dental Screening Dental Screen Date: 10/23/24 Did you have a dental visit in the last 12 months?: Yes Did you have a dental problem in the last 6 months where you did not have access to dental care?: No Was dental information given to patient?: Patient has dentist HPI cholesterol HPI Details The patient is an 84-year-old male presenting for a wellness visit and follow-up on cholesterol management.relates to me that his brother had open hear surgery, though his cholesterol levels were not the causal factor. The primary culprit was identified as elevated triglyceride levels at that time. He is currently on cholesterol-lowering medication, adhering to a nighttime administration schedule without reporting any issues. Recent blood work shows total cholesterol at 134, triglycerides at 107, and LDL (bad cholesterol) reduced from 89 to 71, meeting the target of below 70. HDL (good cholesterol) remains low at 42, with a goal of above 50, and lifestyle modifications were encouraged to address this. The patient experienced two episodes this year of differential color changes in his feet?redness in one foot and paleness in the other. These episodes were not associated with pain, swelling, or other symptoms and resolved without intervention. He maintains a physically active lifestyle, walking two miles, four to five times per week. He recently received vaccinations for influenza and RSV, and queries about protection against COVID-19 and appropriate antiviral treatments should he contract the virus. Additionally, he expressed a lack of knowledge regarding the timing of his last tetanus immunization. [facility] Medical History (Updated 06/22/24 @ 09:20 by Maribell Jacinto MD) PAD (peripheral artery disease) Primary osteoarthritis of right knee Osteoarthritis of right knee Ganglion cyst of wrist Surgical History History of knee replacement procedure of left knee History of knee replacement procedure of right knee Hx of colonoscopy History of blepharoplasty History of lumbar surgery H/O wrist surgery History of inguinal hernia repair Status post total left knee replacement (~06/27/20) Family History Father No problems noted. Mother Diabetes Social History (Updated 06/22/24 @ 09:01 by Maribell Jacinto MD) Housing: House Are you a primary technical healthcare consultant to a significant other at home: No Do you presently have visiting nurse or other home services: No Alcohol intake: never Patient Tobacco Use Status: Former Tobacco user Tobacco use type: Cigarette Years Smoked: quit 26 years old e-Cigarette/Vaping Use: Never Used Second Hand Smoke Exposure: No Advance Directives Date on File: 07/27/20 service: Yes Current occupational status: retired Current occupation: Right Handed Cognitive needs: No Hearing needs: No Vision needs: Yes Questionnaire PHQ-9 Over the last 2 weeks, how often have you been bothered by any of the following problems? 1. Little interest or pleasure in doing things: not at all 2. Feeling down, depressed, or hopeless: not at all 3. Trouble falling or staying asleep, or sleeping too much: not at all 4. Feeling tired or having little energy: not at all 5. Poor appetite or overeating: not at all 6. Feeling bad about yourself - or that you are a failure or have let yourself or your family down: not at all 7. Trouble concentrating on things, such as reading the newspaper or watching television: not at all 8. Moving or speaking so slowly that other people could have noticed. Or the opposite - being so fidgety or restless that you have been moving around a lot more than usual: not at all 9. Thoughts that you would be better off or of hurting yourself in some way: not at all Total score: 0 Source: Developed by Drs. Roni Amaya, Maricruz Farah, Denzel Easton and colleagues, with an educational keri from [employer]. Thrive Questionnaire Date Thrive assessed: 10/23/24 I am a: Patient What is your living situation today?: I have a steady place to live Within the past 12 months, did the food you bought not last and you didn't have the money to get more?: Never true Within the past 12 months, did you worry whether your food would run out before you got money to buy more?: Never true Do you have trouble paying for medicines?: No Do you have trouble getting transportation to medical appointments?: No Do you have trouble paying your heating and electricity bill?: No Do you have trouble taking care of your child, family member or friend?: No Do you have trouble with day-to-day activities such as bathing, preparing meals, shopping, managing finances, etc.?: No Are you currently unemployed and looking for a job?: No Are you interested in more education?: No Please select the resources that you would like help with: None Currently or been in a relationship where the following occur: I choose not to answer THRIVE Score: 0 AUDIT C Alcohol Use Questionnaire (AUDIT-C) 1. How often do you have a drink containing alcohol?: Never Total Score: 0 MAYRA-7 AMB Questionnaire MAYRA-7 Date MAYRA - 7 assessed: 10/23/24 Feeling nervous, anxious, or on edge: 0 = Not at all Not being able to stop or control worryin = Not at all Worrying too much about different things: 0 = Not at all Trouble relaxin = Several days Being so restless that it is hard to sit still: 0 = Not at all Becoming easily annoyed or irritable: 0 = Not at all Feeling afraid as if something awful might happen: 0 = Not at all Total MAYRA-7 score (0-4 normal; 5-9 mild; 10-14 moderate; 15-21 severe): 0 Source: Developed by Drs. Roni Amaya, Maricruz Farah, Denzel Easton and colleagues, with an educational keri from [employer]. Physical exam (Primary Care) Vital Signs: Last Vital Signs Pulse 58 10/23/24 08:38 BP 110/70 10/23/24 08:38 Pulse Ox 98 10/23/24 08:38 Oxygen Delivery Method Room Air 10/23/24 08:38 BMI result Body Mass Index 24.3 Tobacco/Smoking Status: Tobacco use Status Tobacco use date assessed 10/23/24 10/23/24 08:42 Patient Tobacco Use Status Former Tobacco user 10/23/24 08:42 Tobacco use type Cigarette 10/23/24 08:42 e-Cigarette/Vaping Use Never Used 10/23/24 08:42 Thrive Assessment: Date of Thrive Assessment Date Thrive assessed 10/23/24 10/23/24 08:42 Currently or been in a relationship where the following occur: I choose not to answer Const General: alert; No acute distress Eyes Conjunctivae: conjunctivae normal Resp Auscultation: clear to auscultation bilaterally Cardio Rate: regular rate Rhythm: regular rhythm GI Inspection: Yes normal to inspection Extrem General: Yes normal to inspection and No edema Coding Level of Care Code Est Pt Level 4 (15434) Diagnoses Hypercholesterolemia E78.00 Atherosclerosis of arteries I70.90 Assessment & Plan Assessment & Plan (1) Hypercholesterolemia: Code(s): E78.00 - Pure hypercholesterolemia, unspecified Category: Medical (2) Atherosclerosis of arteries: Code(s): I70.90 - Unspecified atherosclerosis Category: Medical Plan - Hyperlipidemia and Atherosclerosis: Continue current low-dose cholesterol medication, increasing prescription to 90 tablets for patient convenience. Encourage lifestyle modifications to improve HDL levels, including increased physical activity and dietary adjustments focusing on plant-based proteins. - Circulatory concern: Since intermittent foot discoloration is not presently accompanied by other symptoms, continue to monitor. Reassess if episodes recur or symptoms worsen. - Vaccinations: Ensure regular vaccinations, including consideration of timing for tetanus booster. Maintain current influenza and RSV vaccinations and assess risk for COVID-19, with readiness to provide antiviral treatment if needed. - Health Maintenance and Preventive Care: Advise on adequate hydration, increased consumption of vegetables and fish over red meats, and continued physical activity. Caution regarding large gatherings due to potential COVID-19 exposure, utilize patient portal for ongoing communication and management. Medications: Refilled simvastatin 5 mg PO BEDTIME 90 tabs 2RF I70.90 - Unspecified atherosclerosis
== END 2024-10-23 08:55 | disposition home or self-care (01) ==
PROVIDERS: PCP Internal Medicine; Visit Provider Internal Medicine
DX: E78.00 Pure hypercholesterolemia, unspecified (principal); I70.90 Unspecified atherosclerosis

== ENCOUNTER → 2024-10-23 08:19 | Outpatient (BNVA) | payer MEDICARE, SELFPAY | PROVIDERS: PCP Internal Medicine; Visit Provider Internal Medicine | DX: E78.00 Pure hypercholesterolemia, unspecified (principal); I70.90 Unspecified atherosclerosis | CPT/HCPCS: 99212 ==

== ENCOUNTER 2024-10-26 13:26 | Outpatient (AMB) | payer MEDICARE, SELFPAY ==
--- NOTE | 2024-10-26 13:27 | A.OFFPC_ITS ---
Intake Visit Reasons: COVID Pos. Allergies naproxen [Aleve] Allergy (Unknown, Verified 10/26/24 13:27) nausea and vomiting Tobacco use date assessed: 10/26/24 Fall risk assessment: No Falls in past year Last assessed Fall Risk: 10/26/24 Dental Screening Dental Screen Date: 10/26/24 Did you have a dental visit in the last 12 months?: Yes Did you have a dental problem in the last 6 months where you did not have access to dental care?: No Was dental information given to patient?: Patient has dentist HPI COVID Pos. HPI Details 2 days ago cough, myalgia, , fevers, mi ld sore throat today is better test saturday and positive. advised to hold off med. The patient is an 84-year-old male presenting with symptoms associated with COVID-19. The onset of severe symptoms began on Saturday with significant coughing and fever. The patient reports that his condition was very poor at that time, leading him to take a COVID-19 test, which returned a positive result. Yesterday, the patient described having a lot of coughing and a mild sore throat, both attributed to the persistent coughing. However, the patient notes improvement today, with the absence of fever and feeling generally better. No antiviral treatment has been initiated as the patient's symptoms are showing improvement. The patient was anxious about his condition on Saturday, prompting message-based contact. Current management includes isla-sgw-rwjbirm medications such as Tylenol for symptomatic relief and Mucinex for productive cough. - Respiratory: Reports cough, sore throa t - General: Reports fever (yesterday) - General: Denies current fever [facility] Medical History PAD (peripheral artery disease) Primary osteoarthritis of right knee Osteoarthritis of right knee Ganglion cyst of wrist Surgical History History of knee replacement procedure of left knee History of knee replacement procedure of right knee Hx of colonoscopy History of blepharoplasty History of lumbar surgery H/O wrist surgery History of inguinal hernia repair Status post total left knee replacement (~06/27/20) Family History Father No problems noted. Mother Diabetes Social History Housing: House Are you a primary healthcare administration intern to a significant other at home: No Do you presently have visiting nurse or other home services: No Alcohol intake: never Patient Tobacco Use Status: Former Tobacco user Tobacco use type: Cigarette Years Smoked: quit 26 years old e-Cigarette/Vaping Use: Never Used Second Hand Smoke Exposure: No Advance Directives Date on File: 07/27/20 service: Yes Current occupational status: retired Current occupation: Right Handed Cognitive needs: No Hearing needs: No Vision needs: Yes Questionnaire PHQ-9 Over the last 2 weeks, how often have you been bothered by any of the following problems? 1. Little interest or pleasure in doing things: not at all 2. Feeling down, depressed, or hopeless: not at all 3. Trouble falling or staying asleep, or sleeping too much: not at all 4. Feeling tired or having little energy: not at all 5. Poor appetite or overeating: not at all 6. Feeling bad about yourself - or that you are a failure or have let yourself or your family down: not at all 7. Trouble concentrating on things, such as reading the newspaper or watching television: not at all 8. Moving or speaking so slowly that other people could have noticed. Or the opposite - being so fidgety or restless that you have been moving around a lot more than usual: not at all 9. Thoughts that you would be better off or of hurting yourself in some way: not at all Total score: 0 Source: Developed by Drs. Roni Amaya, Maricruz Farah, Denzel Easton and colleagues, with an educational keri from [employer]. Thrive Questionnaire Date Thrive assessed: 10/23/24 I am a: Patient What is your living situation today?: I have a steady place to live Within the past 12 months, did the food you bought not last and you didn't have the money to get more?: Never true Within the past 12 months, did you worry whether your food would run out before you got money to buy more?: Never true Do you have trouble paying for medicines?: No Do you have trouble getting transportation to medical appointments?: No Do you have trouble paying your heating and electricity bill?: No Do you have trouble taking care of your child, family member or friend?: No Do you have trouble with day-to-day activities such as bathing, preparing meals, shopping, managing finances, etc.?: No Are you currently unemployed and looking for a job?: No Are you interested in more education?: No Please select the resources that you would like help with: None Currently or been in a relationship where the following occur: I choose not to answer THRIVE Score: 0 AUDIT C Alcohol Use Questionnaire (AUDIT-C) 1. How often do you have a drink containing alcohol?: Never 3. How often do you have six or more drinks on one occasion?: Never Total Score: 0 MAYRA-7 AMB Questionnaire MAYRA-7 Date MAYRA - 7 assessed: 10/23/24 Feeling nervous, anxious, or on edge: 0 = Not at all Not being able to stop or control worryin = Not at all Worrying too much about different things: 0 = Not at all Trouble relaxin = Several days Being so restless that it is hard to sit still: 0 = Not at all Becoming easily annoyed or irritable: 0 = Not at all Feeling afraid as if something awful might happen: 0 = Not at all Total MAYRA-7 score (0-4 normal; 5-9 mild; 10-14 moderate; 15-21 severe): 1 Source: Developed by Drs. Roni Amaya, Maricruz Farah, Denzel Easton and colleagues, with an educational keri from [employer]. Physical exam (Primary Care) Tobacco/Smoking Status: Tobacco use Status Tobacco use date assessed 10/26/24 10/26/24 13:28 Patient Tobacco Use Status Former Tobacco user 10/26/24 13:28 Tobacco use type Cigarette 10/26/24 13:28 e-Cigarette/Vaping Use Never Used 10/26/24 13:28 PHQ-9: PHQ-9 Score PHQ-9: Total score 0 10/26/24 13:28 Thrive Assessment: Date of Thrive Assessment Date Thrive assessed 10/23/24 10/26/24 13:28 Currently or been in a relationship where the following occur: I choose not to answer Telehealth Telehealth Telehealth Platform: Telephone Location of provider rendering services: practice address Location of patient: address on file Patient Identification confirmed using: Name, : Yes Telehealth method: voice only Patient verbally consented to treatment: Yes Patient verbally consented to billing insurance company: Yes Patient informed of any privacy concerns related to visit: Yes Minutes spent on Phone/Video with Pt.: 15 Coding Level of Care Code Tele Est Pt Level 3 (70590) Diagnoses COVID-19 virus infection U07.1 Assessment & Plan Assessment & Plan (1) COVID-19 virus infection: Comment: 10/24/2024 Code(s): U07.1 - COVID-19 Category: Medical Plan: For the sore throat can take Cepacol lozenges, discussed about Delsym to help with dry cough so she can rest and advised to increase oral fluids. Patient also can take Tylenol for chills and fever. Patient declined taking the antiviral as the patient is getting better Plan - COVID-19 Infection: Consider antiviral medication if symptoms worsen. The patient is advised to hold cholesterol medication while on antiviral therapy if started. - Symptom Management: Recommend Tylenol for fever and general aches. Advise [id number]-rqtmtwh Delsym for dry cough and Mucinex if cough is productive. Cepacol lozenges are suggested for throat discomfort. During the discussion, I addressed the patient's COVID-19 diagnosis and evaluated the necessity for antiviral therapy based on current symptoms and their progression. The patient expressed feeling better today and elected to hold off on antiviral medication unless symptoms worsen. I explained the need to withhold cholesterol medication during antiviral treatment due to potential interactions. Additionally, I advised on supportive care measures, including hydration and specific xqxo-gcy-wxxsdun medications suited for his symptoms. Return precautions were provided, with instructions to reach out if symptoms deteriorate or if antiviral treatment is reconsidered. We discussed the option of antiviral medication to potentially mitigate the risk of prolonged symptoms, and I assured the patient of my availability for further consultation if needed.
--- OUTSIDE RECORDS SUMMARY | 2024-10-26 16:16 | XMS_ITS | Continuity of Care Document ---
Author Name [facility] Organization [facility] Care Team Providers Care Funeral Limousine Driver Name Role Phone [facility] Unavailable Unavailable Problems Combined list of problems from Department of Defense and Veterans Affairs facilities. It does not include entries that were removed or entered in error. Problem Status Onset Date Problem Type Date of Resolution Comments Source CoManagement Active Condition Apr 03, 2023 Entered By: LUCY CONTRERAS Comment: Dr. Jacinto MCDONOUGH Cramp in muscle Active Condition Mar 29, 2022 Entered By: SHANTA MONROE Comment: Right thigh MCDONOUGH Degeneration of lumbosacral intervertebral disc Active Condition [place] Family history of hypertension Active Condition Mar 29, 2022 Entered By: SHANTA MONROE Comment: Brother, mother, sister MCDONOUGH Family history: Alzheimer's disease Active Condition Mar 29, 2022 Entered By: SHANTA MONROE Comment: Brother, sister M[place] Family history: Diabetes mellitus Active Condition Mar 29 Entered By: SHANTA MONROE Comment: Brother, mother, sister [place] H/O: multiple allergies Active Condition Apr 03, 2023 Entered By: LUCY CONTRERAS Comment: on monthly immunotheraphy [place] History of inguinal hernia surgery Active Condition Mar 29, 2022 Entered By: SHANTA MONROE Comment: Left [place] History of lumbar laminectomy Active Condition [place] History of total knee replacement of both knees Active Condition [place] Osteoporosis Active Condition May 13, 2023 Entered By: LUCY CONTRERAS Comment: bisphosphonate tx initiated 04/2023 (-04/2028)May 13, 2023 Entered By: LUCY CONTRERAS Comment: DXA repeat 04/2025 [place] Triglyceride level - finding Active Condition [facility] Wrist surgery Active Condition Mar Entered By: SHANTA MONROE Comment: Right [facility] Diagnosis: ICD-10-CM Z13.6 Encounter for screening for cardiovascular disorders Active Diagnosis [facility] Diagnosis: ICD-10-CM I10 Essential (primary) hypertension Active Diagnosis [facility] Diagnosis: ICD-10-CM Z00.00 Encntr for general adult medical exam w/o abnormal findings Active Diagnosis [place] Diagnosis: ICD-10-CM Z23 Encounter for immunization Active Diagnosis [facility] Diagnosis: ICD-10-CM E78.1 Pure hyperglyceridemia Active Diagnosis [facility] [place] Diagnosis: ICD-10-CM Z09 Encntr for f/u exam aft trtmt for cond oth than malig neoplm Active Diagnosis [place] Diagnosis: ICD-10-CM R05.3 Chronic cough Active Diagnosis [place] Diagnosis: ICD-10-CM M81.0 Age-related osteoporosis w/o current pathological fracture Active Diagnosis [facility] Medications Combined list of outpatient medications from [...] DRINK FOR 30 MINUTES) ORAL ACTIVE 04/07/2025 [id number] ERMELINDA CONTRERAS O 2023 12 [facility] [place] ALENDRONATE 70MG TAB TAKE ONE TABLET BY MOUTH ONCE A WEEK FOR OSTEOPOR OSIS (TAKE WITH A FULL GLASS OF WATER; REMAIN UPRIGHT FOR 30 MINUTES; NO FOOD OR DRINK FOR 30 MINUTES) ORAL DISCONT INUED 05/13/2024 [id number] ERMELINDA CONTRERAS O 2022 12 [facility] [place] AZITHROMYCI N 250MG TAB TAKE TWO TABLETS BY MOUTH NOW FOR 1 DAY, THEN TAKE ONE TABLET ONCE DAILY FOR 4 DAYS ORAL 09/11/2023 [id number] 3 ERMELINDA CONTRERAS O 2022 6 [place] BENZONATATE 100MG CAP TAKE ONE CAPSULE BY MOUTH THREE TIMES DAILY NEEDED FOR COUGH ORAL 09/11/2023 [id number] 3 DIANETAWANA FISHERLINARI O 2022 21 [place] CALCIUM 500MG (CA CARBONATE-1 .25GM) TAB TAKE TWO TABLETS BY MOUTH ONCE DAILY FOR OSTEOPOR OSIS ORAL 05/13/2024 [id number] 4 DIANE, APOLINARI O 2022 180 [place] CHOLECALCIF ARLETTE 50MCG (2,000UNIT) TAB TAKE ONE TABLET BY MOUTH ONCE DAILY FOR OSTEOPOR OSIS FOR VITAMIN SUPPLEME NTATION ORAL 05/13/2024 [id number] 4 DIANE, APOLINARI O 2022 90 [place] FISH OIL 1000MG (500MG DHA/EPA) CAP,ORAL TAKE ONE CAPSULE BY MOUTH ONCE DAILY ORAL 04/03/2024 [id number] 3 DIANE, APOLINARI O 2022 100 [place] THROAT LOZENGE W/BENZOCAIN E,MENTHOL (SF) DISSOLVE 1 LOZENGE BY MOUTH FIVE TIMES A DAY FOR SORE THROAT ORAL 09/11/2023 [id number] DIANE, APOLINARI O 2022 32 [place] [...] Site Reaction Lot Number CVX Code Drug Instructional Technologist Status Comments Source COVID-19 (MODERNA), MRNA, LNP-S, PF, 50 MCG/0.5 ML (AGES 12+ YEARS) 2023 MAURA LOYA RIGHT DELTO ID [id number] complet ed [place] RSV, BIVALENT, PROTEIN SUBUNIT RSVPREF, DILUENT RECONSTITUTED , 0.5 ML, PF 2023 MAURA LOYA H LEFT DELTO ID [id number] 305 complet ed [place] PNEUMOCOCCAL CONJUGATE PCV20, POLYSACCHARID E POS718 CONJUGATE, ADJUVANT, PF 2022 ELENA WIGGINS LEFT DELTO ID [id number] 216 complet ed [place] TDAP 2022 [...] Apr 03, 2023 09:31 AM Reporting Lab: [facility] [address] [facility] [address] Performing Lab: [facility]N [facility] [address] [facility] BASIC METABOLIC PANEL (fasting) GLUCOSE [MASS/VOLUM E] IN SERUM OR PLASMA 81 mg/dL 65 - 100 03/24 Specimen Type: SERUM No comment entered. Ordering Provider: EVELINA CONTRERAS Report Released Date/Time: Apr 03, 2023 09:31 AM Reporting Lab: [facility] [address] [address] Performing Lab: [facility] [address] [facility] BASIC METABOLIC PANEL (fasting) SODIUM [MOLES/VOLU ME] IN SERUM OR PLASMA 135 mmol/L 135 - 145 03/24 Specimen Type: SERUM No comment entered. Ordering Provider: EVELINA CONTRERAS Report Released Date/Time: Apr 03, 2023 09:31 AM Reporting Lab: [facility] [address] [address] Performing Lab: [facility]SONRRIVERVIEW REGION[facility] CENTERTRN [facility]USE[address] [address] [facility] BASIC METABOLIC PANEL (fasting) POTASSIUM [MOLES/VOLU ME] IN SERUM OR PLASMA 4.1 mmol/L 3.5 - 5.0 03/24 Specimen Type: SERUM No comment entered. Ordering Provider: EVELINA CONTRERAS Report Released Date/Time: Apr 03, 2023 09:31 AM Reporting Lab: [facility]N [facility] [address] Performing Lab: [facility]SONRL [place] [facility] [address] [facility] [address] [facility] JACKSONRL W[facility]N [facility]OSPITALUSE [facility] BASIC METABOLIC PANEL (fasting) CHLORIDE [MOLES/VOLU ME] IN SERUM OR PLASMA 104 mmol/L 100 - 110 03/24 Specimen Type: SERUM No comment entered. Ordering Provider: EVELINA CONTRERAS Report Released Date/Time: Apr 03, 2023 09:31 AM Reporting Lab: [facility] [place] [facility] [address] [facility] [address] Performing Lab: [facility] JACKSONRL W[facility]N [facility]ITALUSEJ[facility] [address] [facility] [address] [facility] JACKSONRRIVERVIEW REGIONAL MEDICAL CENTERTRN [facility]OSPITALUSE [facility] BASIC METABOLIC PANEL (fasting) CARBON DIOXIDE, TOTAL [MOLES/VOLU ME] IN SERUM OR PLASMA 26 meq/L 20 - 30 03/24 Specimen Type: SERUM No comment entered. Ordering Provider: EVELINA CONTRERAS Report Released Date/Time: Apr 03, 2023 09:31 AM Reporting Lab: [facility]SONRL [facility] [address] [facility] [address] Performing Lab: [facility] JACKSONRL W[facility]N [facility]PITALUSEJ[facility] [address] [facility] [address] [facility] JACKSONRL TRN [facility] BASIC METABOLIC PANEL (fasting) CREATININE [MASS/VOLUM E] IN SERUM OR PLASMA 0.80 mg/dL 0.50 - 1.40 03/24 Specimen Type: SERUM No comment entered. Ordering Provider: EVELINA CONTRERAS Report Released Date/Time: Apr 03, 2023 09:31 AM Reporting Lab: [facility] [place] [facility] [address] [facility] [address] Performing Lab: [place] [facility] [facility] [address] [facility] [address] [facility]SONRL W[facility]N [facility]OSPITALUSE [facility] BASIC METABOLIC PANEL (fasting) GLOMERULAR FILTRATION RATE/1.73 SQ M.PREDICTED [VOLUME RATE/AREA] IN SERUM, PLASMA OR BLOOD BY CREATININE- BASED FORMULA (CKD-EPI 2020) 88 mL/min 60 03/24 Specimen Type: SERUM No comment entered. Ordering Provider: EVELINA CONTRERAS Report Released Date/Time: Apr 03, 2023 09:31 AM Reporting Lab: [facility] [place] [facility] [address] [facility] [address] Performing Lab: [facility] [place] [facility] [address] [facility] [address] [facility] [place] [facility] LIPID PANEL FASTING CHOLESTEROL [MASS/VOLUM E] IN SERUM OR PLASMA 135 mg/dL 03/24 Specimen Type: SERUM No comment entered. Ordering Provider: EVELINA CONTRERAS Report Released Date/Time: Apr 03, 2023 09:31 AM Reporting Lab: [facility] [place] [facility] [address] [facility] [address] Performing Lab: [place] [facility] [place] [facility] [address] [facility] [address] [facility]SONRL [facility] [place] [facility] LIPID PANEL FASTING TRIGLYCERID E [MASS/VOLUM E] IN SERUM OR PLASMA 111 mg/dL 0 - 150 03/24 Specimen Type: SERUM No comment entered. Ordering Provider: EVELINA CONTRERAS Report Released Date/Time: Apr 03, 2023 09:31 AM Reporting Lab: [facility] [place] [facility] [address] [facility] [address] Performing Lab: [facility] [place] [facility] [address] [facility] [address] [facility] [place] [facility] LIPID PANEL FASTING CHOLESTEROL IN LDL [MASS/VOLUM E] IN SERUM OR PLASMA BY CALCULATION 77 mg/dL 0 - 129 03/24 Specimen Type: SERUM No comment entered. Ordering Provider: EVELINA CONTRERAS Report Released Date/Time: Apr 03, 2023 09:31 AM Reporting Lab: [facility] [place] [facility] [address] [facility] [address] Performing Lab: [facility] [place] [facility] [address] [facility] [address] [facility]RL [facility] [place] [facility] LIPID PANEL FASTING CHOLESTEROL .TOTAL/CHOL ESTEROL IN HDL [MASS RATIO] IN SERUM OR PLASMA 3.8 06/11 /2024 Specimen Type: SERUM No comment entered. Ordering Provider: EVELINA CONTRERAS Report Released Date/Time: Apr 03, 2023 09:31 AM Reporting Lab: [facility] [place] [facility] [address] [facility] [address] Performing Lab: [facility] [place] [facility] [address] [facility] [address] [facility] [place] [facility] LIPID PANEL FASTING CHOLESTEROL IN HDL [MASS/VOLUM E] IN SERUM OR PLASMA 36 mg/dL 40 - 60 03/24 L Specimen Type: SERUM No comment entered. Ordering Provider: EVELINA CONTRERAS Report Released Date/Time: Apr 03, 2023 09:31 AM Reporting Lab: [facility] [place] [facility] [address] [facility] [address] Performing Lab: [facility] [place] [facility] [address] [facility] [address] [facility] [place] [facility] LIVER FUNCTION PROTEIN [MASS/VOLUM E] IN SERUM OR PLASMA 6.8 g/dL 6.0 - 8.3 03/24 Specimen Type: SERUM No comment entered. Ordering Provider: EVELINA CONTRERAS Report Released Date/Time: Apr 03, 2023 09:31 AM Reporting Lab: [facility] [place] [facility] [address] [facility] [address] Performing Lab: [facility] [place] [facility] [address] [facility] [address] [facility] [place] [facility] LIVER FUNCTION ALBUMIN [MASS/VOLUM E] IN SERUM OR PLASMA 3.8 g/dL 3.5 - 5.0 03/24 Specimen Type: SERUM No comment entered. Ordering Provider: EVELINA CONTRERAS Report Released Date/Time: Apr 03, 2023 09:31 AM Reporting Lab: [facility] [place] [facility] [address] [facility] [address] Performing Lab: [facility] [place] [facility] [address] [facility] [address] [facility]SONRL [facility] [place] [facility] LIVER FUNCTION ALKALINE PHOSPHATASE [ENZYMATIC ACTIVITY/VO LUME] IN SERUM OR PLASMA 61 U/L 40 - 150 03/24 Specimen Type: SERUM No comment entered. Ordering Provider: EVELINA CONTRERAS Report Released Date/Time: Apr 03, 2023 09:31 AM Reporting Lab: [facility] [place] [facility] [address] [facility] [address] Performing Lab: [facility] [place] [facility] [address] [facility] [address] [facility] [place] [facility] LIVER FUNCTION ASPARTATE AMINOTRANSF ERASE [ENZYMATIC ACTIVITY/VO LUME] IN SERUM OR PLASMA 23 U/L 5 - 34 03/24 Specimen Type: SERUM No comment entered. Ordering Provider: EVELINA CONTRERAS Report Released Date/Time: Apr 03, 2023 09:31 AM Reporting Lab: [facility] [place] [facility] [address] [facility] [address] Performing Lab: [facility] [place] [facility] [address] [facility] [address] [facility] [place] [facility] LIVER FUNCTION ALANINE AMINOTRANSF ERASE [ENZYMATIC ACTIVITY/VO LUME] IN SERUM OR PLASMA 22 U/L 03/24 Specimen Type: SERUM No comment entered. Ordering Provider: EVELINA CONTRERAS Report Released Date/Time: Apr 03, 2023 09:31 AM Reporting Lab: [facility] [place] [facility] [address] [facility] [address] Performing Lab: [facility] [place] [facility] [address] [facility] [address] [facility] [place] [facility] LIVER FUNCTION BILIRUBIN.T OTAL [MASS/VOLUM E] IN SERUM OR PLASMA 0.8 mg/dL 0.2 - 1.2 03/24 Specimen Type: SERUM No comment entered. Ordering Provider: EVELINA CONTRERAS Report Released Date/Time: Apr 03, 2023 09:31 AM Reporting Lab: [facility] [place] [facility] [address] [facility] [address] Performing Lab: [facility] [place] [facility] [address] [facility] [address] [facility] [place] [facility] CBC AND DIFF (AUTO) LEUKOCYTES [#/VOLUME] IN BLOOD BY AUTOMATED COUNT 6.29 10*3/u L 4.50 - 11.00 03/24 Specimen Type: BLOOD No comment entered. Ordering Provider: EVELINA CONTRERAS Report Released Date/Time: Apr 03, 2023 09:31 AM Reporting Lab: [facility] [place] [facility] [address] [facility] [address] Performing Lab: [facility] [place] [facility] [address] [facility] [address] [facility] [place] [facility] CBC AND DIFF (AUTO) ERYTHROCYTE S [#/VOLUME] IN BLOOD BY AUTOMATED COUNT 4.35 10*6/u L 4.23 - 5.66 03/24 Specimen Type: BLOOD No comment entered. Ordering Provider: EVELINA CONTRERAS Report Released Date/Time: Apr 03, 2023 09:31 AM Reporting Lab: [facility] [place] [facility] [address] [facility] [address] Performing Lab: [facility] [place] [facility] [address] [facility] [address] [facility] [place] [facility] CBC AND DIFF (AUTO) HEMOGLOBIN [MASS/VOLUM E] IN BLOOD 14.2 g/dL 12.8 - 17 03/24 Specimen Type: BLOOD No comment entered. Ordering Provider: EVELINA CONTRERAS Report Released Date/Time: Apr 03, 2023 09:31 AM Reporting Lab: [facility] [place] [facility] [address] [facility] [address] Performing Lab: [facility] [place] [facility] [address] [facility] [address] [facility] [place] [facility] CBC AND DIFF (AUTO) HEMATOCRIT [VOLUME FRACTION] OF BLOOD BY AUTOMATED COUNT 42.0 39.2 - 50.4 03/24 Specimen Type: BLOOD No comment entered. Ordering Provider: EVELINA CONTRERAS Report Released Date/Time: Apr 03, 2023 09:31 AM Reporting Lab: [facility] [facility] [address] [facility] [address] Performing Lab: [facility] [place] [facility] [address] [facility] [address] [facility] [place] [facility] CBC AND DIFF (AUTO) MCV [ENTITIC VOLUME] BY AUTOMATED COUNT 96.6 fL 82 - 99 03/24 Specimen Type: BLOOD No comment entered. Ordering Provider: EVELINA CONTRERAS Report Released Date/Time: Apr 03, 2023 09:31 AM Reporting Lab: [facility] [facility] [address] [facility] [address] Performing Lab: [facility] [place] [facility] [address] [facility] [address] [facility] [place] [facility] CBC AND DIFF (AUTO) MCHC [MASS/VOLUM E] BY AUTOMATED COUNT 33.8 g/dL 30.8 - 35.1 03/24 Specimen Type: BLOOD No comment entered. Ordering Provider: EVELINA CONTRERAS Report Released Date/Time: Apr 03, 2023 09:31 AM Reporting Lab: [facility] [place] [facility] [address] [facility] [address] Performing Lab: [facility] [place] [facility] [address] [facility] [address] [facility] [place] [facility] CBC AND DIFF (AUTO) PLATELETS [#/VOLUME] IN BLOOD BY AUTOMATED COUNT 207 10*3/u L 140 - 360 03/24 Specimen Type: BLOOD No comment entered. Ordering Provider: EVELINA CONTRERAS Report Released Date/Time: Apr 03, 2023 09:31 AM Reporting Lab: [facility] [place] [facility] [address] [facility] [address] Performing Lab: [facility] [place] [facility] [address] [facility] [address] [facility] [place] [facility] CBC AND DIFF (AUTO) ERYTHROCYTE DISTRIBUTIO N WIDTH [RATIO] BY AUTOMATED COUNT 12.8 12.0 - 16.0 03/24 Specimen Type: BLOOD No comment entered. Ordering Provider: EVELINA CONTRERAS Report Released Date/Time: Apr 03, 2023 09:31 AM Reporting Lab: [facility] [place] [facility] [address] [facility] [address] Performing Lab: [facility] [place] [facility] [address] [facility] [address] [facility] [place] [facility] CBC AND DIFF (AUTO) MONOCYTES [#/VOLUME] IN BLOOD BY AUTOMATED COUNT 0.48 10*3/u L 0.30 - 1.10 03/24 Specimen Type: BLOOD No comment entered. Ordering Provider: EVELINA CONTRERAS Report Released Date/Time: Apr 03, 2023 09:31 AM Reporting Lab: [facility] [place] [facility] [address] [facility] [address] Performing Lab: [facility] [place] [facility] [address] [facility] [address] [facility] [place] [facility] CBC AND DIFF (AUTO) MCH [ENTITIC MASS] BY AUTOMATED COUNT 32.6 pg 26.2 - 32.6 03/24 Specimen Type: BLOOD No comment entered. Ordering Provider: EVELINA CONTRERAS Report Released Date/Time: Apr 03, 2023 09:31 AM Reporting Lab: [facility] [place] [facility] [address] [facility] [address] Performing Lab: [facility] [place] [facility] [address] [facility] [address] [facility] [place] [facility] CBC AND DIFF (AUTO) NEUTROPHILS /100 LEUKOCYTES IN BLOOD BY AUTOMATED COUNT 66.0 43.7 - 75.8 03/24 Specimen Type: BLOOD No comment entered. Ordering Provider: EVELINA CONTRERAS Report Released Date/Time: Apr 03, 2023 09:31 AM Reporting Lab: [facility] [place] [facility] [address] [facility] [address] Performing Lab: [facility] [place] [facility] [address] [facility] [address] [facility] [place] [facility] CBC AND DIFF (AUTO) LYMPHOCYTES /100 LEUKOCYTES IN BLOOD BY AUTOMATED COUNT 25.1 14.0 - 42.3 03/24 Specimen Type: BLOOD No comment entered. Ordering Provider: EVELINA CONTRERAS Report Released Date/Time: Apr 03, 2023 09:31 AM Reporting Lab: [facility] [place] [facility] [address] [facility] [address] Performing Lab: [facility] [place] [facility] [address] [facility] [address] [facility] [place] [facility] CBC AND DIFF (AUTO) MONOCYTES/1 00 LEUKOCYTES IN BLOOD BY AUTOMATED COUNT 7.6 5.1 - 13.7 03/24 Specimen Type: BLOOD No comment entered. Ordering Provider: EVELINA CONTRERAS Report Released Date/Time: Apr 03, 2023 09:31 AM Reporting Lab: [facility] [place] [address] [address] Performing Lab: [facility] [place] [address] [address] [facility] [place] [facility] CBC AND DIFF (AUTO) EOSINOPHILS /100 LEUKOCYTES IN BLOOD BY AUTOMATED COUNT 0.5 0.4 - 6.8 03/24 Specimen Type: BLOOD No comment entered. Ordering Provider: EVELINA CONTRERAS Report Released Date/Time: Apr 03, 2023 09:31 AM Reporting Lab: [facility] [place] [address] [address] Performing Lab: [facility] [place] [facility] [address] [facility] [address] [facility] [place] [facility] CBC AND DIFF (AUTO) BASOPHILS/1 00 LEUKOCYTES IN BLOOD BY AUTOMATED COUNT 0.5 0.1 - 2.0 03/24 Specimen Type: BLOOD No comment entered. Ordering Provider: EVELINA CONTRERAS Report Released Date/Time: Apr 03, 2023 09:31 AM Reporting Lab: [facility] [place] [address] [address] Performing Lab: [facility] [place] [facility] [address] [facility] [address] [facility] [place] [facility] CBC AND DIFF (AUTO) NEUTROPHILS [#/VOLUME] IN BLOOD BY AUTOMATED COUNT 4.15 10*3/u L 2.20 - 7.60 03/24 Specimen Type: BLOOD No comment entered. Ordering Provider: EVELINA CONTRERAS Report Released Date/Time: Apr 03, 2023 09:31 AM Reporting Lab: [facility] [place] [facility] [address] [facility] [address] Performing Lab: [facility] [place] [facility] [address] [facility] [address] [facility] CBC AND DIFF (AUTO) LYMPHOCYTES [#/VOLUME] IN BLOOD BY AUTOMATED COUNT 1.58 10*3/u L 1.00 - 3.20 03/24 Specimen Type: BLOOD No comment entered. Ordering Provider: EVELINA CONTRERAS Report Released Date/Time: Apr 03, 2023 09:31 AM Reporting Lab: [facility] [place] [facility] [address] [facility] [address] Performing Lab[facility] [place] [facility] [address] [facility] [address] [facility] CBC AND DIFF (AUTO) EOSINOPHILS [#/VOLUME] IN BLOOD BY AUTOMATED COUNT 0.03 10*3/u L 0.03 - 0.44 03/24 Specimen Type: BLOOD No comment entered. Ordering Provider: EVELINA CONTRERAS Report Released Date/Time: Apr 03, 2023 09:31 AM Reporting Lab: [facility] [place] [facility] [address] [facility] [address] Performing Lab: [facility] [place] [facility] [address] [facility] [address] [facility] CBC AND DIFF (AUTO) BASOPHILS [#/VOLUME] IN BLOOD BY AUTOMATED COUNT 0.03 10*3/u L 0.01 - 0.13 03/24 Specimen Type: BLOOD No comment entered. Ordering Provider: EVELINA CONTRERAS Report Released Date/Time: Apr 03, 2023 09:31 AM Reporting Lab: [facility] [address] [facility] [address] Performing Lab: [facility] [address] [facility] [address] [facility] CBC AND DIFF (AUTO) IMMATURE GRANULOCYTE S/100 LEUKOCYTES IN BLOOD BY AUTOMATED COUNT 0.3 0.0 - 0.7 03/24 Specimen Type: BLOOD No comment entered. Ordering Provider: EVELINA CONTRERAS Report Released Date/Time: Apr 03, 2023 09:31 AM Reporting Lab: [facility] [address] [facility] [address] Performing Lab: [facility] [address] [address] [facility] CBC AND DIFF (AUTO) IMMATURE GRANULOCYTE S [#/VOLUME] IN BLOOD 0.02 10*3/u L 0.00 - 0.06 03/24 Specimen Type: BLOOD No comment entered. Ordering Provider: EVELINA CONTRERAS Report Released Date/Time: Apr 03, 2023 09:31 AM Reporting Lab: [facility] [address] [facility] [address] Performing Lab: [address] [address] [facility] HEMOGLOBI N A1C PANEL HEMOGLOBIN A1C/HEMOGLO BIN.TOTAL [...] Apr 03, 2023 09:31 AM Reporting Lab: [facility] [place] [facility] [address] [facility] [address] Performing Lab: [facility] [address] [facility] [address] [facility] TSH THYROTROPIN [UNITS/VOLU ME] IN SERUM OR PLASMA 3.15 u[IU]/ mL 0.35 - 5.00 03/24 Specimen Type: SERUM No comment entered. Ordering Provider: EVELINA CONTRERAS Report Released Date/Time: Apr 03, 2023 09:31 AM Reporting Lab: [facility]N [facility] [address] [facility] [address] Performing Lab: [facility]SONRRIVERV[facility] CENTERTRN [facility]ITALUSE[facility] [address] [facility] [address] [facility] CALCIUM CALCIUM [MASS/VOLUM E] IN SERUM OR PLASMA 8.4 mg/dL 8.5 - 10.2 03/24 L Specimen Type: SERUM No comment entered. Ordering Provider: EVELINA CONTRERAS Report Released Date/Time: Apr 03, 2023 09:31 AM Reporting Lab: [facility]AD[facility]ITALN [facility]ITALUSEJ[facility] [address] [facility] [address] Performing Lab: [facility]N [facility]PITALUSETS [facility] [address] [facility] [address] [facility] VITAMIN D (25-OH) 25-HYDROXYV ITAMIN D3 [MASS/VOLUM E] IN SERUM OR PLASMA 45 ng/mL 20 - 50 03/24 Specimen Type: SERUM No comment entered. Ordering Provider: EVELINA CONTRERAS Report Released Date/Time: Apr 03, 2023 09:31 AM Reporting Lab: [facility]SONRRIVERVIEW REG[facility] CENTERTRN [facility]OSPITALUSETS [facility] [address] [facility] [address] Performing Lab: [facility] TRN [facility]PITALUSETS [facility] [address] [facility] [address] [facility]N [facility]USE [facility] TRIGLYCER LAURA TRIGLYCERID E [MASS/VOLUM E] IN SERUM OR PLASMA 126 mg/dL 0 - 150 09/19 Specimen Type: SERUM No comment entered. Ordering Provider: EVELINA CONTRERAS Report Released Date/Time: Apr 03, 2023 09:31 AM Reporting Lab: [facility] [place] [facility] [address] [facility] [address] Performing Lab: [facility] [place] [facility] [address] [facility] [address] [facility] [place] [facility] MICROALBU MIN CREATININ E RATIO PANEL MICROALBUMI N/CREATININ E [MASS RATIO] IN URINE cancmg /g 0 - 29.9 03/12 Specimen Type: URINE No comment entered. Ordering Provider: EVELINA CONTRERAS Report Released Date/Time: March 08, 2023 10:25 AM Reporting Lab: [facility] [place] [facility] [address] [facility] [address] Performing Lab: [facility] [place] [place] [facility] [address] [facility] [address] [facility] [place] [facility] MICROALBU MIN CREATININ E RATIO PANEL MICROALBUMI N [MASS/VOLUM E] IN URINE < 0.5mg/ dL 03/12 Specimen Type: URINE No comment entered. Ordering Provider: EVELINA CONTRERAS Report Released Date/Time: March 08, 2023 10:25 AM Reporting Lab: [facility] [place] [facility] [address] [facility] [address] Performing Lab: [facility] [place] [facility] [address] [facility] [address] [facility] [place] [facility] MICROALBU MIN CREATININ E RATIO PANEL CREATININE [MASS/VOLUM E] IN URINE 73.42 mg/dL 03/12 Specimen Type: URINE No comment entered. Ordering Provider: EVELINA CONTRERAS Report Released Date/Time: March 08, 2023 10:25 AM Reporting Lab: [facility] [place] [facility] [address] [facility] [address] Performing Lab: [facility] [place] [place] [facility] [address] [facility] [address] [facility] [place] [facility] Vital [...] [facility] [place] [facility] Outpatient Encounter [id number] MARY BETH [place] 04/09 [facility] [place] [facility] [place] En[facility] [id number] 04/25 [facility] [place] [facility] [place] Out[place] Encounter [id number] 05/13 [place] Outpatient Encounter [id number] Diagnos is: ICD-10- CM M81.0 Age-rel ated osteopo rosis w/o current patholo gical fractur e
DIANE,A POLINARIO 05/13 [place] [facility] [place] [facility] Outpatient Encounter [id number] 06/04 [facility] [place] [place] [facility] [place] [facility] Outpatient Encounter [id number] BILLYJEAN PIERRE MOREIRAMYRIAM LEXY R 08/12 [facility] [place] [facility] [place] [facility] Outpatient Encounter [id number] 08/12 [facility] [place] [facility] [place] OFF[place] O/P EST MOD 30-39 MIN [id number] Diagnos is: ICD-10- CM R05.3 Chronic cough<b r/> DIANE,A POLINARIO 08/12 [place] O/P EST LOW 20-29 MIN [id number] Diagnos is: ICD-10- CM Z09 Encntr for f/u exam aft trtmt for cond oth than malig neoplm< br/> DIANE,A POLINARIO 08/22 [place] OFF[place] O/P EST MOD 30-39 MIN [id number] Diagnos is: ICD-10- CM 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
DIANE,A POLINARIO 04/06 [facility] ELECTROCAR DIOGRAM TRACING [id number] Diagnos is: ICD-10- CM I10 Essenti al (primar y) hyperte nsion<b r/> APURVA,NI CLAUDINE R 05/04 [facility] ELECTROCAR DIOGRAM REPORT [id number] Diagnos is: ICD-10- CM Z13.6 Encount er for screeni ng for cardiov ascular disorde rs
Destiny MAXWELL ERILYN 05/04 [place] [facility] [place] [facility] Outpatient Encounter [id number] 09/21 [place] [facility] Social History Combined list of available smoking, tobacco, and other social history from Department of Defense and Veterans Affairs facilities. Social History Type Response Date Comment Sourc e Tobacco smoking status VAIS VA-TOBACCO FORMER USER 024 [place] History of tobacco use CA-TOBACCO QUIT 1 5 YRS OR MORE 04/06/2024 [place] History of tobacco use CA-TOBACCO NEVER USED 04/03/2023 [place] History of tobacco use CA-TOBACCO NEVER USED 03/29/2022 [place] Plan of Care List of future care activities from [facility] facilities. Additional future care activities may be listed in the Assessment and Plan section. Date/Time Care Activity Care Activity Detail Facili ty 04/05/2025 AMBULATORY - MEDICINE AMBULATORY - MEDICI NE [facility] Advance Directives List of completed, amended, or rescinded Advance Directives on record at Department of Veterans Affairs facilities. An actual copy of the Directive is not included. Date Advance Directive Provider Source 03/29/2022 [facility]
--- OUTSIDE RECORDS SUMMARY | 2024-10-26 16:16 | XMS_ITS | Continuity of Care Document ---
Author Organization [facility] Address [address] [place] [address] [address] [place] [address] Phone Care Team Providers Care Environmental Aide Name Role Phone Todd HEATON, Matthew Unavailable [...] Copied on Encounter OFFICE/OUTPA TIENT VISIT, NEW [facility], [address], [place], [place], [id number], [place] tel:[phone] [facility] Body mass index (BMI) 22.0-22.9, adultDyspneaHFrE F, NYHA Class IIIOther pulmonary embolism without acute cor pulmonaleParoxys mal atrial fibrillationAnem iaThrombocytopen iaCKDOther secondary pulmonary hypertension 3 Todd Castro. [address], [address], [place], [address], . tel:[phone] Referring Provider: Tal Aguilar, [address], [place], [address] . tel:[phone] Family History Family Member Type Diagnosis Age At Onset No Information Payers Payer name Insurance type Covered democrat ID Authoriza lory(s) [employer] [place] Scan Senior Adv [id number] Social History Type Description Quantity Date Captured [...]
== END 2024-10-26 13:53 | disposition home or self-care (01) ==
LOC: HO.HMCH 13:26
PROVIDERS: PCP Internal Medicine; Visit Provider Internal Medicine
DX: U07.1 COVID-19 (principal)

== ENCOUNTER 2025-06-02 06:10 | Outpatient (REF) | payer MEDICARE, SELFPAY ==
--- OUTSIDE RECORDS SUMMARY | 2022-12-20 09:30 | XMS_ITS | Continuity of Care Document ---
Author Organization [facility] Address [address] [place] [address] [address] [place] [address] Phone Care Team Providers Care Wheel Truer Name Role Phone Todd HEATON, Matthew Unavailable [...] Copied on Encounter OFFICE/OUTPA TIENT VISIT, NEW [facility], [address], [place], [place], [id number], [place] tel:[phone] [facility] Body mass index (BMI) 22.0-22.9, adultDyspneaHFrE F, NYHA Class IIIOther pulmonary embolism without acute cor pulmonaleParoxys mal atrial fibrillationAnem iaThrombocytopen iaCKDOther secondary pulmonary hypertension 3 Todd Castro. [address] [facility], [address], [place], [address], . tel:[phone] Referring Provider: Tal Aguilar, [address] [facility] [address], [place], [address] . tel:[phone] Family History Family Member Type Diagnosis Age At Onset No Information Payers Payer name Insurance type Covered democrat ID Authoriza lory(s) [employer] [place] [facility] [id number] Social History Type Description Quantity Date Captured [...]
--- OUTSIDE RECORDS SUMMARY | 2025-04-06 03:30 | XMS_ITS | Encounter Summary ---
Author Name [facility] [place] [facility] [facility] [place] Address [address] [place] [address] Care Team Providers Care Hand Loom Weaver Name Role Phone ANNAMARIE LOPEZ Primary Care Provider Pallavi baig Insurance Providers: All historical and current Section Date Range: From patient's date of to the date document was created. This section includes the names of all active insurance providers for the patient. Insurance Provider Type of Coverage Plan Name Start of Policy Coverage End of Policy Coverage Group Number Member ID Insurance Provider's Telephone Number Policy Cornelius's Name Patient's Relationship to Policy Cornelius [facility] ([facility]) MEDICARE ADVANTAGE MCR ([facility]) Oct 14, 2024 [id number] MINA REZA PATIENT [facility] ([facility]) MEDICARE ADVANTAGE MCR ([facility]) Oct 14, 2022 [id number] 76 MINA REZA PATIENT [facility] ([facility]) MEDICARE ADVANTAGE MCR ([facility]) Oct 14, 2022 [id number] 76 MINA REZA PATIENT [facility] ([facility]) MEDICARE ADVANTAGE MCR ([facility]) Oct 14, 2016 [id number] MINA REZA PATIENT [facility] ([facility]) MEDICARE ADVANTAGE MCR ([facility]) Oct 14, 2022 [id number] MINA REZA PATIENT Selected Encounter This section includes the information on record at [place] for the Encounter. Date/Time Encounter Type Encounter Description Reason Provider Source Apr 06, 2025 07:30 AM Outpatient Encounter ENDOCRINOLOGY ICD-10-CM M81.0 Age-related osteoporosis w/o current pathological fracture LAILA ACOSTA [place] Encounter Template Text not used by [place] Assessments - Encounter Diagnoses This section includes the primary and secondary diagnoses documented for the Encounter. Date/Time Primary/Secondary Diagnosis Diagnosis Name Provider Source Apr 06, 2025 07:57 AM PRIMARY Age-related osteoporosis w/o current pathological fracture LAILA ACOSTA [facility] Plan of Treatment: Future Appointments (+ 6 months) and Future Tests (+/- 45 days) The Plan of Treatment section includes future care activities for the patient from [facility] [place] [facility] This section includes future appointments and future orders which are active, pending or scheduled. Future Appointments This section includes appointments that were scheduled to occur 6 months from the date of the Encounter, up to a maximum of 20 appointments. The data comes from all [place] treatment facilities. Appointment Date/Time Appointment Type Appointme nt Facility Name May 10, 2025 09:30 AM AMBULATORY - SURGERY [place] CN TRL [facility] Sep 22, 2025 02:30 PM AMBULATORY - MEDICINE [place] [facility] Sep 22, 2025 03:00 PM AMBULATORY - MEDICINE [facility] Lab Results: +/- 30 days of the encounter This section includes the Chemistry and Hematology Lab Results on record with [place] for the patient. Radiology Reports and Pathology Reports are provided separately, in subsequent sections. Lab Results This section contains the Chemistry/Hematology Results that were resulted 30 days before or 30 daysafter the date of the Encounter. Date/Time Source Result Type Result - Unit Interpretation Reference Range Specimen Type Comment Apr 06, 2025 07:46 AM [facility] LIPID PANEL FASTING SERUM Specimen Type: SERUM No comment entered. Ordering Provider: ASIF BECERRIL Report Released Date/Time: Apr 05, 2025 10:18 AM Reporting Lab: [facility] [address] [facility] [address] Performing Lab: [address] [address] CHOLESTEROL 122 mg/dL TRIGLYCERIDE 107 mg/dL 0-150 LDL calculated 67 mg/dL 0-129 CHOL/HDL 3.6 HDL CHOLESTEROL 34 mg/dL L >40 Advance Directives: All historical and current Section Date Range: From patient's date of to the date document was created. This section includes ALL of a patient's completed or amended [place] Advance and Rescinded Directives. The entries below indicate that a directive exists for the patient, but an actual copy is not included with this document. The data comes from all [place] facilities. Date Advance Directives Provider Source Mar 29, 2022 ADVANCE DIRECTIVE [facility] Encounter Notes: All associated encounter notes This section contains the clinical notes associated to the Encounter. Date/Time Encounter Note(s) Provider Source Apr 06, 2025 07:30 AM ENDOCRINOLOGY CONS ULT: LOCAL TITLE: CONSULT REPORT/ENDOCRINE STANDARD TITLE: ENDOCRINOLOGY CONSULT DATE OF NOTE: APR 06, 2025@07:30 ENTRY DATE: APR 06, 2025@07:30:36 AUTHOR: LAILA ACOSTAIGNER: URGENCY: STATUS: COMPLETED Active Medications: Active and Recently Outpatient Medications (excluding Supplies): Active Outpatient Medications Status 1) ALENDRONATE 70MG TAB TAKE ONE TABLET BY MOUTH ONCE A WEEK ACTIVE (TAKE WITH A FULL GLASS OF WATER; REMAIN UPRIGHT FOR 30 MINUTES; NO FOOD OR DRINK FOR 30 MINUTES) Indication: FOR OSTEOPOROSIS 2) EYELID CLEANSER,EYE SCRUB PAD USE 1 PAD TOPICALLY EVERY ACTIVE MORNING Indication: BLEPHARITIS Remote Medications: No Active Remote Medications for this patient Reason For Request: with osteoporosis on alendronate x 2 years. BMD continue to decline. Please advise further evaluation and treatment. March 05 Mar 24 20252023 GLUCOSE 80 81 mg/dL 65 - 100 BUN 19 15 mg/dL 8 - 26 CREATININE 0.76 0.80 mg/dL 0.72 - 1.25 Sodium 136 135 mmol/L 136 - 145 K+/Pot 4.2 4.1 mmol/L 3.5 - 5.1 CL 101 104 mmol/L 98 - 107 CO2 26 26 mEq/L 23 - 31 CA 8.9 8.4 L mg/dL 8.8 - 10 Mar 05 2025 TSH 3.86 uIU/mL .35 - 4.94 March 05, 2025@12:50 VITAMIN D, 25-OH, TOTAL: 62 ng/mL 30 - 100 MARCH 05, 2025 Study: DEXA scan. Comparison: DEXA scan from May 09, 2023. Findings: Images obtained on a [employer] DEXA Machine. Measurement of bone mineral content gives a T score of -3.8 in the left forearm which previously measured -3.3, a change of -4.3% from the prior. Measurement of bone mineral content gives a T score of -2.2 in the left hip, which previously measured -2.1, a change of -2.8% from the prior. Bone mineral content in the lumbar spine gives a T-score currently of -2.0 which previously measured -1.8, which is a change of -1.4% from prior. This patient may be taking OTC calcium and vitamin D which are not documented. In fact, his vitamin D level suggests that he does take vitamin D. However, please ensure at least 1200 mg daily of calcium daily. If given as prescription, suggest 650 mg bid. Suggest review of dairy intake: an 8oz glass of milk, one yoghurt, or 1/2 c cottage cheese contain roughly 300 mg of calcium. Some oat milks contain calcium, and ensure contains about 250 mg calcium per container if taken. Suggest checking PTH and SPEP (after 2-4 weeks of ensuring adequate calcium intake). The fact that the forearm shows the greatest bone loss is suggestive of hyperparathyroidism. This could be primary, or secondary if pt has low calcium intake. The lower calcium levels (with albumin 4.3) are also suggestive of low calcium intake. A common barrier to adequate calcium intake is constipation. Suggest offering pt a stool softener to use should this occur. Prescription calcium allows adherence to be monitored. However, many patients prefer calcium chews or gummies, or tums. Forteo followed by bisphosphosphonate can result in improved outcomes. However, in patients already on bisphosphonates, the impact of changing to Forteo is very blunted. I do not recommend a change in medication at this time. /es/ LAILA ACOSTA MD STAFF PHYSICIAN Signed: 04/06/2025 07:57 LAILA ACOSTA CNTRL W[facility]N [facility]
--- OUTSIDE RECORDS SUMMARY | 2025-06-02 06:13 | XMS_ITS | Patient Health Record ---
Author Organization [facility] Address [address] [place] [address] Care Team Providers Care Master At Arms Name Role Phone PEPE COSTELLO Primary Care Provider Roni Leggett [phone] Allergies Allergen (clinical drug ingredient) Drug/Non Drug Allergy documented on EMR Reaction Allergy Type Onset Date Status Aleve Unknown Drug Allergy Active Reason For Referral No Information Medications Medication SIG (Take, Route, Fr equency, Duration) Notes Start Date End Date Status Multivitamin Adult - Orally Active Social History Tobacco Use: Social History Observation Description Date Details (start date - stop date) Never Smoker NA - NA Tobacco Use/Smoking Question Answer Notes Patient is a nonsmoker Alcohol Screen Question Answer Notes Did you have a drink containing alcohol in the p ast year? 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 and will not accept blood transfusions Problems Problem Type SNOMED Code ICD Code Onset Dates Problem Status W/U Status Risk Notes Problem 032526554 Encounter for screening for malignant neoplasm of colon (Z12.11) Active confirmed Problem 013880651 Preprocedural examination (Z01.818) Active confirmed Plan Of Treatment Pending Test Test Name Order Date GI BIOPSY 05/01/2017 Future Test Test Name Order Date COLONOSCOPY 02/12/2017 Insurance Providers Payer Name Payer Address Payer Phone Subscriber Number Group Number Insured Name Patient Relationship to Insured Coverage Start Date [facility]age End Date [facility] [address] [facility] [phone] [id number] SARBJIT REZA Self - patient is the insured Medical (General) History Medical History History ICD Code Denies [place],CVA,Lung disease,renal dise ase Neg colonoscopies in 2005 and approx [address] Medina Surgical History Surgery Date(Month/Year) Left inguinal hernia repair Back surgery lower--Dr. Miguel 2012 Right wrist surgery right 2016 Banding of hemorrhoids with Dr. Medina in 2005
--- OUTSIDE RECORDS SUMMARY | 2025-06-02 06:13 | XMS_ITS | Encounter Summary ---
Author Organization [employer] Address [address] [place] [address] [address] [place] [address] Care Team Providers Care Marketing Information Coordinator Name Role Phone Unavailable Primary Care Provider Unavailabl e Encounter Details Date Type Department Care Team (Latest Contact Info) Description 11/12/2019 Abstract [facility] CONVERSIONS Dental, Provider, DDS Social History Tobacco Use Types Packs/Day Years Used Date Smoking Tobacco: Never Assessed Sex and Gender Information Value Date Recorded Sex Assigned at Male 08/13/2022 10:18 AM EDT Legal Sex Male 10:18 AM EDT Gender Identity Male 08/13/2022 10:18 AM EDT Sexual Orientation Straight 08/13/2022 10 :18 AM EDT documented as of this encounter Plan of Treatment Not on file documented as of this encounter Visit Diagnoses Not on filedocumented in this encounter
[2025-06-02 06:20] LABS: MANUAL DIFF FLAG NO
[2025-06-02 07:48] LABS: Hematocrit 42.5 % (42.0-52.0); Hemoglobin 14.3 g/dl (14.0-18.0); Imm Gran Abs Auto 0.01 X10*3/uL (0.00-0.03); Imm Gran Pct Auto 0.2 % (0.0-0.4); Lymphocytes Absolute Auto 1.6 X10*3/uL (1.2-4.9); Mean Corpuscular HGB Conc 33.6 g/dl (31.0-36.0); Mean Corpuscular Hemoglobin 32.7 pg (27.0-33.0); Mean Corpuscular Volume 97.3 fL (80.0-98.0); NRBC Abs Auto 0.000 X10*3/uL (0.0-0.012); NRBC Pct Auto 0.0 /100WBC (0.0-0.2); Platelet Count 178 X10*3/uL (160-400); Red Blood Count 4.37 X10*6/uL (4.60-5.80); White Blood Count 5.9 X10*3/uL (4.8-10.8)
[2025-06-02 08:19] LABS: Alanine Aminotransferase 24 U/L (0-40); Albumin Level 4.3 g/dL (3.5-5.0); Alkaline Phosphatase 58 U/L (39-117); Anion Gap 10 (12-20); Aspartate Amino Transferase 33 U/L (5-37); Blood Urea Nitrogen 13 mg/dL (9-16); Calcium 9.0 mg/dL (8.4-10.2); Carbon Dioxide 29 mmol/L (22-29); Chloride 107 mmol/L (96-108); Cholesterol 126 mg/dL (<200); Estimated Glomerular Filt Rate > 60; HDL Cholesterol 37 mg/dL (>40); Potassium 4.4 mmol/L (3.3-5.1); Sodium 142 mmol/L (135-145); Total Protein 7.2 g/dL (6.5-8.0); Triglycerides 90 mg/dL (<150)
[2025-06-02 08:55] LABS: Free T4 (Free Thyroxine) 0.96 ng/dL (0.71-1.85); Thyroid Stimulating Hormone 2.49 uIU/mL (0.32-4.0)
[2025-06-02 09:16] LABS: Folate 11.7 ng/mL (> or = 4.0); Vitamin B12 980 pg/mL (200-900)
== END 2025-06-02 06:11 | disposition home or self-care (01) ==
LOC: HO.LAB 06:10
PROVIDERS: PCP Internal Medicine; Visit Provider Internal Medicine
DX: I70.90 Unspecified atherosclerosis (principal); E78.00 Pure hypercholesterolemia, unspecified
CPT/HCPCS: 36415; 80053; 80061; 82607; 82746; 84439; 84443; 85025

== ENCOUNTER 2025-06-07 10:50 | Outpatient (AMB) | payer MEDICARE, SELFPAY ==
--- OUTSIDE RECORDS SUMMARY | 2022-12-20 09:30 | XMS_ITS | Continuity of Care Document ---
Author Organization [facility] Address [address] [place] [address] [address] [place] [address] Phone Care Team Providers Care Assistant Loan Processor Name Role Phone Todd HEATON, Matthew Unavailable [...] Copied on Encounter OFFICE/OUTPA TIENT VISIT, NEW [facility], [address] [facility] [address], [place], [place], [id number], [place] tel:[phone] [facility] Body mass index (BMI) 22.0-22.9, adultDyspneaHFrE F, NYHA Class IIIOther pulmonary embolism without acute cor pulmonaleParoxys mal atrial fibrillationAnem iaThrombocytopen iaCKDOther secondary pulmonary hypertension 3 Todd Castro. [address] [facility], [address], [place], [address], . tel:[phone] Referring Provider: Tal Aguilar, [address] [facility] [address], [place], [address] . tel:[phone] Family History Family Member Type Diagnosis Age At Onset No Information Payers Payer name Insurance type Covered democrat ID Authoriza lory(s) [employer] [place] [facility] Senior Adv [id number] Social History Type Description Quantity Date Captured [...]
--- OUTSIDE RECORDS SUMMARY | 2025-06-07 12:04 | XMS_ITS | Encounter Summary ---
Author Organization [employer] Address [address] [place] [address] [address] [place] [address] Care Team Providers Care Manager Consumer Insights Name Role Phone Unavailable Primary Care Provider Unavailabl e Encounter Details Date Type Department Care Team (Latest Contact Info) Description 11/12/2019 Abstract [facility] CONVERSIONS Dental, Provider, DDS Social [...]
== END 2025-06-07 11:24 | disposition home or self-care (01) ==
LOC: HO.HMGAL 10:50
PROVIDERS: PCP Internal Medicine; Visit Provider Registered Nurse Emergency
DX: J30.89 Other allergic rhinitis (principal)
CPT/HCPCS: 95117; 95165

== ENCOUNTER 2025-07-02 08:38 | Outpatient (AMB) | payer MEDICARE, SELFPAY ==
[2025-07-02 08:44] VITALS: BP 122/60; PULSE 64; RESP 18; TEMP 36.2; O2SAT 95; BMI 24.2
--- NOTE | 2025-07-02 08:44 | MHC.PC.OV ---
Vital Signs 07/02/25 08:44 Height 5 ft 5 in Weight 145 lb 4 oz BMI 24.2 BP 122/60 Blood Pressure Location Lt brachial Position Sitting Respiration 18 Pulse 64 Pulse Source Pulse Oximeter Temp 97.1 F Temp Source Temporal Artery Scan Pulse Oximetry (%) 95 Oxygen Delivery Method Room Air Intake Visit Reasons: Annual Exam - see comments Falafel Cart Cook Required: No Accompanied by: Self / Same As Patient Allergies naproxen (Aleve) Allergy (Unknown, Verified 07/02/25 08:45) nausea and vomiting Medication List - Last Reconciled 07/02/25 by Maribell Jacinto MD alendronate 70 mg PO QWEEK calcium carb,lactat-vitamin D3 200 mg-6.25 mcg (250 unit) tabs PO BID famotidine 20 mg PO DAILY bxcidume-koq-hqjzo-vit K-lycop 400-20-370 mcg (One-A-Day Men's 50 Plus (with vitamin K)) 1 tab PO DAILY simvastatin 5 mg PO BEDTIME Tobacco use date assessed: 07/02/25 Fall risk assessment: No Falls in past year Last assessed Fall Risk: 07/02/25 Dental Screening Dental Screen Date: 07/02/25 Did you have a dental visit in the last 12 months?: Yes Did you have a dental problem in the last 6 months where you did not have access to dental care?: No Was dental information given to patient?: Patient has dentist HPI Annual Exam - see comments HPI Details 2 months - states reflux problem-- went to see [place] doctor Dr. Golden and was famotidine 20 mg QD PFSH Medical History PAD (peripheral artery disease) Primary osteoarthritis of right knee Osteoarthritis of right knee Ganglion cyst of wrist Surgical History History of knee replacement procedure of left knee History of knee replacement procedure of right knee Hx of colonoscopy History of blepharoplasty History of lumbar surgery H/O wrist surgery History of inguinal hernia repair Status post total left knee replacement (~06/27/20) Family History Father No problems noted. Mother Diabetes Social History (Reviewed 07/02/25 @ 08:45 by CHARLENE Foster Housing: House Are you a primary med care manager to a significant other at home: No Do you presently have visiting nurse or other home services: No Alcohol intake: never Patient Tobacco Use Status: Former Tobacco user Tobacco use type: Cigarette Years Smoked: quit 26 years old e-Cigarette/Vaping Use: Never Used Second Hand Smoke Exposure: No Advance Directives Date on File: 07/27/20 service: Yes Current occupational status: retired Current occupation: Right Handed Cognitive needs: No Hearing needs: No Vision needs: Yes Questionnaire PHQ-9 Over the last 2 weeks, how often have you been bothered by any of the following problems? 1. Little interest or pleasure in doing things: not at all 2. Feeling down, depressed, or hopeless: not at all 3. Trouble falling or staying asleep, or sleeping too much: not at all 4. Feeling tired or having little energy: not at all 5. Poor appetite or overeating: not at all 6. Feeling bad about yourself - or that you are a failure or have let yourself or your family down: not at all 7. Trouble concentrating on things, such as reading the newspaper or watching television: not at all 8. Moving or speaking so slowly that other people could have noticed. Or the opposite - being so fidgety or restless that you have been moving around a lot more than usual: not at all 9. Thoughts that you would be better off or of hurting yourself in some way: not at all Total score: 0 Source: Developed by Drs. Roni Amaya, Maricruz Farah, Denzel Easton and colleagues, with an educational keri from [employer]. Thrive Questionnaire Date Thrive assessed: 10/23/24 I am a: Patient What is your living situation today?: I have a steady place to live Within the past 12 months, did the food you bought not last and you didn't have the money to get more?: Never true Within the past 12 months, did you worry whether your food would run out before you got money to buy more?: Never true Do you have trouble paying for medicines?: No Do you have trouble getting transportation to medical appointments?: No Do you have trouble paying your heating and electricity bill?: No Do you have trouble taking care of your child, family member or friend?: No Do you have trouble with day-to-day activities such as bathing, preparing meals, shopping, managing finances, etc.?: No Are you currently unemployed and looking for a job?: No Are you interested in more education?: No Please select the resources that you would like help with: None Currently or been in a relationship where the following occur: I choose not to answer THRIVE Score: 0 AUDIT C Alcohol Use Questionnaire (AUDIT-C) 1. How often do you have a drink containing alcohol?: Never Total Score: 0 MAYRA-7 AMB Questionnaire MAYRA-7 Date MAYRA - 7 assessed: 10/23/24 Feeling nervous, anxious, or on edge: 0 = Not at all Not being able to stop or control worryin = Not at all Worrying too much about different things: 0 = Not at all Trouble relaxin = Not at all Being so restless that it is hard to sit still: 0 = Not at all Becoming easily annoyed or irritable: 0 = Not at all Feeling afraid as if something awful might happen: 0 = Not at all Total MAYRA-7 score (0-4 normal; 5-9 mild; 10-14 moderate; 15-21 severe): 0 Source: Developed by Drs. Roni Amaya, Maricruz Farah, Denzel Easton and colleagues, with an educational keri from [employer]. Review of Systems Const Denies poor appetite and Denies weakness Eyes Denies no additional complaints ENT Reports Normal hearing present, Denies dizziness, Denies nasal congestion, Denies tinnitus and Denies sore throat Card Denies chest pain, Denies syncope, Denies rapid heart rate and Denies dyspnea Resp Denies cough and Denies dyspnea GI Denies change in stool character, Reports constipation, Denies diarrhea, Denies nausea and Denies vomiting Denies dysuria and Denies urinary frequency Neuro Reports Normal hearing present, Denies confusion, Denies dizziness, Denies syncope and Denies weakness Psych Denies confusion Physical exam (Primary Care) Vital Signs: Last Vital Signs Temp 97.1 F 07/02/25 08:44 Pulse 64 07/02/25 08:44 Resp 18 07/02/25 08:44 BP 122/60 07/02/25 08:44 Pulse Ox 95 07/02/25 08:44 Oxygen Delivery Method Room Air 07/02/25 08:44 BMI result Body Mass Index 24.2 Tobacco/Smoking Status: Tobacco use Status Tobacco use date assessed 07/02/25 07/02/25 08:51 Patient Tobacco Use Status Former Tobacco user 07/02/25 08:51 Tobacco use type Cigarette 07/02/25 08:51 e-Cigarette/Vaping Use Never Used 07/02/25 08:51 PHQ-9: PHQ-9 Score PHQ-9: Total score 0 07/02/25 08:51 Thrive Assessment: Date of Thrive Assessment Date Thrive assessed 10/23/24 07/02/25 08:51 Currently or been in a relationship where the following occur: I choose not to answer Const General: No confusion Orientation/consciousness: No confusion HENMT Head: Yes normocephalic Ears: external ears normal and TM's normal bilaterally Face and sinus: Yes normal facial exam Mouth: moist mucous membranes Throat: Yes tonsils normal Eyes Conjunctivae: conjunctivae normal Pupils: Equal, round and reactive pupils present and Pupil accommodation reflex normal Direct Ophthalmoscopy: normal light reflex Neck Neck: No lymphadenopathy Thyroid: Thyroid normal Chest Chest palpation & inspection: normal inspection of the chest Resp Effort & Inspection: normal respiratory effort and no audible wheezes Auscultation: clear to auscultation bilaterally, no crackles, no wheezes and lung sounds not diminished Cardio Rate: regular rate Rhythm: regular rhythm Peripheral pulses: radial pulses present and dorsalis pedis present GI Other: guaiac negative prostate N Palpation (GI): no masses Auscultation: normal bowel sounds and normoactive bowel sounds Male General Exam: Yes normal external exam Skin General skin exam: no rashes or lesions noted Rashes: no rashes Neuro General: No confusion Cranial nerves: Yes Equal, round and reactive pupils present and Yes Normal hearing present Cognition (Neuro): normal cognition Gait exam (Neuro): Normal gait present Motor exam (neuro): 5/5 motor strength present throughout Deep tendon reflexes (DTR's): Right brachioradialis reflex intensity grade: 2+, Left brachioradialis reflex intensity grade: 2+, Right patellar reflex intensity grade: 2+ and Left patellar reflex intensity grade: 2+ Extrem General: No edema Coding Level of Care Code Est Pt Prev Care >65y(73550) Diagnoses Annual physical exam Z00.00 Atherosclerosis of arteries I70.90 Hypercholesterolemia E78.00 GERD (gastroesophageal reflux disease) K21.9 Osteoporosis M81.0 Assessment & Plan Assessment & Plan (1) Annual physical exam: Code(s): Z00.00 - Encounter for general adult medical examination without abnormal findings Category: Medical Plan: Patient is advised to eat healthy, keep well hydrated, keep active and have adequate sleep. (2) Atherosclerosis of arteries: Code(s): I70.90 - Unspecified atherosclerosis Category: Medical Plan: Control the cholesterol, weight, blood pressure, . (3) Hypercholesterolemia: Code(s): E78.00 - Pure hypercholesterolemia, unspecified Category: Medical Plan: Avoid fried foods, chicken skin, eggs, butter margarine, pastries and meat. Be it pork or beef they have a lot of cholesterol (4) GERD (gastroesophageal reflux disease): Code(s): K21.9 - Gastro-esophageal reflux disease without esophagitis Category: Medical (5) Osteoporosis: Comment: bone density 2023 Code(s): M81.0 - Age-related osteoporosis without current pathological fracture Category: Medical Plan History of Present Illness The patient is an 84-year-old male presenting for a physical examination and management of chronic conditions. The patient has a history of bilateral knee replacement, which was not associated with any recent complications or surgeries. He has been diagnosed with hypercholesterolemia and atherosclerosis, for which he is currently taking simvastatin 5 mg daily. His last blood work in May showed normal blood count, electrolytes, renal function, blood sugar, liver function, and an LDL cholesterol level of 71 mg/dL. The patient had a COVID-19 infection in October 2024, with no mention of ongoing symptoms or complications. He reports experiencing gastroesophageal reflux disease symptoms for the past two months, characterized by acid reflux and stomach discomfort. He was prescribed famotidine by Dr. Hernandez, which he takes daily with some relief. Dietary modifications and lifestyle changes were discussed to manage the reflux symptoms. The patient has osteoporosis, diagnosed following a bone density test conducted by the [facility]. He is taking alendronate once a week, although he has been experiencing gastrointestinal side effects. Instructions were provided on the correct administration of alendronate to minimize these effects. Health Maintenance - Vaccinations: Flu, shingles, tetanus, RSV, and pneumonia vaccines are up to date - Bone health: Alendronate prescribed for osteoporosis management - Cardiovascular health: Simvastatin prescribed for hypercholesterolemia - Dietary advice: Recommendations to avoid foods that exacerbate reflux symptoms Social History - Exercise: Engages in biking four times a week, covering 11 miles in 40 minutes - Substance use: Denies alcohol consumption and smoking - Nutrition: Consumes a balanced diet with regular meals, avoids eating at night Review of Systems - General: Denies fever, weight loss, or fatigue - Cardiovascular: Denies chest pain, palpitations, or dyspnea - Respiratory: Denies cough or wheezing - Gastrointestinal: Reports acid reflux and burping; denies nausea, vomiting, or diarrhea - Neurological: Denies dizziness or syncope - Musculoskeletal: Denies joint pain or swelling Physical Exam General: Cooperative, healthy appearing, comfortable, no acute distress and well developed Orientation: Patient oriented x3 Limitations: No limitations Head: Normal to inspection Ears: Hearing grossly normal bilaterally, ear wax present, bruise noted from Q-tip use Nose: Normal external nose present Face and sinus: Normal facial exam Eyes: Appearance normal, both eyes and all related structures Neck: Normal visual inspection and Yes full ROM Respiratory: Normal respiratory effort and able to speak in complete sentences. Clear to auscultation bilaterally Cardiovascular: Regular rate and rhythm. Normal S1 and S2 GI: Normal to inspection. Soft to palpation and nontender, but patient reports acid reflux symptoms Skin: Rash noted on back Neuro: Patient oriented x3 Extremities: Normal to inspection Results - Labs: Normal blood count, electrolytes, renal function, blood sugar, liver function, LDL cholesterol 71 mg/dL - Bone Density: Conducted by [facility], results indicate osteoporosis Plan Patient was informed and verbally consented to the use of an ambient scribe for clinic note documentation during this visit. 1. Gastroesophageal Reflux Disease The patient reports experiencing symptoms of gastroesophageal reflux disease for the past two months, characterized by acid reflux and stomach discomfort. He was prescribed famotidine by Dr. Hernandez, which he takes daily with some relief. Dietary modifications and lifestyle changes were discussed to manage the reflux symptoms, including avoiding foods that exacerbate the condition and not lying down immediately after eating. 2. Osteoporosis The patient has osteoporosis, diagnosed following a bone density test conducted by the [facility]. He is taking alendronate once a week, although he has been experiencing gastrointestinal side effects. Instructions were provided on the correct administration of alendronate to minimize these effects, including taking the medication with a full glass of water and remaining upright for at least 30 minutes after ingestion. 3. Hypercholesterolemia The patient is diagnosed with hypercholesterolemia and is currently taking simvastatin 5 mg daily. His last blood work showed an LDL cholesterol level of 71 mg/dL, indicating good control of the condition. 4. Preventative Care The patient is up to date with vaccinations, including flu, shingles, tetanus, RSV, and pneumonia vaccines. He was advised on the optimal timing for flu vaccination to ensure maximum efficacy during flu season. Discussion Notes During the visit, I discussed with the patient the management of his gastroesophageal reflux disease, emphasizing the importance of dietary modifications and lifestyle changes to alleviate symptoms. We also reviewed the administration of alendronate for osteoporosis, ensuring he understands the correct procedure to minimize gastrointestinal side effects. I advised him on the timing of flu vaccinations to ensure optimal protection during flu season. Patient Instructions - Take famotidine as needed for reflux symptoms and avoid foods that trigger symptoms. - Take alendronate with a full glass of water and remain upright for at least 30 minutes after ingestion. - Schedule flu vaccination in July for optimal protection. - Continue regular exercise and maintain a balanced diet. Due to the problem right now patient was advised to hold the alendronate. Workup for reflux to be done. May take the Pepcid p.r.n. Orders: Orders [place] upper GI series Today K21.9 - Gastro-esophageal reflux disease without esophagitis, R13.10 - Dysphagia, unspecified
--- OUTSIDE RECORDS SUMMARY | 2025-07-02 09:15 | XMS_ITS | Encounter Summary ---
Author Organization [employer] Address [address] [place] [address] [address] [place] [address] Care Team Providers Care Dollyman Name Role Phone Unavailable Primary Care Provider Unavailabl e Encounter Details Date Type Department Care Team (Latest Contact Info) Description 02/01/2022 Abstract [facility] CONVERSIONS Dental, Provider, DDS Social History [...]
--- OUTSIDE RECORDS SUMMARY | 2025-07-02 09:15 | XMS_ITS | Encounter Summary ---
Author Organization [employer] Address [address] [place] [address] [address] [place] [address] Care Team Providers Care Network Support Engineer Name Role Phone Unavailable Primary Care Provider Unavailabl e Encounter Details Date Type Department Care Team (Latest Contact Info) Description 11/12/2019 Abstract [facility] CONVERSIONS Dental, Provider, DDS Social History [...]
--- OUTSIDE RECORDS SUMMARY | 2025-07-02 09:15 | XMS_ITS | Clinical Summary ---
Author Organization [employer] Address [address] [place] [address] [address] [place] [address] Care Team Providers Care Plow And Boring Machine Tender Name Role Phone Unavailable Primary Care Provider Unavailabl e Allergies Active Allergy Reactions Criticality Noted Date Comments Naproxen Hives 03/19/2014 Medications amoxicillin (Amoxil) 500 MG capsule Take 1 capsule by mouth every 8 (eight) hours. 05/19/2020 Active chlorhexidine (Peridex) 0.12 % solution Place 15 mL into mouth between cheek and gum every 12 (twelve) hours. 05/19/2020 Active Social History Tobacco Use Types Packs/Day Years Used Date Smoking Tobacco: Never Passive Smoke Exposure: Never Smokeless Tobacco: Never Tobacco Cessation:Counseling Given: Not Answered Alcohol Use Standard Drinks/Week Comments Yes 1 (1 standard drink = 0.6 oz pur e alcohol) Sex and Gender Information Value Date Recorded Sex Assigned at Male 08/13/2022 10:18 AM EDT Legal Sex Male 10:18 AM EDT Gender Identity Male 08/13/2022 10:18 AM EDT Sexual Orientation Straight 08/13/2022 10 :18 AM EDT Last Filed Vital Signs Vital Sign Reading Time Taken Comments Blood Pressure 116/72 12/21/2022 3:11 PM EST Pulse 68 12/21/2022 3:11 PM EST Temperature - - Respiratory Rate - - Oxygen Saturation - - Inhaled Oxygen Concentration - - Weight - - Height - - Body Mass Index - - Plan of Treatment Health Maintenance Due Date Last Done Comments Dental Oral Exam 1942 Dental X-Ray: Bitewings 1942 Dental X-Ray: Full Mouth 1942 Depression Screening 1942 Lipid Panel 1942 SDOH Screening 1942 Alcohol/Substance Use Screening 1954 DTaP/Tdap/Td Vaccines (1 - Tdap) 1961 Zoster Vaccines (2 of 3) 04/20/2016 02/24/2016 RSV Patients and Patients Aged 60 years or older (1 - 1-dose 75+ series) 2017 Pneumococcal Vaccine: 50+ Years (2 of 2 - PCV) 01/23/2023 01/23/2022 Dental Prophylaxis 06/24/2023 12/21/2022 Tobacco Screening 12/29/2023 12/28/2022 COVID-19 Vaccine ( season) 2025 07/30/2022, 02/16/2022, 07/17/2021, Additional history exists Influenza Vaccine (#1) 2025 , 08/17/2021, 09/12/2020, Additional history exists HIB Vaccines Aged Out No longer eligi ble based on patient's age to complete this topic HPV Vaccines Aged Out No longer eligi ble based on patient's age to complete this topic Hepatitis A Vaccines Aged Out No long er eligible based on patient's age to complete this topic Hepatitis B Vaccines Aged Out No long er eligible based on patient's age to complete this topic IPV Vaccines Aged Out No longer eligi ble based on patient's age to complete this topic Meningococcal B Vaccine Aged Out No l onger eligible based on patient's age to complete this topic Meningococcal Vaccine Aged Out No whitney rula eligible based on patient's age to complete this topic RSV under 20 months Aged Out No longe r eligible based on patient's age to complete this topic Rotavirus Vaccines Aged Out No longer eligible based on patient's age to complete this topic Procedures Procedure Name Priority Date/Time Associated Diagnosis Comments PROPHYLAXIS - ADULT Routine 12/21/2022 3:00 PM EST from Last 3 Months or Most Recently Relevant to Health Maintenance Insurance DENTAL - [facility] DENTAL - HSN PARTIAL (MEDICAID)
== END 2025-07-02 09:32 | disposition home or self-care (01) ==
LOC: HO.HMCH 08:39
PROVIDERS: PCP Internal Medicine; Visit Provider Internal Medicine
DX: Z00.00 Encounter for general adult medical examination without abnormal findings (principal); I70.90 Unspecified atherosclerosis; E78.00 Pure hypercholesterolemia, unspecified; K21.9 Gastro-esophageal reflux disease without esophagitis; M81.0 Age-related osteoporosis without current pathological fracture

== ENCOUNTER → 2025-07-02 08:38 | Outpatient (BNVA) | payer MEDICARE, SELFPAY | PROVIDERS: PCP Internal Medicine; Visit Provider Internal Medicine | DX: Z00.00 Encounter for general adult medical examination without abnormal findings (principal); I70.90 Unspecified atherosclerosis; E78.00 Pure hypercholesterolemia, unspecified; K21.9 Gastro-esophageal reflux disease without esophagitis; M81.0 Age-related osteoporosis without current pathological fracture; Z87.891 Personal history of nicotine dependence | CPT/HCPCS: 99397 ==

== ENCOUNTER 2025-07-05 13:21 | Outpatient (AMB) | payer MEDICARE, SELFPAY | END 2025-07-05 13:22 | disposition home or self-care (01) | LOC: HO.HMGAL 13:21 | PROVIDERS: PCP Internal Medicine; Visit Provider Registered Nurse Emergency | DX: J30.89 Other allergic rhinitis (principal) | CPT/HCPCS: 95117; 95165 ==

== ENCOUNTER 2025-08-02 13:55 | Outpatient (AMB) | payer MEDICARE, SELFPAY | END 2025-08-02 14:04 | disposition home or self-care (01) | LOC: HO.HMGAL 13:55 | PROVIDERS: PCP Internal Medicine; Visit Provider Registered Nurse Emergency | DX: J30.89 Other allergic rhinitis (principal) | CPT/HCPCS: 95117; 95165 ==

== ENCOUNTER 2025-08-30 11:11 | Outpatient (AMB) | payer MEDICARE, SELFPAY | END 2025-08-30 11:12 | disposition home or self-care (01) | LOC: HO.HMGAL 11:11 | PROVIDERS: PCP Internal Medicine; Visit Provider Registered Nurse Emergency | DX: J30.89 Other allergic rhinitis (principal) | CPT/HCPCS: 95117; 95165 ==

== ENCOUNTER 2025-10-04 12:58 | Outpatient (AMB) | payer MEDICARE, SELFPAY ==
--- OUTSIDE RECORDS SUMMARY | 2022-12-20 08:30 | XMS_ITS | Continuity of Care Document ---
Author Organization [facility] Address [address] [place] [address] [address] [place] [address] Phone Care Team Providers Care Manager Behavior Name Role Phone Todd HEATON, Matthew Unavailable Unavailable Allergies, Adverse Reactions, Alerts Substance Reaction Status Criticality No Known Allergies Active No Inform ation Medications Medication Instructions Dosage Effective Dates (start - stop) Status Comments tamsulosin 0.4 mg capsule take 1 capsule by oral route every day 1/2 hour following the same meal each day 0.4 MG - Active furosemide 20 mg tablet take 1 tablet by oral route every day 20 MG - Active spironolactone 25 mg tablet take 1 tablet by oral route every day 25 MG - Active Lipitor 40 mg tablet take 1 tablet by oral route every day 40 MG - Active Entresto 49 mg-51 mg tablet take 1 tablet by oral route 2 times every day 1.00 tablet - Active carvedilol 6.25 mg tablet take 1 tablet by oral route 2 times every day with food 6.25 MG - Active Vazalore 81 mg capsule take 1 capsule by oral route every day 81 MG - Active Eliquis 5 mg tablet take 1 tablet by oral route 2 times every day 5 MG - Active isosorbide dinitrate 30 mg tablet take 1 tablet by oral route 2 times every day 30 MG - Active Problems Condition Type Effective Dates (start - stop) Clini jose enrique Status Comments No Known Problems Procedures Procedure Date OFFICE/OUTPATIENT VISIT, NEW OFFICE/OUTPATIENT VISIT, NEW OFFICE/OUTPATIENT VISIT, EST Advance Directives Directive Yes / No Effective Date File Name No Information Encounters Encounter Description Practice Location Reason(s) For Visit Diagnoses Date Provider Providers Copied on Encounter OFFICE/OUTPA TIENT VISIT, NEW [facility], [address], [place], [place], [id number], [place] tel:[phone] [facility] Body mass index (BMI) 22.0-22.9, adultDyspneaHFrE F, NYHA Class IIIOther pulmonary embolism without acute cor pulmonaleParoxys mal atrial fibrillationAnem iaThrombocytopen iaCKDOther secondary pulmonary hypertension 3 Todd Castro. [address] [facility], [address], [place], [address], . tel:[phone] Referring Provider: Tal Aguilar, [address] [facility] [address], [place], [address] . tel:[phone] Family History Family Member Type Diagnosis Age At Onset No Information Payers Payer name Insurance type Covered libertarian ID Authoriza lory(s) [employer] [place] [facility] [id number] Social History Type Description Quantity Date Captured Comments Alcohol Use Details Unknown Caffeine Use Details Unknown Tobacco Use Status Current non-smoker Smoking Status Never smoker Non-Smoking Tobacco Use Details : No Details Available : No Details Available Sex Male Vital Signs Date / Time: Height Weight BMI Pulse Rate Blood Pressure Temperature Respiratory Rate Body Surface Area Head Circumference Head Circ. Percentile Wt./Sukumar. Percentile BMI percentile Pulse Ox Inhaled Ox 1:51 PM 69.00 in 68.039 kg (150.00 lbs) 22.1 5 kg/m eter (2) 115 /min 113/62 mm[Hg] 97.00 F 98 % Chief Complaint And Reason For Visit No Information Reason For Referral Reason For Referral No Information Plan Of Treatment Date Type Action Status Goal Dietary manageme nt education, guidance, and counseling completed Patient Education Learning About How the Lungs Work completed History Of Present Illness Encounter Date Complaint History Of Prese nt Illness No Information Functional Status Date Functional Assessmen t No Information Instructions Date Instruction Additional Infor mation Dietary management e ducation, guidance, and counseling Related to Body mass index [BMI] 22.0-22.9, adult Assessments Type Assessment Date assessment Body mass index [BMI] 22.0-22.9, adult assessment Dyspnea assessment HFrEF, NYHA Class III 3 assessment Other pulmonary embolism without acute cor pulmonale assessment Paroxysmal atrial fibrillation M assessment Anemia assessment Thrombocytopenia assessment CKD assessment Other secondary pulmonary hypert ension Patient Care Teams Name Effective Dates (start - stop) Status Members No Information
--- OUTSIDE RECORDS SUMMARY | 2025-10-04 16:12 | XMS_ITS | Encounter Summary ---
Author Organization [employer] Address [address] [place] [address] [address] [place] [address] Care Team Providers Care Nuclear Medicine Chief Technologist Name Role Phone Unavailable Primary Care Provider Unavailabl e Encounter Details Date Type Department Care Team (Latest Contact Info) Description 11/12/2019 Abstract [facility] CONVERSIONS Dental, Provider, DDS Social History Tobacco [...]
--- OUTSIDE RECORDS SUMMARY | 2025-10-04 16:12 | XMS_ITS | Encounter Summary ---
Author Organization [facility] Address [address] [place] [address] [address] [place] [address] Care Team Providers Care Roofing Plant Supervisor Name Role Phone Unavailable Primary Care Provider Unavailabl e Encounter Details Date Type Department Care Team (Latest Contact Info) Description 02/01/2022 Abstract [facility] CONVERSIONS Dental, Provider, DDS Social History [...]
--- OUTSIDE RECORDS SUMMARY | 2025-10-04 16:12 | XMS_ITS | Clinical Summary ---
Author Organization [employer] Address [address] [place] [address] [address] [place] [address] Care Team Providers Care Senior Brand Manager Name Role Phone Unavailable Primary Care Provider [...] Relevant to Health Maintenance Insurance DENTAL - [facility] DENTAL - HSN PARTIAL (MEDICAID)
--- OUTSIDE RECORDS SUMMARY | 2025-10-04 16:12 | XMS_ITS | Patient Health Record ---
Author Organization [facility] Address [address] [place] [address] Care Team Providers Care Moisture Meter Reader Name Role Phone PEPE COSTELLO Primary Care Provider Roni Leggett [phone] Allergies Allergen (clinical drug ingredient) Drug/Non Drug Allergy documented on EMR Reaction Allergy Type Onset Date Status Aleve Unknown Drug Allergy Active Reason For Referral No Information Medications Medication SIG (Take, Route, Frequency, Duration) Notes Start Date End Date Status Multivitamin Adult - Tablet Orally Active Social History Tobacco Use: Social History Observation Description Date Details (start date - stop date) Never Smoker NA - NA Social History Drugs/Alcohol: Social Info Question Answer Notes Alcohol Screen Did you have a drink containing alcohol in the past year? No Points 0 Interpretation Negative Tobacco Use: Social Info Question Answer Notes Tobacco Use/Smoking Patient is a nonsmoker Additional Details Category Social Info Options Details Miscellaneous: Marital status: Occupation: retired Section Notes: Nonsmoker; very occasional glass of wine He is a Muslim and will not accept blood transfusions Problems Problem Type SNOMED Code ICD Code Onset Dates Problem Status W/U Status Risk Notes Problem Screening for malignant neoplasm of colon ([id number]) Encounter for screening for malignant neoplasm of colon (Z12.11) Active confirmed Problem Preprocedural examination ([id number]) Preprocedural examination (Z01.818) Active confirmed Plan Of Treatment Pending Test Test Name Order Date GI BIOPSY 05/01/2017 Future Test Test Name Order Date COLONOSCOPY 02/12/2017 Insurance Providers Payer Name Payer Address Payer Phone Subscriber Number Group Number Insured Name Patient Relationship to Insured Coverage Start Date Coverage End Date [facility] [address] [place] [phone] [id number] SARBJIT REZA Self - patient is the insured Medical (General) History Medical History History ICD Code Denies [place],DM,CVA,Lung disease,renal dise ase Neg colonoscopies in 2005 and approx [address] Medina Surgical History Surgery Date(Month/Year) Left inguinal hernia repair Back surgery lower--Dr. Miguel 2012 Right wrist surgery right 2016 Banding of hemorrhoids with Dr. Medina in 2005
== END 2025-10-04 12:58 | disposition home or self-care (01) ==
LOC: HO.HMGAL 12:58
PROVIDERS: PCP Internal Medicine; Visit Provider Registered Nurse Emergency
DX: J30.89 Other allergic rhinitis (principal)
CPT/HCPCS: 95117; 95165